=== PATIENT | female | born 1945 | race Caucasian/White ===

== ENCOUNTER 2016-11-09 16:49 | Inpatient (IN) | payer OTHER ==
[~2016-11-09] VITALS: Ht 154.9 cm; Wt 63.5 kg
[~2016-11-09 16:49] MED LIST: ADVAIR DISKUS 21 DSK INH; ALBUTEROL SULFAT3 M1 INH; B COMPLEX1 TA1 PO; B12-METHYL1000 MCG PO; CLARITIN10 MG PO; ENULOSE 2020 GM/30 M PO; FOLIC ACID0.8 MG PO; FUROSEMIDE20 MG PO; KLOR-CON 10MEQ10 MEQ PO; MASON NATURAL2000 IU PO; MIRTAZAPINE7.5 MG PO; MOXIFLOXACIN H400 M1 PO; OMEPRAZOLE40 MG PO; PREDNISONE10 MG PO; PROAIR HFA0.09 MG/Ac INH; SPIRIVA 18 MCG18 MCG PO; SYNTHROID0.025 MG PO; TRICOR 145 MG145 MG PO; VENTOLIN H0.09 MG/Ac INH; VITAMIN E400 IU PO; WELCHOL 625 MG625 MG PO
--- NOTE | 2016-11-09 16:52 | NUR ---
PT BIBA FROM HOME FOR INCREASED SOB OVER THE PAST FEW DAYS. PT ALSO STATES SHE HAD CHEST PAIN YESTERDAY THAT WENT ACROSS HER BACK. PT ARRIVES HAVING A DUO NEB SAT 98% WHILE ON NEB. PT IS ALERT AND ORIENTED, COUGHING AT TIMES WET COUGH THAT IS NORMAL FOR HER. PT DENIES CHEST PAIN TODAY.
--- NOTE | 2016-11-09 16:55 | ED DYSPNEA/ASTHMA COMPLAINT ---
History of Present Illness General Chief Complaint: Dyspnea (COPD, CHF, Other) Stated Complaint: BIBA SOB Source: patient, old records, EMS Exam Limitations: no limitations Allergies Coded Allergies: NO KNOWN ALLERGIES (06/08/12) Reconcile Medications Albuterol Sulfate 2.5 MG/3 ML (0.083 %) VIAL.NEB 1 Vial INH/ARIEL BID RESPIRATORY (Reported) Albuterol Sulfate (Proair Hfa) 90 MCG HFA.AER.AD 2 PUF INH PRN RESPIRATORY ( Reported) Cholecalciferol (Vitamin D3) (Vitamin D) 2,000 UNIT CAPSULE 1 CAP PO DAILY SUPPLEMENT (Reported) Cinacalcet HCl (Sensipar) 30 MG TABLET 1 TAB PO DAILY UNKNOWN (Reported) Cyanocobalamin (Vitamin B-12) 1,000 MCG TABLET 1 TAB PO DAILY SUPPLEMENT ( Reported) Fenofibrate 160 MG TABLET 1 TAB PO DAILY TRIGLYCERIDES/CHOLESTEROL (Reported) Fluticasone/Salmeterol (Advair 250-50 Diskus) 250 MCG-50 MCG/DOSE BLST.W.DEV 1 PUF INH BID RESPIRATORY (Reported) Levothyroxine Sodium 50 MCG TABLET 1 TAB PO AD THYROID (Reported) Levothyroxine Sodium (Levoxyl) 75 MCG TABLET 1 TAB PO AD THYROID (Reported) Loratadine (Claritin) (Unknown Strength) TABLET (Unknown Dose) PO DAILY ALLERGIES/RESPIRATORY (Reported) Mirtazapine (Remeron) 15 MG TAB.RAPDIS 0.5 TAB PO QHS UNKNOWN (Reported) Multivitamin,Ther and Minerals (Multivitamins With Minerals Hp) 1 EACH CAPSULE 1 CAP PO DAILY SUPPLEMENT (Reported) Omeprazole 40 MG CAPSULE.DR 1 CAP PO DAILY GI (Reported) Potassium Chloride 20 MEQ TAB.ER.PRT 1 TAB PO DAILY SUPPLEMENT (Reported) Tiotropium [place] (Spiriva) 18 MCG CAP.W.DEV 1 CAP INH DAILY RESPIRATORY ( Reported) Vitamin B Complex (B Complete) 1 EACH TABLET 1 TAB PO DAILY SUPPLEMENT ( Reported) Vitamin E Mixed (Vitamin E) 400 UNIT CAPSULE 1 CAP PO DAILY SUPPLEMENT ( Reported) Triage Note: PT BIBA FROM HOME FOR INCREASED SOB OVER THE PAST FEW DAYS. PT ALSO STATES SHE HAD CHEST PAIN YESTERDAY THAT WENT ACROSS HER BACK. PT ARRIVES HAVING A DUO NEB SAT 98% WHILE ON NEB. PT IS ALERT AND ORIENTED, COUGHING AT TIMES WET COUGH THAT IS NORMAL FOR HER. Triage Nurses Notes Reviewed? yes Onset: Gradual Duration: constant Timing: recent history Severity: severe Activities at Onset: none Prior Episodes/Possible Cause: frequent episodes, chronic episodes Modifying Factors: Improves With: rest. Worsens With: movement. 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 Patient does state that she had chest pain yesterday all day substernal in nature location nonradiating however today patient describes no chest pain. Complains of unresolved wheezing with multiple nebulizer treatments at home. EMS currently has dual nebulizer treatment administered ON arrival Denies any current fever or chills chest pain and arm pain jaw pain nausea vomiting hemoptysis leg swelling. (MICKEY COREY,STEPHY) Vital Signs & Intake/Output Vital Signs & Intake/Output Vital Signs Date Time Temp Pulse Resp B/P Pulse O2 O2 Flow FiO2 Ox Delivery Rate 11/09 1906 98.6 116 20 135/80 96 Nasal 3.0L Cannula 11/09 1715 96 11/09 1653 98.3 125 20 131/69 98 Aerosol Mask Past History Travel History Traveled to [place] past 21 day No Medical History Any Pertinent Medical History? see below for history Neurological: NONE (peripheral neuropathy from alc) EENT: NONE Cardiovascular: hypertension, hyperlipidemia (alcoholic cardiomyopathy), PERIPHERAL EDEMA Respiratory: asthma, COPD Gastrointestinal: alcoholic hepatitis, pancreatitis Hepatic: jaundice, fatty liver Renal: mild renal insufficiency Musculoskeletal: degen joint disease Psychiatric: substance abuse (ETOH) Endocrine: hypothyroidism Blood Disorders: coagulopathy Cancer(s): NONE PITCH GATHERER/Reproductive: NONE History of MRSA: No History of VRE: No History of CDIFF: No Pneumonia Vaccine: 06/24/14 Influenza Vaccine: 06/06/15 Surgical History Surgical History: hysterectomy, N Psychosocial History Who do you live with Patient/Self Services at Home Home Health Aide (3L n.c.), Oxygen What is your primary language Swazi Tobacco Use: Current Daily Use Daily Tobacco Use Amount/Type: =< 4 Cigarettes daily ETOH Use: denies use Illicit Drug Use: denies illicit drug use Family History Family History, If Any: FATHER FH ischemic heart disease MOTHER FH ischemic heart disease Hx Contributory? No (STEPHY LONG) Review of Systems Review of Systems Constitutional: Denies: chills, fever. EENTM: Reports: no symptoms. Respiratory: Reports: see HPI, short of breath. Cardiovascular: Reports: see HPI. Denies: peripheral edema. GI: Reports: no symptoms. Genitourinary: Reports: no symptoms. Musculoskeletal: Reports: no symptoms. Skin: Reports: no symptoms. Neurological/Psychological: Reports: no symptoms. Hematologic/Endocrine: Reports: no symptoms. Immunologic/Allergic: Reports: no symptoms. All Other Systems: Reviewed and Negative (STEPHY LONG) Physical Exam Physical Exam General Appearance: no apparent distress, alert Head: atraumatic Eyes: Bilateral: normal appearance. Ears, Nose, Throat: normal pharynx, normal ENT inspection Neck: normal inspection, supple Respiratory: wheezing, respiratory distress (MODERATE) Cardiovascular: tachycardia Gastrointestinal: normal bowel sounds, soft, non-tender, no organomegaly Extremities: normal inspection, normal capillary refill, normal range of motion, no edema Skin: intact, normal color, warm/dry Lymphatic: no anterior cervical venkat Core Measures ACS in differential dx? Yes Severe Sepsis Present: No Septic Shock Present: No (STEPHY LONG) Progress Differential Diagnosis: asthma, AMI, bronchitis, costochondritis, CHF, COPD, musculoskeletal pain, pericarditis, pulmonary embolism, pneumonia, pneumothorax, rib fracture, unstable angina Diagnostic Imaging: Viewed by Me: Radiology Read. Radiology Impression: no acute abnormality Initial ED EKG: SINUS TACHYCARDIA 127 BPM, BORDERLINE Q WAVE ABNORMALITIES Prior EKG: unchanged Comments: PATIENT: BELINDA CLEANING PRESENT AGE: 71 PATIENT ACCOUNT NO: [id number] : 47 LOCATION: [facility] ORDERING PHYSICIAN: STEPHY COREY SERVICE DATE: 11/09/16 EXAM TYPE: RAD - XRY-PORTABLE CHEST XRAY EXAMINATION: XR PORTABLE CHEST CLINICAL INFORMATION: Wheezing, shortness of breath COMPARISON: Chest x-ray 07/25/2016 TECHNIQUE: Portable AP portable 80 degree view of the chest was obtained. FINDINGS: Cardiac mediastinal contours appear stable. The lungs are clear without focal consolidation or effusion. Scattered subsegmental atelectasis left lung base is stable compared to prior study. Visualized osseous structures grossly unremarkable. IMPRESSION: No acute cardiopulmonary process DICTATED BY: MELIDA KEYES MD DATE/TIME DICTATED:11/09/161729 (MICKEY COREY,STEPHY) Plan of Care: Orders Procedure Date/time Status Nothing by Mouth 11/10 B Active Saline Lock 11/10 1911 Active Misc Message 11/10 1911 Active ED Holding Orders 11/10 1911 Active Vital Signs 11/10 1911 Active Code Status 11/10 1911 Active Admit to inpatient 11/09 1910 Active Patient Data 11/09 1899 Active Add-on Test (ER Only) 11/09 1738 Active MAGNESIUM 11/09 1700 Complete ETHANOL 11/09 1700 Complete RAPID VIRAL INFLUENZA A 11/09 1653 Complete BLOOD CULTURE 11/09 1653 Active TROPONIN LEVEL 11/09 1653 Complete COMPREHENSIVE METABOLIC PANEL 11/09 1653 Complete CBC WITHOUT DIFFERENTIAL 11/09 1653 Complete B-TYPE NATRIURETIC PEP (BNP) 11/09 1653 Complete EKG 11/09 1653 Active Laboratory Tests 11/09/16 170: Anion Gap 14, Estimated GFR > 60, BUN/Creatinine Ratio 21.1, Glucose 281 H, Calcium 11.0 H, Magnesium 0.9 *L, Total Bilirubin 1.5 H, AST 76 H, ALT 50, Alkaline Phosphatase 60, Troponin I 0.03, Cco-R-Vzaztgtnnnb Pept 2430 H, Total Protein 7.1, Albumin 4.4, Globulin 2.7, Albumin/Globulin Ratio 1.6, CBC w Diff MAN DIFF ORDERED, RBC 4.75, MCV 105.1 H, MCH 35.5 H, RDW 13.7, MPV 9.0, Gran % 91.9 H, Lymphocytes % 2.9 L, Monocytes % 4.9, Eosinophils % 0, Basophils % 0.3 , Absolute Granulocytes 18.3 H, Segmented Neutrophils 75, Band Neutrophils 15 H, Absolute Lymphocytes 0.6 L, Lymphocytes 6 L, Monocytes 4, Absolute Monocytes 1.0 H, Absolute Eosinophils 0, Absolute Basophils 0.1, Platelet Estimate ADEQUATE, Normal RBC Morphology N, PUBS MCHC 33.8, Serum Alcohol 11.0 Microbiology 11/09 1709 NASOPHARYN: Influenza Virus A & B Rapid Smear - COMP 11/09 1653 BLOOD: Blood Culture - ORD 11/09 1653 BLOOD: Blood Culture - ORD Patient currently with 3 L of oxygen nasal cannula supplementation her oxygen saturation is 95%. Patient is TACHYPNEIC has mild respiratory distress IN which chest x-ray was unremarkable however patient does have significant leukocytosis and bandemia. Urine BLOOD culture and sputum culture currently pending. Due to history of present illness patient's comorbidities of COPD and current smoker she will be treated for concerns of bacterial bronchitis with azithromycin and Rocephin. IV fluid was administered. Patient's tachycardia is most likely due to multiple DOSES OF BETA agonist administration today. My concern OF pulmonary embolism is very low. (STEPHY LONG) Departure Departure Disposition: STILL A PATIENT Condition: Guarded Clinical Impression Primary Impression: COPD (chronic obstructive pulmonary disease) Secondary Impressions: Bandemia, Bronchitis, Hypomagnesemia, Leukocytosis Referrals: EUNICE MARION MD (PCP/Family) Departure Forms: Customer Survey General Discharge Information Admission Note Spoke With: HEAVEN PAREDES MD Documentation of Exam: Documentation of any treatments & extenuating circumstances including Concerns Regarding Discharge (functional status, medication knowledge or non-compliance, living conditions, etc.) that warrant an admission rather than observation: [ Discussed patient with DR PAREDES who agrees with TELEmed admission for concerns of COPD,, tachycardia and hypo-magnesium IN WHICH patient requires IV steroids, IV antibiotics, IV fluid resuscitation, pulmonary consultation, repeat labs] Outpatient treatment at this time due to critical findings would BE medically harmful (STEPHY LONG) PA/CLINICAL DOCUMENTATION SPECIALIST Co-Sign Statement Statement: ED Attending supervision documentation- [x] I saw and evaluated the patient. I have also reviewed all the pertinent lab results and diagnostic results. I agree with the findings and the plan of care as documented in the PA's/CLINICAL DOCUMENTATION SPECIALIST's documentation. [] I have reviewed the ED Record and agree with the PA's/CLINICAL DOCUMENTATION SPECIALIST's documentation. [] Additions or exceptions (if any) to the PAs/CLINICAL DOCUMENTATION SPECIALIST's note and plan are summarized below: [] (CARYL HOFFMANN,TAYLA Pete) Critical Care Note Critical Care Note Critical Care Time: 30-74 min (STEPHY LONG)
[2016-11-09] MEDS ORDERED: LEVOXYL75 MCG PO (17:01)
[2016-11-09] MEDS ORDERED: LEVOTHYROXINE50 MCG PO (17:01)
[2016-11-09] MEDS ORDERED: POTASSIUM CHLO20 ME2 PO (17:02)
[2016-11-09] MEDS ORDERED: CLARITIN10 M1 PO (17:02)
[2016-11-09] MEDS ORDERED: VITAMIN D2000 UNIT PO (17:03)
[2016-11-09] MEDS ORDERED: VITAMIN E400 UNIT PO (17:03)
[2016-11-09] MEDS ORDERED: ADVAIR 250-501 EACH INH (17:04)
[2016-11-09] MEDS ORDERED: SPIRIVA18 MCG INH (17:04)
[2016-11-09] MEDS ORDERED: OMEPRAZOLE40 M1 PO (17:05)
[2016-11-09] MEDS ORDERED: ALBUTEROL2.5 MG/3 M INH/SOL (17:05)
[2016-11-09] MEDS ORDERED: SENSIPAR30 M1 PO (17:05)
[2016-11-09] MEDS ORDERED: B COMPLETE1 EACH PO (17:06)
[2016-11-09] MEDS ORDERED: MULTIVITAMINS1 EAC3 PO (17:06)
[2016-11-09] MEDS ORDERED: REMERON15 M3 PO (17:07)
[2016-11-09] MEDS ORDERED: VITAMIN B-121000 MC3 PO (17:07)
[2016-11-09 17:08] LABS: ABSOLUTE BASOPHIL COUNT 0.1 /CUMM (0.0-0.2); ABSOLUTE EOSINOPHIL COUNT 0 /CUMM (0.0-0.7); ABSOLUTE GRANULOCYTE CT 18.3 /CUMM (1.4-6.5); ABSOLUTE LYMPH COUNT 0.6 /CUMM (1.2-3.4); BASOPHIL % 0.3 % (0.0-2.0); EOSINOPHIL % 0 % (0-5); HEMATOCRIT 49.9 % (37-47); MEAN CORPUSCULAR HGB 35.5 PG (27.0-31.0); MEAN CORPUSCULAR HGB CONC 33.8 G/DL (33.0-37.0); MEAN CORPUSCULAR VOLUME 105.1 FL (81.0-99.0); PLATELET COUNT 171 /CUMM (130-400); RBC DISTRIBUTION WIDTH 13.7 % (11.5-14.5); RED BLOOD CELL CT 4.75 /CUMM (4.20-5.40); WHITE BLOOD CELL COUNT 19.9 /CUMM (4.8-10.8)
[2016-11-09] MEDS ORDERED: PROAIR HFA8.5 GM INH (17:08)
[2016-11-09] MEDS ORDERED: FENOFIBRATE160 M1 PO (17:08)
--- NOTE | 2016-11-09 17:34 | RADIOLOGY REPORT ---
EXAMINATION: XR PORTABLE CHEST CLINICAL INFORMATION: Wheezing, shortness of breath COMPARISON: Chest x-ray 07/25/2016 TECHNIQUE: Portable AP portable 80 degree view of the chest was obtained. FINDINGS: Cardiac mediastinal contours appear stable. The lungs are clear without focal consolidation or effusion. Scattered subsegmental atelectasis left lung base is stable compared to prior study. Visualized osseous structures grossly unremarkable. IMPRESSION: No acute cardiopulmonary process
[2016-11-09 17:35] LABS: GRANULOCYTE % 91.9 % (42.2-75.2)
--- NOTE | 2016-11-09 18:09 | NUR ---
PT RECEIVED SECOND NEB TREATMENT IF FLUIDS AND ABX INFUSING DIRECTED
--- NOTE | 2016-11-09 18:25 | NUR ---
CRITICAL TEST RESULTS [id number] BELINDA CLEANING 71 F TESTS AND RESULTS: MAGNESIUM 0.9 Results received and read back by: ANITRA RUFFIN Results received date and time: 11/09/161824 The following provider was notified of the results, and read the results back: MADHAV AREVALO Notified date and time: 11/09/16 at 1825
--- NOTE | 2016-11-09 19:03 | NUR ---
MAG INFUSING DIRECTED
--- NOTE | 2016-11-09 19:57 | NUR ---
CONT TO AWAIT BED. ZITHROMAX 500 MG IV CONT TO INFUSE HEIGHT ELEVATED. PT SOB AT REST REPORTS SEVERE DISCOMFORT ON STRETCHER, SKIN DRY AND FLAKY, AUDIBLES WHEEZES AND RHONCHI THROUGHOUT BUT DENEIS NEED FOR BREATHING TREATMENT REPORTS JUST WANTING TO BE MORE COMF IN BED. DAUGHTER AT BEDSIDE.
--- NOTE | 2016-11-09 20:01 | History & Physical ---
KRISTIAN GOINS MD 11/09/16 2001: General Information and HPI MD Statement: I have seen and personally examined BELINDA BARBOSA and documented this H&P. The patient is a 71 year old F who presented with a patient stated chief complaint of shortness of breath. Source of Information: patient, family, old records Exam Limitations: no limitations History of Present Illness: Ms. 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 Patient reports that for the past 1 month, her baseline shortness of breath has worsened and has required to increase her nebulizer usage. However, for the past few days her shortness of breath has progressed to require day-time usage of her oxygen and even more frequent nebulizer treatments. This shortness of breath is constant, worse with exertion and talking and has resulted in decreased exercise tolerance. Associated symptoms include wheezing, cough minimally productive of sputum, lethargy, anxiety, decreased mobility, and this substernal, 8/10 chest pressure that is intermittent and occasionally radiates to the back. This chest pain is not relieved with rest, slightly improved from an 8/10 to a 6/10 with tylenol, and always occurs when her shortness of breath is severe. Patient also endorses new onset nausea and abdominal pain which has caused her to limit her PO intake. Patient denies fever, chills, sore throat, recent illness/ear/throat infection, orthopnea, abdominal pain, vomiting. Social history is significant for tobacco abuse with use of 4-5 cigarettes per day; patient has been smoking for 55 years and is currently in the process of cutting back. She also drinks 2-3 vodka servings a day and has so for years. She denies illicit drug use. Patient lives at home with her dog and uses supplemental oxygen. She follows [facility] Dr. Sullivan as her cheese specialist and Dr. Sheppard as her order make up clerk. Allergies/Medications Allergies: Coded Allergies: NO KNOWN ALLERGIES (06/08/12) Home Med list Albuterol Sulfate 2.5 MG/3 ML (0.083 %) VIAL.NEB 1 Vial INH/ARIEL BID RESPIRATORY (Reported) Albuterol Sulfate (Proair Hfa) 90 MCG HFA.AER.AD 2 PUF INH PRN RESPIRATORY ( Reported) Cholecalciferol (Vitamin D3) (Vitamin D) 2,000 UNIT CAPSULE 1 CAP PO DAILY SUPPLEMENT (Reported) Cinacalcet HCl (Sensipar) 30 MG TABLET 1 TAB PO DAILY UNKNOWN (Reported) Cyanocobalamin (Vitamin B-12) 1,000 MCG TABLET 1 TAB PO DAILY SUPPLEMENT ( Reported) Fenofibrate 160 MG TABLET 1 TAB PO QPM TRIGLYCERIDES/CHOLESTEROL (Reported) Fluticasone/Salmeterol (Advair 250-50 Diskus) 250 MCG-50 MCG/DOSE BLST.W.DEV 1 PUF INH BID RESPIRATORY (Reported) Furosemide (Lasix) 20 MG TABLET 1 TAB PO DAILY Heart (Reported) Levothyroxine Sodium 50 MCG TABLET 1 TAB PO M,T,W,TH,FR THYROID (Reported) Levothyroxine Sodium (Levoxyl) 75 MCG TABLET 1 TAB PO SA,BAEZA THYROID (Reported ) Loratadine (Claritin) (Unknown Strength) TABLET (Unknown Dose) PO DAILY ALLERGIES/RESPIRATORY (Reported) Mirtazapine (Remeron) 15 MG TAB.RAPDIS 0.5 TAB PO QHS UNKNOWN (Reported) Multivitamin,Ther and Minerals (Multivitamins With Minerals Hp) 1 EACH CAPSULE 1 CAP PO DAILY SUPPLEMENT (Reported) Omeprazole 40 MG CAPSULE.DR 1 CAP PO DAILY GI (Reported) Potassium Chloride 20 MEQ TAB.ER.PRT 1 TAB PO DAILY SUPPLEMENT (Reported) Tiotropium Sherrill (Spiriva) 18 MCG CAP.W.DEV 1 CAP INH DAILY RESPIRATORY ( Reported) Vitamin B Complex (B Complete) 1 EACH TABLET 1 TAB PO DAILY SUPPLEMENT ( Reported) Vitamin E Mixed (Vitamin E) 400 UNIT CAPSULE 1 CAP PO DAILY SUPPLEMENT ( Reported) Compliance With Home Meds: GOOD Past History Travel History Traveled to [place] past 21 day No Medical History Neurological: NONE (peripheral neuropathy from alc) EENT: NONE Cardiovascular: hypertension, hyperlipidemia (alcoholic cardiomyopathy), PERIPHERAL EDEMA Respiratory: asthma, COPD Gastrointestinal: alcoholic hepatitis, pancreatitis Hepatic: jaundice, fatty liver Renal: mild renal insufficiency Musculoskeletal: degen joint disease Psychiatric: substance abuse (ETOH) Endocrine: hypothyroidism Blood Disorders: coagulopathy Cancer(s): NONE MUSIC AGENT/Reproductive: NONE History of MRSA: No History of VRE: No History of CDIFF: No Pneumonia Vaccine: 06/24/14 Influenza Vaccine: 06/06/15 Surgical History Surgical History: hysterectomy, N Past Family/Social History Family History Relations & Conditions if any FATHER FH ischemic heart disease MOTHER FH ischemic heart disease Psychosocial History Where do you live? Home Who Do You Live With? alone Services at Home: Home Health Aide (3L n.c.), Oxygen Primary Language: Armenian Smoking Status: Current Everyday Smoker ETOH Use: heavy use Illicit Drug Use: denies illicit drug use Living Will? unknown Power of Dry Kiln Burner/HCP? unknown Functional Ability ADLs Independent: dressing, eating, toileting, bathing. Ambulation: independent IADLs Independent: shopping, housework, finances, food prep, telephone, transportation , medication admin. Review of Systems Review of Systems Constitutional: Reports: diaphoresis, malaise. Denies: chills, fever, unexplained weight loss. EENTM: Denies: visual changes, nasal congestion, throat pain. Cardiovascular: Reports: chest pain. Denies: orthopena, palpitations, peripheral edema. Respiratory: Reports: cough, short of breath, wheezing. Denies: orthopnea, sputum production , stridor. GI: Reports: see HPI, nausea. Denies: abdominal pain, vomiting. Genitourinary: Denies: dysuria, hematuria. Musculoskeletal: Denies: back pain. Skin: Denies: rash. Neurological/Psychological: Reports: anxiety. Denies: confusion, headache. Hematologic/Endocrine: Denies: bruising, bleeding. Immunologic/Allergic: Denies: splenectomy. All Other Systems: Reviewed and Negative Exam & Diagnostic Data Last 24 Hrs of Vital Signs/I&O Vital Signs Date Time Temp Pulse Resp B/P Pulse O2 O2 Flow FiO2 Ox Delivery Rate 11/10 2055 99.2 115 20 146/88 97 Nasal 3.0L Cannula 11/09 1905 98.6 116 20 135/80 96 Nasal 3.0L Cannula 11/09 1715 96 11/09 1653 98.3 125 20 131/69 98 Aerosol Mask Physical Exam General Appearance Alert, Oriented X3, Cooperative, Moderate Distress Skin No Rashes, No Significant Lesion HEENT Atraumatic, PERRLA, EOMI, Mucous Membr. moist/pink Neck Supple, +2 Carotid Pulse wo Bruit Lymphatic Cervical nl Cardiovascular Tachycarid with normal S1/S2 Lungs Diffuse wheezing in all lung bridges with decreased air entry bilaterally. Decreased basal breath sounds. Abdomen Normal Bowel Sounds, Soft, Petechia noted on abdomen., tenderness to palpation of epigastric region Neurological Normal Speech, Normal Tone Extremities No Clubbing, No Cyanosis, No Edema, Normal Pulses, No Tenderness/ Swelling Vascular Pulses Symmetrical Last 24 Hrs of Labs/Pablo: Laboratory Tests 11/09/162054: pH 7.46 H, pCO2 33 L, pO2 85, HCO3 23, ABG O2 Sat (Measured) 94.0 L, P-50 ( Temp Corrected) Y, Carboxyhemoglobin 1.9, O2 Concentration % 3L, Temperature 98.9, O2 Delivery Method N/C, Phlebotomy Draw Site RIGHT RADIAL 11/09/16 170: Anion Gap 14, Estimated GFR > 60, BUN/Creatinine Ratio 21.1, Glucose 281 H, Calcium 11.0 H, Magnesium 0.9 *L, Total Bilirubin 1.5 H, AST 76 H, ALT 50, Alkaline Phosphatase 60, Troponin I 0.03, Nnd-K-Rlhakauvlvt Pept 2430 H, Total Protein 7.1, Albumin 4.4, Globulin 2.7, Albumin/Globulin Ratio 1.6, CBC w Diff MAN DIFF ORDERED, RBC 4.75, MCV 105.1 H, MCH 35.5 H, RDW 13.7, MPV 9.0, Gran % 91.9 H, Lymphocytes % 2.9 L, Monocytes % 4.9, Eosinophils % 0, Basophils % 0.3 , Absolute Granulocytes 18.3 H, Segmented Neutrophils 75, Band Neutrophils 15 H, Absolute Lymphocytes 0.6 L, Lymphocytes 6 L, Monocytes 4, Absolute Monocytes 1.0 H, Absolute Eosinophils 0, Absolute Basophils 0.1, Platelet Estimate ADEQUATE, Normal RBC Morphology N, PUBS MCHC 33.8, Serum Alcohol 11.0 Microbiology 11/09 2099 URINE ROUT: Urine Culture - ORD 11/09 1936 BLOOD: Blood Culture - RECD 11/09 1929 BLOOD: Blood Culture - RECD 11/09 1709 NASOPHARYN: Influenza Virus A & B Rapid Smear - COMP Diagnostic Data EKG Results Sinus tacyhcardia, HR 127, QTC 431, WA 120 CXR Results IMPRESSION: No acute cardiopulmonary process Assessment/Plan Assessment: Ms. 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 She has no recent travel, no recent illness, no change in medicaitons and no sick contacts. Associated symptoms include wheezing, cough minimally productive of sputum, malaise, decreased oral intake, nausea without vomiting, decreased exercise tolerance, substernal chest pain that radiates to the back, increased usage of her home oxygen and home nebulizers. In the ED: Vital signs showed T 98.3, HR 125, RR 20, BP 131/69 and O2 saturation of 98% on aerosol mask. Labs were significant for leukocytosis to 19.9 with 15 bands and 92% granulocytes, H&H 16.9/49.9, Na 135, Cl 97, BUN 19, Glu 281, Calcium 11, Mag 0.9, TBili 1.5, AST 76, ALT 50, trop 0.03, proBNP 2430 and serum alcohol 11. ABG showed pH 7.46, pCO2 33, pO2 85, HCO3 23 and O2 sat 94% on 3L NC. CXR showed no acute cardiopulmonary process. EKG showed sinus tachycardia at HR 127, QTC 431 and WA 120. Chest CTA showed no acute PE, right middle lobe opacities, stable emphysematous changes, unchanged left adrenal adenoma, and acute pancreatitis. Patient is admitted to the telemetry floor and the following is the management: 1. Acute on chronic respiratory failure with sepsis in the setting of severe emphysema and COPD * Diffuse wheezing appreciated on lung examination with tachypnea and difficulty speaking more than 2 words at a time * Likely COPD exacerbation with diffuse wheezing on examination as well as pneumonia seen on CTA * Patient given 125 IV solumedrol, proven, azithromycin, and ceftriaxone while in the ED * ABG shows no retention and patient currently does not require intubation, however she agrees to intubation if need arises; monitor respiratory status and consider BiPAP if she becomes fatigued * Continue supplemental O2 as needed to maintain appropriate O2 saturation * Continue steroids with 60 mg IV solumdrol Q8 * Pulmonology consult with Dr. Laurie to be placed in the AM * Leukocytosis with bandemia is present and CTA shows right middle lobe opacity, will treat with IV ceftriaxone and azithromycin * Follow up blood cultures, LRC 2. Tachycardia * Possibly secondary to frequent nebulizers she has had today along with current anxiety (patient has had a total of 4 neb treatments today) * In the setting of hypoxia, tachycardia and a moderate Wells score, CTA was ordered and ruled out PE * Trend troponins/EKG to rule out ACS, first trop/EKG shows no elevation/no ST changes * Continuous telemetry monitoring, no need for cardio consult at this time 3. Acute pancreatitis * CTA suggestive of acute pancreatitis, along with nausea, decreased oral intake , and tenderness to palpation of epigastric area * NPO for now * IV LR at 150 cc/h and banana bag at 125 cc/h * Morphine for severe pain * No GI consult needed at this time * Hold lasix due to hemoconcentration 4. Hypomagnesemia * Possibly secondary to chronic alcohol use vs hypercalcemia * Patient given 2 bags magnesium sulfate in the emergency room * Will recheck Mag level in AM and replete as necessary 5. Hypercalcemia * Patient reports persistent hypercalcemia at least for the last 2 months which she was recently started on Cinacalcet for * Continue cinacalcet 30 mg PO daily * Monitor Ca level during hospitalization 6. Alcohol abuse * Patient counseled on alcohol cessation * Initiate CIWA * IV lorazepam Q1P per CIWA scale * F/U B12, folate 7. Tobacco abuse * Patient counseled on tobacco cessation, currently attempting to decrease use * Patient does not want a nicotine patch at this time 8. Hypothyroidism * Continue synthroid 9. HLD * Continue fenofibrate 145 mg PO daily FULL CODE DVTP: SC Lovenox Heart healthy diet Mild pain pathway As Ranked By This Provider Problem List: 1. Hypomagnesemia 2. Bandemia 3. Leukocytosis Core Measures/Miscellaneous Acute Coronary Syndrome ACS Diagnosis: No Cerebrovascular Accident CVA/TIA Diagnosis: No Congestive Heart Failure CHF Diagnosis: No Venous Thromboembolism VTE Risk Factors: Acute medical illness, Age > 40, Smoking [facility] prophylaxis d/t: No contraindications No VTE Pharm Prophylaxis d/t: No contraindications VTE Diagnosis: No VTE Type: NONE VTE Confirmed by (Test): NONE Severe Sepsis Severe Sepsis Present: No Septic Shock Septic Shock Present: No Miscellaneous Documentation Attending Case Discussed With: EARNESTINE PAREDES MDKwesi Primary Care Physician: SANAM HOFFMANN,[facility] Patient sees these Specialists Dr. Sullivan, Pulmonology Dr. Sheppard, Endocrinology Level of Patient Care: Telemetry EARNESTINE PAREDES MD 11/09/162125: Attending MD Review Statement Attending Statement Attending MD Statement: examined this patient, discuss w/resident/PA/STRETCH MACHINE OPERATOR, agreed w/resident/PA/STRETCH MACHINE OPERATOR, discussed with family Attending Assessment/Plan: 71 yo F smoker, with h/o COPD on 2.5 L nocturnal O2, alcohol dependence with h/o DT's, alcoholic cardiomyopathy and pancreatitis, HTN, hypercalcemia on cinacalcet, hypothyroidism, B12 deficiency with peripheral neuropathy, is here with gradual worsening of dyspnea on exertion with increasing use of inhalers and daytime use of oxygen. Associated with cough, wheezing, chest tightness and anxiety. C/o nausea and epigastric abdominal pain. No sick contacts, recent travel. Last COPDE was Sep 2015, intubated in 2012 for COPDE. She continues to drink alcohol daily. Vitals: afebrile, tachycardic to 110-120's, tachypneic, BP 146/88, sats 97% on 3L. On our evaluation, patient was in moderate respiratory distress, unable to complete full sentences, anxious with pursed lip breathing. Chest: b/l expiratory wheezes with diffuse rhonchi. Labs: WBC 19.9, H/H 16.9/49.9, macrocytosis, Plt 171, bandemia 15, BUN 19, glucose 281, Ca 11, Mag 0.9, T. Bili 1.5, AST 76, ALT 50, trop neg. S. Alcohol 11. AB.46/33/85/23 on 3L ( respiratory alkalosis). CXR: no acute process. CTA: no PE, RML pneumonia, emphysema, imaging suggestive of acute pancreatitis. EKG: Sinus tachycardia. Echo (2015): EF > 55%. Tele admit for 24 hours (given hypomagnesemia and tachycardia) can then downgrade to GM if no overnight events. 1. Acute on chronic hypoxic respiratory failure with sepsis 2/2 right middle lobe pneumonia and COPDE. No PE or CHF. TRC nebs, sputum cultures, urine legionella and strep Ag, NPO, low threshold for ICU transfer in case respiratory status worsens, IV ceftriaxone and azithro, IV steroids. Smoking cessation counseling, patient refuses nicotine patch. Pulm consult Dr. Sullivan. Continue advair, hold spiriva. 2. Chest tightness, radiating to the back 2/2 pneumonia and COPD. Serial EKG and troponin, holding off on Echo. 3. Epigastric pain, nausea, CT e/o acute pancreatitis in the setting of alcohol use, checking lipase and amylase. Keep NPO, IV fluids, pain management. Hold lasix. 4. Severe hypomagnesemia 2/2 alcohol use, alcohol dependence. Replete magnesium, monitor K and phos levels. NPO, aspiration precautions, CIWA protocol, IV ativan per CIWA, banana bag daily. Check B12, folic acid. 5. Hypercalcemia. Ct. Cinacalcet. 6. Hyperglycemia. Monitor accucheks, last A1c 6.0 (Sep 2015), please recheck HbA1c. If persistently elevated sugars while on steroids, may need insulin coverage. 7. Transaminitis alcohol induced. DVT ppx Lovenox. Full code. KULDIP HOFFMANN,[facility] 11/09/16 2224: Resident Review Statement Resident Statement: examined this patient, discussed with internet ecommerce specialist, agreed with internet ecommerce specialist Other Findings: 71 y/o F with a PMH of COPD on 2.0 L at night (severe emphysema with an asthma component), ETOH with alcoholic cardiomyopathy, ETOH induced pancreatitis, HTN, HLD, Hypothyroidism who presents to the ED with complaints of increased shortness of breath over the last 24 hours. She reports that she started to have chest pain yesterday, that went across her back. This was associated with some shortness of breath. She is unable to characterize her pain. She used her nebulizers twice this morning, she also received a treatment on her way here and received one more treatment in the ED. No recent URI or other infections. She does have a history of severe COPD and was intubated in 2014. Vitals: Showed increased RR, Tachycardia, afebrile Labs: Elevated WBC with bandemia, Hypomagnesemia to 0.9, ProBNP 2430 Imaging: CXR WNL ABG shows respiratory alkalosis with no retention of CO2 Physical Exam: In visible respiratory distress and is not able to complete full sentences. Appears to be anxious. Wheezing on exam, bilateral rhonchi. No pedal edema. Abdomen benign. Problem List: Shortness of breath 2/2 COPD exacerbation vs PNA vs PE Severe Hypomagnesemia 2/2 ETOH usage vs Hypercalcemia Leukocytosis with bandemia possibly 2/2 ETOH usage Tachycardia from usage of Albuterol vs work of breathing Acute Pancreatitis as evidenced from CTA and physical exam HTN Hypothyroidism Hyperlipidemia ETOH usage Current smoker Plan: * Admit to Telemetry * CTA to r/o PE * If the patient continues to have respiratory distress or increased work of breathing or seems to be getting tired, will switch to BiPAP initially and then can be intubated as needed. Both patient and her niece (POA) are aware of this possibility. * Banana bag, LR at 150 ml/hr. NPO for now. * IV Solumedrol 60 Q8 for now and taper as needed. * Check Mag in AM. * Repeat Trops and EKG * CIWA protocol and Ativan PRN * Patient is refusing a nicotine patch * Gentle hydration * DVT PPX: Lovenox SubQ * Pain Pathway: Tylenol PRN * Code Status: Full code
--- NOTE | 2016-11-09 20:56 | NUR ---
HOUSESTAFF FINISHED EVAL, ABGS DONE.
--- NOTE | 2016-11-09 21:00 | NUR ---
PER HOUSESTAFF PT MAY NEED TO GO TO ICU DEPENDENT ON ABGS.
--- NOTE | 2016-11-09 21:10 | NUR ---
REPORT GIVEN TO CLAUDIA IN TELE PT TO HAVE CTA 1ST.
--- NOTE | 2016-11-09 21:28 | Admission Certification ---
Admission Certification Certification Statement - As attending physician, I certify that at the time of - admission, based on clinical presentation, severity of - symptoms, need for further diagnostic testing and - therapeutic interventions, and risk of adverse outcomes - without in-hospital treatment, in my clinical assessment, - this patient requires an acute hospital stay for a minimum - of two nights or longer. I have also considered psychsocial - factors such as support system, advanced age, financial - issues, cognitive issues, and failed out-patient treatments, - past re-admission history, safety of patient, and lack of - compliance as applicable. Specific rationale supporting this admission is: Acute on chronic hypoxic respiratory failure and sepsis 2/2 RML pneumonia and COPD exacerbation. Needs Telemetry monitoring given hypomagnesemia likely alcohol induced, and persistent tachycardia.
--- NOTE | 2016-11-09 21:44 | NUR ---
CONT TO AWAIT CTA. CHIEF ADMINISTRATIVE OFFICER TO CALL WHEN READY/
[2016-11-09] MEDS ORDERED: LASIX20 M1 PO (21:47)
--- NOTE | 2016-11-09 22:02 | NUR ---
DISTRIBUTION BOOKED TO CT THEN TELE.
[2016-11-09 22:29] VITALS: BP 142/78
--- NOTE | 2016-11-09 22:40 | CT SCAN REPORT ---
EXAMINATION: CT ANGIOGRAM OF THE CHEST WITH AND WITHOUT CONTRAST (CT PULMONARY ANGIOGRAM FOR PE) CLINICAL INFORMATION: Reason for Study:
Presumptive Dx: PE
Signs Symptoms: SHORTNESS OF BREATH, TACHYCARDIA WITHOUT INFILTRATE ON
COMPARISON: Same day chest x-ray. CT chest 09/14/2016 TECHNIQUE: Prior to contrast administration, noncontrast localization images were obtained. Subsequently, multidetector volumetric imaging was performed from the thoracic inlet to below the diaphragms following the administration of 120 mL Omnipaque 350 intravenous contrast. No contrast reaction reported Sagittal, coronal, and MIP oblique sagittal reformatted images were obtained on the CT workstation, uploaded to PACS, and reviewed. Total exam dose-length product 463.9 mGy-cm FINDINGS: QUALITY OF STUDY/CONTRAST BOLUS: Satisfactory. PULMONARY ARTERIES: No central or segmental pulmonary emboli. THORACIC AORTA: No aneurysm or dissection. LUNG: There are mild upper lobe predominant centrilobular emphysematous changes. Linear opacities are present with in the right middle lobe. Otherwise, there is no consolidation. No effusion. At the visualized airways appear patent to the subsegmental level. PLEURA: No pleural effusion or pneumothorax. MEDIASTINUM: Normal heart size. No pericardial effusion. No hilar or mediastinal lymphadenopathy. No evidence of septal bowing or right heart strain. There are calcifications involving the left anterior and left circumflex coronary arteries. CHEST WALL/AXILLA: No axillary or internal mammary lymphadenopathy. OSSEOUS STRUCTURES: No acute or suspicious osseous abnormality. UPPER ABDOMEN: The liver appears diffusely low in attenuation suggesting fatty infiltration. On these limited views of the upper abdomen the pancreas appears swollen and there is diffuse inflammatory changes surrounding the visualized portions of the body and head of the pancreas. Small left adrenal adenoma measuring 1.4 cm is demonstrated. This is stable compared to prior study. No reflux of contrast into the hepatic veins to suggest elevated right heart pressures. IMPRESSION: 1. No CT evidence for acute pulmonary embolism. 2. Right middle lobe opacities are increased compared to the CT from 01/11/2016. Findings may correspond to underlying pneumonia. Given the location, atypical organisms can be considered. 3. Stable mild centrilobular emphysematous changes. 4. Unchanged appearance of left adrenal adenoma. 5. Imaging findings suggestive of acute pancreatitis. Recommend correlation with laboratory tests. VTE: negative
[2016-11-10] VITALS (10 sets, daily range): BP systolic 13–150; BP diastolic 60–80
--- NOTE | 2016-11-10 04:29 | NUR ---
LATE ADMISSION ENTRY: PT ARRIVED TO THE FLOOR VIA STRETCHER AT APPROX 2220 ON 11/09. ASSISTED ONTO HOSPITAL BED X4 PEOPLE. ON ARRIVAL, PT ALERT, ANXIOUS, AND EXPERIENCING VERY LABORED BREATHING. VSS. 142/78. HR 112 SINUS TACH, 97.8 ORAL TEMP, 28 RR, 97% ON 3LNC. LUNG SOUNDS RHONCHEROUS AND WHEEZING, INCREASING WITH EXERTION. TACHYPNEIC. BASELINE 2LNC AT HOME AT BEDTIME BUT ON 3LNC AT THIS TIME. ABD FIRM AND DISTENDED. STATES INCREASING NAUSEA AT HOME, UNABLE TO FINISH MEALS FOR ABOUT TWO WEEKS NOW DUE TO NAUSEA. C/O ABD TENDERNESS TO LOWER QUADRANTS, INCREASED WITH PALPATION. +BS. +FLATUS. SKIN INTACT. NO EDEMA. 2ND MAGNESIUM BOLUS RUNNING. PT ASSESSED FOR CIWA AND NOTED TO BE TREMULOUS, EVEN WITHOUT EXTENDING HANDS FORWARD. VERY ANXIOUS. AND C/O HEADACHE. 0.25MG IV ATIVAN GIVEN ONE TIME ORDER. CONTINUING TO MONITOR PATIENT DUE TO HX OF DETOXING FROM ETOH AND DRINKING 2-3 SERVINGS OF VODKA DAILY, LAST CONSUMING ON 11/09 BEFORE LUNCH PER PT. PT DROWSY BUT AROUSABLE AFTER ATIVAN. MD GOINS ASSESSED PT AND STATED TO MAKE HER NPO DUE TO PANCREATITIS. LR @ 150ML/HR HUNG. NPO. FALL RISK. BED LOW AND LOCKED. BED ALARM. ORIENTED TO CALL [facility] AND ROOM. WILL CTM.
--- NOTE | 2016-11-10 07:31 | PN- Housestaff ---
PERICO STACK 11/10/16 0730: Subjective Follow-up For: Acute pancreatitis Right middle lobe pneumonia Hypomagnesemia Prediabetic Subjective: Patient seen and examined this morning. She appeared winded and in mild distress. She continues to have low-grade temp of 99.2. Her leukocytosis is however improving 19.9-17. Her magnesium level has improved to 2.5 this morning. Patient denies any chest pain/abdominal pain/headache/dizziness. Review of Systems Constitutional: Reports: see HPI. Objective Last 24 Hrs of Vital Signs/I&O Vital Signs Date Time Temp Pulse Resp B/P Pulse O2 O2 Flow FiO2 Ox Delivery Rate 11/10 0800 Nasal 3.0L Cannula 11/10 0800 99.2 106 20 150/70 11/10 0700 99.2 106 20 150/70 97 Nasal 3.0L Cannula 11/10 0600 110 11/10 0400 98.9 108 20 132/80 11/10 0200 108 11/10 0000 107 11/09 2234 97 Nasal 3.0L Cannula 11/09 2229 97.8 112 28 142/78 97 Nasal 3.0L Cannula 11/09 2056 99.2 115 20 146/88 97 Nasal 3.0L Cannula 11/09 1906 98.6 116 20 135/80 96 Nasal 3.0L Cannula 11/09 1715 96 11/09 1653 98.3 125 20 131/69 98 Aerosol Mask Intake & Output 11/10 1600 11/10 0800 11/10 0000 Intake Total 1100 0 Output Total 350 Balance 750 0 Intake, IV 1050 Intake, Oral 50 0 Number 0 Bowel Movements Output, Urine 350 Patient 63.503 kg 63.503 kg Weight Physical Exam General Appearance: Alert, Oriented X3, Mild Distress Skin: No Rashes HEENT: Atraumatic Neck: Supple Cardiovascular: Normal S1, Normal S2 Lungs: bilateral expiratory wheezes present in lung bridges Abdomen: Soft, No Tenderness, No Hepatospenomegaly Extremities: No Edema Current Medications: Current Medications Sig/Liz Start time Last Medication Dose Route Stop Time Status Admin Acetaminophen 650 MG Q6P PRN 11/09 2215 AC PO Albuterol Sulfate 3 ML ONCE ONE 11/09 1745 DC 11/09 INH 11/09 1746 1751 Azithromycin 500 MG DAILY 11/10 1000 AC 11/10 Sodium Chloride 250 ML IV 0926 Azithromycin 500 MG ONCE ONE 11/09 1745 DC 11/09 Sodium Chloride 250 ML IV 11/09 1844 1808 Ceftriaxone Sodium 1,000 MG DAILY 11/10 1000 AC 11/10 IV 0925 Ceftriaxone Sodium 1,000 MG ONCE ONE 11/09 1745 DC 11/09 IV 11/09 1746 1803 Ceftriaxone Sodium 0 .STK-MED ONE 11/09 1745 DC .ROUTE Cinacalcet 30 MG DAILY 11/10 1000 AC 11/10 PO 0934 Cyanocobalamin/ 1 BAG DAILY 11/10 1000 AC Thiamine/Pyridoxine IV Sodium Chloride 1,000 ML Enoxaparin Sodium 40 MG DAILY 11/10 1000 AC 11/10 SC 0934 Fenofibrate 145 MG DAILY 11/10 1000 AC 11/10 PO 0934 Lactated Ringer's 1,000 ML Q6H 11/10 0030 AC 11/10 IV 0818 Levothyroxine Sodium 0.05 MG MoTuWeThFr@0700 11/10 0700 AC 11/10 PO 0611 Levothyroxine Sodium 0.075 MG SuSa@0700 11/09 2145 AC PO Lorazepam 0.25 MG ONCE ONE 11/09 2115 DC 11/09 IV 11/09 2116 2253 Lorazepam 0 Q1P PRN 11/09 2115 AC IV Magnesium Sulfate 1 GM Q2H 11/10 0015 DC 11/10 Dextrose/Water 100 ML IV 11/10 0414 0330 Magnesium Sulfate 1 GM Q2H 11/09 1830 DC 11/09 Dextrose/Water 100 ML IV 11/09 2229 2135 Methylprednisolone 60 MG Q8 11/09 2200 AC 11/10 IV 0611 Methylprednisolone 0 .STK-MED ONE 11/09 1714 DC .ROUTE Methylprednisolone 125 MG ONCE ONE 11/09 1700 DC 11/09 IV 11/09 1701 1714 Mirtazapine 7.5 MG AT BEDTIME 11/09 2200 AC 11/09 PO 2304 Morphine Sulfate 2 MG Q6P PRN 11/10 0030 AC IV Omeprazole 40 MG DAILY AC 11/10 0700 AC 11/10 PO 0611 Patient Medication 1 UNIT ONE NR 11/09 2200 DC Teaching ED 11/09 2230 Patient Medication 1 UNIT ONE NR 11/09 2200 DC Teaching ED 11/09 2300 Sodium Chloride 1,000 ML Q13H 11/09 2145 DC 11/10 IV 11/10 2344 0006 Sodium Chloride 1,000 ML BOLUS ONE 11/09 1745 DC 11/09 IV 11/09 1844 1808 Tiotrop[address] [facility] 1 PUF DAILY 11/10 1000 CAN INH Last 24 Hrs of Lab/Pablo Results Last 24 Hrs of Labs/Mics: Laboratory Tests 11/10/16 0730: Anion Gap 7, Estimated GFR > 60, BUN/Creatinine Ratio 22.5, Magnesium 2.5 H, Troponin I 0.02, Vitamin B12 > 1000 H, Folate > 20.0 H, CBC w Diff MAN DIFF ORDERED, RBC 3.88 L, MCV 106.1 H, MCH 35.2 H, RDW 14.1, MPV 9.6, Gran % 88.9 H, Lymphocytes % 5.3 L, Monocytes % 5.8, Eosinophils % 0, Basophils % 0 L, Absolute Granulocytes 15.1 H, Segmented Neutrophils 84 H, Band Neutrophils 7 H, Absolute Lymphocytes 0.9 L, Lymphocytes 6 L, Monocytes 3, Absolute Monocytes 1.0 H, Absolute Eosinophils 0, Absolute Basophils 0, Platelet Estimate ADEQUATE, Normocytic RBCs VERIFIED, Normochromic RBCs VERIFIED, PUBS MCHC 33.2 11/10/16 0137: Urinalysis LIGHT H, Urine Color YEL, Urine Clarity CLDY H, Urine pH 6.5, Ur Specific [place] <= 1.005, Urine Protein TRACE H, Urine Ketones 15 H, Urine Nitrite NEG, Urine Bilirubin NEG, Urine Urobilinogen 0.2, Ur Leukocyte Esterase NEG, Ur Microscopic SEDIMENT EXAMINED, Urine RBC 3-5, Urine WBC 1-3 H, Ur Epithelial Cells MANY H, Urine Bacteria FEW H, Urine Mucus FEW, Urine Hemoglobin SMALL H, Urine Glucose 500 H 11/09/16 2226: Troponin I 0.04, Amylase 744 H, Lipase 4525 H 11/09/165: pH 7.46 H, pCO2 33 L, pO2 85, HCO3 23, ABG O2 Sat (Measured) 94.0 L, P-50 ( Temp Corrected) Y, Carboxyhemoglobin 1.9, O2 Concentration % 3L, Temperature 98.9, O2 Delivery Method N/C, Phlebotomy Draw Site RIGHT RADIAL 11/09/16 1701: Anion Gap 14, Estimated GFR > 60, BUN/Creatinine Ratio 21.1, Glucose 281 H, Calcium 11.0 H, Magnesium 0.9 *L, Total Bilirubin 1.5 H, AST 76 H, ALT 50, Alkaline Phosphatase 60, Troponin I 0.03, Nbi-M-Pfaytoverim Pept 2430 H, Total Protein 7.1, Albumin 4.4, Globulin 2.7, Albumin/Globulin Ratio 1.6, CBC w Diff MAN DIFF ORDERED, RBC 4.75, MCV 105.1 H, MCH 35.5 H, RDW 13.7, MPV 9.0, Gran % 91.9 H, Lymphocytes % 2.9 L, Monocytes % 4.9, Eosinophils % 0, Basophils % 0.3 , Absolute Granulocytes 18.3 H, Segmented Neutrophils 75, Band Neutrophils 15 H, Absolute Lymphocytes 0.6 L, Lymphocytes 6 L, Monocytes 4, Absolute Monocytes 1.0 H, Absolute Eosinophils 0, Absolute Basophils 0.1, Platelet Estimate ADEQUATE, Normal RBC Morphology N, PUBS MCHC 33.8, Serum Alcohol 11.0 Microbiology 11/10 136 URINE ROUT: Legionella Antigen - COMP 11/10 136 URINE ROUT: Streptococcus pneumoniae Antigen (M - COMP 11/10 136 URINE ROUT: Urine Culture - RECD 11/10 34 LOWER RESP: Respiratory Culture - COLB 11/10 34 LOWER RESP: Gram Stain - COLB 11/09 1936 BLOOD: Blood Culture - RECD 11/09 1929 BLOOD: Blood Culture - RECD 11/09 1709 NASOPHARYN: Influenza Virus A & B Rapid Smear - COMP Assessment/Plan Assessment: Patient is 71-year-old female, active smoker with past medical history of COPD on 2.5 L nocturnal O2, alcohol dependence with h/o DT's, alcoholic cardiomyopathy and pancreatitis, HTN, hypercalcemia on cinacalcet, hypothyroidism, B12 deficiency with peripheral neuropathy, presented with chief complaint of gradual worsening of dyspnea on exertion with increasing use of inhalers and daytime use of oxygen. Patient also reported cough associated with chest tightness and wheezing. Patient did not report of any sick contacts at home. She was last admitted to [facility] for COPD exacerbation in September 2015. Patient drinks alcohol every day 2-3 glass, her last drink was yesterday 1 PM. Labs and vitals as above Acute on chronic hypoxic respiratory failure Acute hypoxic respiratory failure could be secondary to her underlying pneumonia in right middle lobe and COPD exacerbation. Pulmonary embolism was ruled out by CTA. Blood cultures into 2 and sputum culture were sent with follow-up Will follow-up urine Legionella and strep antigen Patient is empirically started on IV ceftriaxone and azithro for community- acquired pneumonia Will continue IV steroids 60 mg every 6 Patient is counseled over smoking cessation Pulmonary consult placed with Dr. Sullivan [facility] nebs as needed Evaluate for ACS Patient reported of chest tightness on admission, her troponins have been negative Patient remains tachycardic We'll continue to monitor Pancreatitis Patient reports ofepigastric pain, nausea, CT scan done on 11/09/16 suggestive of acute pancreatitis in the setting of alcohol use Lipase and amylase elevated to 4525 and 744 respectively Patient was kept nothing by mouth and started on Ringer's lactate We'll continue to monitor Hypomagnesemia Probably second to alcohol use, Magnesium was repleted aggressively, this morning when patient is a 2.5 we'll continue to monitor Alcohol detox Patient has been drinking 2-3 glasses of alcohol every day, her CIWA scores have been 6-7. She will be continued on when necessary Ativan and banana bag Folic acid, thiamine, and multivitamin switched to by mouth once patient starts eating Patient's vitamin B12 and folate elevated to greater than thousand and greater than 20 respectively Hypercalcemia Will continue her Cinacalcet. Hyperglycemia. Patient is kept on fingersticks, this morning her blood sugar was 288 Her HbA1c was 6 on 10/02/15 Will follow the repeat values Will start patient on a low-dose NovoLog sliding scale as patient is on steroids and needs coverage. Elevated total bilirubin and AST will continue to monitor DVT ppx Lovenox Full code. Problem List: 1. Alcohol dependence 2. COPD 3. Transaminitis 4. Elevated bilirubin 5. Acute pancreatitis Pain Ratin Pain Location: Abdomen Pain Goal: Pain 4 or less Pain Plan: Morphine when necessary for abdominal pain every 6 Tomorrow's Labs & Rationales: cbc bep DIANNA SANDERSON MD 11/10/16 1340: Attending MD Review Statement Attending Statement Attending MD Statement: examined this patient, discuss w/resident/PA/PRICE CLERK, agreed w/resident/PA/PRICE CLERK, reviewed EMR data (avail) Attending Assessment/Plan: 71F PMH COPD on 2.5 L nocturnal O2, alcohol dependence with h/o DT's, alcoholic cardiomyopathy and pancreatitis, HTN, hypercalcemia on cinacalcet, hypothyroidism, B12 deficiency with peripheral neuropathy admitted with dyspnea, epigastric pain, hypoxia, wheezing in the setting of RML pneumonia and acute pancreatitis. Found to be severely hypomagnesemic on admission, now normal following repletion. No complaints today. Vitals stable. WBC improving. No evidence of alcohol withdrawal at this time. 1. RML pneumonia 2. Acute exacerbation of COPD 3. Acute on chronic hypoxemic respiratory failure 4. Acute pancreatitis 5. Alcohol abuse 6. Hypomagnesemia 7. Hypercalcemia Plan - Continue on telemetry - Continue Solumedrol, will taper tomorrow to 40mg q6h - TRC/nebulizer treatments - NPO - IV hydration - Morphine for pain control - Continue Ceftriaxone and Azithromycin - Follow cultures - Ativan PRN per CIWA, monitor for signs of withdrawal - Recheck Mg, BEP tomorrow - Obtain records for etiology of hypercalcemia - Continue home medications - DVT PPx
[2016-11-10 08:17] LABS: ABSOLUTE BASOPHIL COUNT 0 /CUMM (0.0-0.2); ABSOLUTE EOSINOPHIL COUNT 0 /CUMM (0.0-0.7); ABSOLUTE LYMPH COUNT 0.9 /CUMM (1.2-3.4); BASOPHIL % 0 % (0.0-2.0); MEAN CORPUSCULAR VOLUME 106.1 FL (81.0-99.0); RBC DISTRIBUTION WIDTH 14.1 % (11.5-14.5)
[2016-11-10 09:30] LABS: ABSOLUTE GRANULOCYTE CT 15.1 /CUMM (1.4-6.5); EOSINOPHIL % 0 % (0-5); GRANULOCYTE % 88.9 % (42.2-75.2); MEAN CORPUSCULAR HGB 35.2 PG (27.0-31.0); MEAN CORPUSCULAR HGB CONC 33.2 G/DL (33.0-37.0); MEAN PLATELET VOLUME 9.6 FL (7.4-10.4); PLATELET COUNT 135 /CUMM (130-400); RED BLOOD CELL CT 3.88 /CUMM (4.20-5.40)
[2016-11-10 09:52] LABS: HEMATOCRIT 41.2 % (37-47)
--- NOTE | 2016-11-10 11:35 | NUR ---
LATE ENTRY 0736 PT BLOOD SUGAR WAS 288 AND NO SLIDING SCALE ORDERED. 0800 PERICO AWARE AND WILL LOOK INTO IT. WILL CONTINUE TO MONITOR PT.
--- NOTE | 2016-11-10 13:47 | Cons- Pulmonary ---
General Information and HPI Consulting Request Date of Consult: 11/10/16 Requested By: med team History of Present Illness: Ms. 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 Patient reports that for the past 1 month, her baseline shortness of breath has worsened and has required to increase her nebulizer usage. However, for the past few days her shortness of breath has progressed to require day-time usage of her oxygen and even more frequent nebulizer treatments. This shortness of breath is constant, worse with exertion and talking and has resulted in decreased exercise tolerance. Associated symptoms include wheezing, cough minimally productive of sputum, lethargy, anxiety, decreased mobility, and this substernal, 8/10 chest pressure that is intermittent and occasionally radiates to the back. This chest pain is not relieved with rest, slightly improved from an 8/10 to a 6/10 with tylenol, and always occurs when her shortness of breath is severe. Patient also endorses new onset nausea and abdominal pain which has caused her to limit her PO intake. Patient denies fever , chills, sore throat, recent illness/ear/throat infection, orthopnea, abdominal pain, vomiting. Social history is significant for tobacco abuse with use of 4-5 cigarettes per day; patient has been smoking for 55 years and is currently in the process of cutting back. She also drinks 2-3 vodka servings a day and has so for years. She denies illicit drug use. Patient lives at home with her dog and uses supplemental oxygen. Review of Systems Constitutional: Reports: diaphoresis, malaise. Denies: chills, fever, unexplained weight loss. EENTM: Denies: visual changes, nasal congestion, throat pain. Cardiovascular: Reports: chest pain. Denies: orthopena, palpitations, peripheral edema. Respiratory: Reports: cough, short of breath, wheezing. Denies: orthopnea, sputum production , stridor. GI: Reports: see HPI, nausea. Denies: abdominal pain, vomiting. Genitourinary: Denies: dysuria, hematuria. Musculoskeletal: Denies: back pain. Skin: Denies: rash. Neurological/Psychological: Reports: anxiety. Denies: confusion, headache. Hematologic/Endocrine: Denies: bruising, bleeding. Immunologic/Allergic: Denies: splenectomy. All Other Systems: Reviewed and Negative Allergies/Medications Allergies: Coded Allergies: NO KNOWN ALLERGIES (06/08/12) Home Med List: Albuterol Sulfate 2.5 MG/3 ML (0.083 %) VIAL.NEB 1 Vial INH/ARIEL BID RESPIRATORY (Reported) Albuterol Sulfate (Proair Hfa) 90 MCG HFA.AER.AD 2 PUF INH PRN RESPIRATORY ( Reported) Cholecalciferol (Vitamin D3) (Vitamin D) 2,000 UNIT CAPSULE 1 CAP PO DAILY SUPPLEMENT (Reported) Cinacalcet HCl (Sensipar) 30 MG TABLET 1 TAB PO DAILY UNKNOWN (Reported) Cyanocobalamin (Vitamin B-12) 1,000 MCG TABLET 1 TAB PO DAILY SUPPLEMENT ( Reported) Fenofibrate 160 MG TABLET 1 TAB PO QPM TRIGLYCERIDES/CHOLESTEROL (Reported) Fluticasone/Salmeterol (Advair 250-50 Diskus) 250 MCG-50 MCG/DOSE BLST.W.DEV 1 PUF INH BID RESPIRATORY (Reported) Furosemide (Lasix) 20 MG TABLET 1 TAB PO DAILY Heart (Reported) Levothyroxine Sodium 50 MCG TABLET 1 TAB PO M,T,W,TH,FR THYROID (Reported) Levothyroxine Sodium (Levoxyl) 75 MCG TABLET 1 TAB PO SA,BAEZA THYROID (Reported ) Loratadine (Claritin) (Unknown Strength) TABLET (Unknown Dose) PO DAILY ALLERGIES/RESPIRATORY (Reported) Mirtazapine (Remeron) 15 MG TAB.RAPDIS 0.5 TAB PO QHS UNKNOWN (Reported) Multivitamin,Ther and Minerals (Multivitamins With Minerals Hp) 1 EACH CAPSULE 1 CAP PO DAILY SUPPLEMENT (Reported) Omeprazole 40 MG CAPSULE.DR 1 CAP PO DAILY GI (Reported) Potassium Chloride 20 MEQ TAB.ER.PRT 1 TAB PO DAILY SUPPLEMENT (Reported) Tiotropium [place] (Spiriva) 18 MCG CAP.W.DEV 1 CAP INH DAILY RESPIRATORY ( Reported) Vitamin B Complex (B Complete) 1 EACH TABLET 1 TAB PO DAILY SUPPLEMENT ( Reported) Vitamin E Mixed (Vitamin E) 400 UNIT CAPSULE 1 CAP PO DAILY SUPPLEMENT ( Reported) Review of Systems Review of Systems Constitutional: Reports: see HPI. Past History Travel History Traveled to [place] past 21 day No Medical History Blood Transfusion Hx: No Neurological: NONE (peripheral neuropathy from alc) EENT: NONE Cardiovascular: hypertension, hyperlipidemia (alcoholic cardiomyopathy), PERIPHERAL EDEMA Respiratory: asthma, COPD Gastrointestinal: alcoholic hepatitis, pancreatitis Hepatic: jaundice, fatty liver Renal: mild renal insufficiency Musculoskeletal: degen joint disease Psychiatric: substance abuse (ETOH) Endocrine: hypothyroidism Blood Disorders: coagulopathy Cancer(s): NONE DIE CASTER/Reproductive: NONE Surgical History Surgical History: hysterectomy, APPENDECTOMY Family History Relations & Conditions If Any: FATHER FH ischemic heart disease MOTHER FH ischemic heart disease Psychosocial History Where Do You Live? Home Who Do You Live With? alone Services at Home: Home Health Aide (3L n.c.), Oxygen Primary Language: Bulgarian Smoking Status: Current Everyday Smoker ETOH Use: heavy use Illicit Drug Use: denies illicit drug use Living Will? unknown Power of Dot [employer] Architect/HCP? unknown Functional Ability ADLs Independent: dressing, eating, toileting, bathing. Ambulation: independent IADLs Independent: shopping, housework, finances, food prep, telephone, transportation , medication admin. Exam & Diagnostic Data Last 24 Hrs of Vital Signs/I&O Vital Signs Date Time Temp Pulse Resp B/P Pulse O2 O2 Flow FiO2 Ox Delivery Rate 11/10 1301 98.3 105 20 130/60 94 Nasal 3.0L Cannula 11/10 1200 98.3 105 20 13/60 11/10 1000 99.2 106 20 150/70 11/10 0800 Nasal 3.0L Cannula 11/10 0800 99.2 106 20 150/70 11/10 0700 99.2 106 20 150/70 97 Nasal 3.0L Cannula 11/10 0600 110 11/10 0400 98.9 108 20 132/80 11/10 0200 108 11/10 0000 107 11/09 2234 97 Nasal 3.0L Cannula 11/09 2228 97.8 112 28 142/78 97 Nasal 3.0L Cannula 11/10 2055 99.2 115 20 146/88 97 Nasal 3.0L Cannula 11/09 1906 98.6 116 20 135/80 96 Nasal 3.0L Cannula 11/09 1715 96 11/09 1653 98.3 125 20 131/69 98 Aerosol Mask Intake & Output 11/10 1600 11/10 0800 11/10 0000 Intake Total 1100 0 Output Total 350 Balance 750 0 Intake, IV 1050 Intake, Oral 50 0 Number 0 Bowel Movements Output, Urine 350 Patient 140 lb 140 lb Weight SIGNIFICANT DATA CT of the chest reviewed no pulmonary embolism severe emphysema atelectasis no pneumonia fatty liver evidence suggestive of pancreatitis adrenal adenoma Right middle lobe mild infiltrate BUN/creatinine reviewed Baseline bicarbonate is 38 amylase lipase were elevated patient has had persistent hyper calcemic area followed by endocrine last PTH was 32 white count elevated high MCV. ABG did not reveal hypercarbia Last 48 Hrs of Labs/Pablo: Laboratory Tests 11/10/16 0730: Anion Gap 7, Estimated GFR > 60, BUN/Creatinine Ratio 22.5, Hemoglobin A1c 5.6, Magnesium 2.5 H, Troponin I 0.02, Vitamin B12 > 1000 H, Folate > 20.0 H, CBC w Diff MAN DIFF ORDERED, RBC 3.88 L, MCV 106.1 H, MCH 35.2 H, RDW 14.1, MPV 9.6, Gran % 88.9 H, Lymphocytes % 5.3 L, Monocytes % 5.8, Eosinophils % 0, Basophils % 0 L, Absolute Granulocytes 15.1 H, Segmented Neutrophils 84 H, Band Neutrophils 7 H, Absolute Lymphocytes 0.9 L, Lymphocytes 6 L, Monocytes 3, Absolute Monocytes 1.0 H, Absolute Eosinophils 0, Absolute Basophils 0, Platelet Estimate ADEQUATE, Normocytic RBCs VERIFIED, Normochromic RBCs VERIFIED , PUBS MCHC 33.2 11/10/16 0137: Urinalysis LIGHT H, Urine Color YEL, Urine Clarity CLDY H, Urine pH 6.5, Ur Specific [place] <= 1.005, Urine Protein TRACE H, Urine Ketones 15 H, Urine Nitrite NEG, Urine Bilirubin NEG, Urine Urobilinogen 0.2, Ur Leukocyte Esterase NEG, Ur Microscopic SEDIMENT EXAMINED, Urine RBC 3-5, Urine WBC 1-3 H, Ur Epithelial Cells MANY H, Urine Bacteria FEW H, Urine Mucus FEW, Urine Hemoglobin SMALL H, Urine Glucose 500 H 11/09/166: Troponin I 0.04, Amylase 744 H, Lipase 4525 H 11/09/162054: pH 7.46 H, pCO2 33 L, pO2 85, HCO3 23, ABG O2 Sat (Measured) 94.0 L, P-50 ( Temp Corrected) Y, Carboxyhemoglobin 1.9, O2 Concentration % 3L, Temperature 98.9, O2 Delivery Method N/C, Phlebotomy Draw Site RIGHT RADIAL 11/09/16 1701: Anion Gap 14, Estimated GFR > 60, BUN/Creatinine Ratio 21.1, Glucose 281 H, Calcium 11.0 H, Magnesium 0.9 *L, Total Bilirubin 1.5 H, AST 76 H, ALT 50, Alkaline Phosphatase 60, Troponin I 0.03, Oev-L-Fcdmrptidvn Pept 2430 H, Total Protein 7.1, Albumin 4.4, Globulin 2.7, Albumin/Globulin Ratio 1.6, CBC w Diff MAN DIFF ORDERED, RBC 4.75, MCV 105.1 H, MCH 35.5 H, RDW 13.7, MPV 9.0, Gran % 91.9 H, Lymphocytes % 2.9 L, Monocytes % 4.9, Eosinophils % 0, Basophils % 0.3 , Absolute Granulocytes 18.3 H, Segmented Neutrophils 75, Band Neutrophils 15 H, Absolute Lymphocytes 0.6 L, Lymphocytes 6 L, Monocytes 4, Absolute Monocytes 1.0 H, Absolute Eosinophils 0, Absolute Basophils 0.1, Platelet Estimate ADEQUATE, Normal RBC Morphology N, PUBS MCHC 33.8, Serum Alcohol 11.0 Microbiology 11/10 136 URINE ROUT: Legionella Antigen - COMP 11/10 136 URINE ROUT: Streptococcus pneumoniae Antigen (M - COMP 11/09 171 NASOPHARYN: Influenza Virus A & B Rapid Smear - COMP Assessment/Plan Impression/Plan: Physical Exam General Appearance Alert, Oriented X3, Cooperative, Moderate Distress Skin No Rashes, No Significant Lesion HEENT Atraumatic, PERRLA, EOMI, Mucous Membr. moist/pink Neck Supple, +2 Carotid Pulse wo Bruit Lymphatic Cervical nl Cardiovascular Tachycarid with normal S1/S2 Lungs Diffuse wheezing in all lung bridges with decreased air entry bilaterally. Decreased basal breath sounds. Abdomen Normal Bowel Sounds, Soft, Petechia noted on abdomen., tenderness to palpation of epigastric region Neurological Normal Speech, Normal Tone Extremities No Clubbing, No Cyanosis, No Edema, Normal Pulses, No Tenderness/ Swelling Vascular Pulses Symmetrical This is a 71-year-old lady with history of significant smoking, severe COPD with asthmatic component, recurrent respiratory failure with COPD exacerbation, more than [id number] smoking history, FEV1 of 0.8 L on 2-3 L nasal cannula at home usually, still ongoing smoking, previous history of significant alcoholism now has been drinking, depression, hypothyroidism on adequate supplementation, hypertension, previous liver failure with alcoholic hepatitis which seems to have resolved, Now with abd pain and wheezing * Significant acute pancreatitis with ongoing drinking * Severe COPD with acute exacerbation of COPD * Right middle lobe infiltrate unlikely to be pneumonia but cannot rule out * Significant alcoholism high risk for withdrawal * Sinus tachycardia * Sig hypercalcemia most likely related to multiple issues patient has been on cinacalcet * Ongoing nicotine use * Hypothyroidism on appropriate supplementation * Hyperlipidemia * Previous history of liver failure * Immunosuppressed state due to alcoholism * Significant fatty liver * Glucose intolerance and B12 deficiency * Peripheral neuropathy. * Previous nonischemic heart disease with previous coronary angiogram which was unremarkable but patient does have cardiomyopathy probably related to previous alcoholism which is mild, watch for chf RECOMMENDATION * Continue nebulizer therapy with ipratropium and albuterol every 6 hours * Sugar control * Can discontinue azithromycin and continue ceftriaxone for now, Change to po prednisone 50 mg from am * Intravenous fluids and watch her calcium, and watch for pulm edema * Check vitamin D * Continue Lovenox * Continue her Levoxyl * Keep the head of bed elevated * Sputum culture if any * Watch for withdrawal patient is high risk for alcohol withdrawal transferred to the intensive care units if she gets worse * If she becomes. Hypersomnic due to Ativan patient might require noninvasive ventilation * Aggressive fluid resuscitation to continue for 24 hours pancreatitis * We will follow Consult Acknowledgment - Thank you for your consult request.
[2016-11-11 00:13] VITALS: BP 134/70
--- NOTE | 2016-11-11 07:51 | PN- Housestaff ---
PERICO STACK 11/11/16 0751: Subjective Follow-up For: Acute pancreatitis Right middle lobe pneumonia Hypomagnesemia Prediabetic Subjective: Patient looks winded again this morning. She does not like bedpain and wants to use commode instead. Blood sugars continue to be elevated this morning it is 247 however she continues to be nothing by mouth Novolin sliding scale. Patient is saturating 99% on 3 L nasal cannula will try to taper as tolerated. She remains afebrile and vitals are stable. Review of Systems Constitutional: Reports: see HPI. Objective Last 24 Hrs of Vital Signs/I&O Vital Signs Date Time Temp Pulse Resp B/P Pulse O2 O2 Flow FiO2 Ox Delivery Rate 11/11 0013 98.7 95 20 134/70 99 Nasal 3.0L Cannula 11/11 0000 96 11/10 1800 97.6 97 22 124/62 11/10 1630 95 Nasal 3.0L Cannula 11/10 1607 97.6 96 20 124/62 96 Nasal 3.0L Cannula 11/10 1600 97.6 96 20 124/62 11/10 1452 Nasal 3.0L Cannula 11/10 1400 98.3 105 20 120/60 11/10 1301 98.3 105 20 130/60 94 Nasal 3.0L Cannula 11/10 1200 98.3 105 20 13/60 11/10 1000 99.2 106 20 150/70 11/10 0800 Nasal 3.0L Cannula 11/10 0800 99.2 106 20 150/70 Intake & Output 11/11 0800 11/11 0000 11/10 1600 Intake Total 174 765 2430 Output Total 100 175 Balance 888 068 7282 Intake, IV 750 1245 Intake, Oral 100 40 120 Output, Urine 100 175 Patient 63.503 kg Weight Physical Exam General Appearance: Alert, Oriented X3, Cooperative, Mild Distress Skin: No Rashes HEENT: Atraumatic Neck: Supple Cardiovascular: Regular Rate, Normal S1, Normal S2 Lungs: b/l expiratory wheezes Abdomen: Normal Bowel Sounds, Soft, No Tenderness Current Medications: Current Medications Sig/Liz Start time Last Medication Dose Route Stop Time Status Admin Acetaminophen 650 MG Q6P PRN 11/09 2215 AC 11/11 PO 0618 Albuterol Sulfate 3 ML EVERY 4 HRS/AWAKE 11/10 1200 AC 11/11 INH 0811 Azithromycin 500 MG DAILY 11/10 1000 DC 11/10 Sodium Chloride 250 ML IV 0926 Ceftriaxone Sodium 1,000 MG DAILY 11/10 1000 AC 11/10 IV 0925 Cinacalcet 30 MG DAILY 11/10 1000 AC 11/10 PO 0934 Cyanocobalamin/ 1 BAG DAILY 11/10 1000 AC 11/10 Thiamine/Pyridoxine IV 1141 Sodium Chloride 1,000 ML Enoxaparin Sodium 40 MG DAILY 11/10 1000 AC 11/10 SC 0934 Fenofibrate 145 MG DAILY 11/10 1000 AC 11/10 PO 0934 Insulin Aspart 0 TIDAC 11/10 1200 DC SC Insulin Human Regular 1,000 UNITS .STK-MED ONE 11/11 0025 DC IV 11/11 0026 Insulin Human Regular 0 Q6 11/10 1306 AC 11/11 SC 0619 Ipratropium [place] 2.5 ML EVERY 4 HRS/AWAKE 11/10 2000 AC 11/11 INH 0811 Lactated Ringer's 1,000 ML Q6H 11/10 0030 AC 11/11 IV 0739 Levothyroxine Sodium 0.05 MG MoTuWeThFr@0700 11/10 0700 AC 11/11 PO 0618 Levothyroxine Sodium 0.075 MG SuSa@0700 11/09 2145 AC PO Lorazepam 0 Q1P PRN 11/09 2115 AC 11/10 IV 2133 Methylprednisolone 60 MG Q8 11/09 2200 DC 11/10 IV 11/11 0400 2120 Mirtazapine 7.5 MG AT BEDTIME 11/09 2200 AC 11/10 PO 2121 Morphine Sulfate 2 MG Q6P PRN 11/10 0030 AC IV Omeprazole 40 MG DAILY AC 11/10 0700 AC 11/11 PO 0618 Prednisone 50 MG DAILY 11/11 1000 AC PO Last 24 Hrs of Lab/Pablo Results Last 24 Hrs of Labs/Mics: Laboratory Tests 11/11/16 0605: Anion Gap 9, Estimated GFR > 60, BUN/Creatinine Ratio 25.7 H, Magnesium 1.8, CBC w Diff NO MAN DIFF REQ, RBC 3.56 L, MCV 106.2 H, MCH 35.5 H, RDW 13.6, MPV 9.5, Gran % 89.9 H, Lymphocytes % 4.2 L, Monocytes % 5.9, Eosinophils % 0, Basophils % 0 L, Absolute Granulocytes 11.6 H, Absolute Lymphocytes 0.5 L, Absolute Monocytes 0.8 H, Absolute Eosinophils 0, Absolute Basophils 0, PUBS MCHC 33.4 Assessment/Plan Assessment: Patient is 71-year-old female, active smoker with past medical history of COPD on 2.5 L nocturnal O2, alcohol dependence with h/o DT's, alcoholic cardiomyopathy and pancreatitis, HTN, hypercalcemia on cinacalcet, hypothyroidism, B12 deficiency with peripheral neuropathy, presented with chief complaint of gradual worsening of dyspnea on exertion with increasing use of inhalers and daytime use of oxygen. Patient also reported cough associated with chest tightness and wheezing. Patient did not report of any sick contacts at home. She was last admitted to [facility] for COPD exacerbation in September 2015. Patient drinks alcohol every day 2-3 glass, her last drink was yesterday 1 PM. Labs and vitals as above Acute on chronic hypoxic respiratory failure Acute hypoxic respiratory failure could be secondary to her underlying pneumonia in right middle lobe and COPD exacerbation. Pulmonary embolism was ruled out by CTA. Blood cultures remain negative Will resend a sputum culture Urine Legionella and strep antigen negative per pulmonary consult service recommendations, azithromycin was DC'd and patient is continued on ceftriaxone IV steroids are switched to by mouth prednisone on 11/11/16-50 mg prednisone daily Patient is counseled over smoking cessation Pulmonary consult service on board [facility] as needed Evaluate for ACS Patient reported of chest tightness on admission, her troponins have been negative Patient remains tachycardic We'll continue to monitor Pancreatitis CT scan done on 11/09/16 suggestive of acute pancreatitis in the setting of alcohol use Lipase and amylase elevated to 4525 and 744 respectively Patient was kept nothing by mouth and started on Ringer's lactate. Will try to start clear liquid diet today if she tolerates will advance We'll continue to monitor Hypomagnesemia Probably second to alcohol use, Magnesium was repleted aggressively, we'll continue to monitor Alcohol detox Patient has been drinking 2-3 glasses of alcohol every day, her CIWA scores have been 6-7. She will be continued on when necessary Ativan and she got 1 banana bag Folic acid, thiamine, and multivitamin switched to by mouth once patient starts eating Patient's vitamin B12 and folate elevated to greater than thousand and greater than 20 respectively Hypercalcemia Will continue her Cinacalcet. And get old records for her cause of hypercalcemia Hyperglycemia. Patient is kept on fingersticks, this morning her blood sugar was 288 Her HbA1c was 6 on 10/02/15 Will follow the repeat values She continues on nothing by mouth Novolin sliding scale we will switch to NovoLog once she starts eating Hyperglycemia could be secondary to the steroids will continue to monitor Elevated total bilirubin and AST will continue to monitor DVT ppx Lovenox Full code. Problem List: 1. COPD 2. Alcohol dependence Pain Ratin Pain Location: Abdomen Pain Goal: Pain 4 or less Pain Plan: tylenol prn for pain Tomorrow's Labs & Rationales: cbc bep DIANNA SANDERSON MD 11/11/16 1112: Attending MD Review Statement Attending Statement Attending MD Statement: examined this patient, discuss w/resident/PA/MEDICAL RECORD SPECIALIST, agreed w/resident/PA/MEDICAL RECORD SPECIALIST, reviewed EMR data (avail) Attending Assessment/Plan: 71F PMH COPD on 2.5 L nocturnal O2, alcohol dependence with h/o DT's, alcoholic cardiomyopathy and pancreatitis, HTN, hypercalcemia on cinacalcet, hypothyroidism, B12 deficiency with peripheral neuropathy admitted with dyspnea, epigastric pain, hypoxia, wheezing in the setting of RML pneumonia and acute pancreatitis. Found to be severely hypomagnesemic on admission, now normal following repletion. Patient appears drowsy today. Still wheezing R>L, but reports breathing is significantly improved. Reports band-like epigastric pain radiating to the back , tender on palpations. Mild tremor in both hands, no tongue fasciculations. Vitals stable, labs reviewed. 1. RML pneumonia 2. Acute exacerbation of COPD 3. Acute on chronic hypoxemic respiratory failure 4. Acute pancreatitis 5. Alcohol abuse 6. Hypomagnesemia 7. Hypercalcemia Plan - Continue on telemetry - Continue Prednisone - TRC/nebulizer treatments - Advance diet as tolerated - IV hydration - Morphine for pain control - Continue Ceftriaxone - Follow cultures - Ativan PRN per CIWA, monitor for signs of withdrawal - Recheck Mg, BEP tomorrow - Continue home medications - DVT PPx
[2016-11-11 07:52] LABS: ABSOLUTE BASOPHIL COUNT 0 /CUMM (0.0-0.2); ABSOLUTE EOSINOPHIL COUNT 0 /CUMM (0.0-0.7); ABSOLUTE GRANULOCYTE CT 11.6 /CUMM (1.4-6.5); ABSOLUTE LYMPH COUNT 0.5 /CUMM (1.2-3.4); ABSOLUTE MONOCYTE COUNT 0.8 /CUMM (0.10-0.60); BASOPHIL % 0 % (0.0-2.0); EOSINOPHIL % 0 % (0-5); GRANULOCYTE % 89.9 % (42.2-75.2); HEMATOCRIT 37.8 % (37-47); MEAN CORPUSCULAR HGB 35.5 PG (27.0-31.0); MEAN CORPUSCULAR HGB CONC 33.4 G/DL (33.0-37.0); MEAN CORPUSCULAR VOLUME 106.2 FL (81.0-99.0); MEAN PLATELET VOLUME 9.5 FL (7.4-10.4); PLATELET COUNT 138 /CUMM (130-400); RBC DISTRIBUTION WIDTH 13.6 % (11.5-14.5); RED BLOOD CELL CT 3.56 /CUMM (4.20-5.40)
[2016-11-11 08:26] VITALS: BP 138/64
[2016-11-11 08:47] LABS: WHITE BLOOD CELL COUNT 12.9 /CUMM (4.8-10.8)
--- NOTE | 2016-11-11 10:37 | PN- Pulmonary ---
Subjective HPI/Critical Care Issues: Doing much better Says abdominal pain is improved Breathing seems to be improving as well Still tachypneic Wheezing persists 99% on 3 L SIGNIFICANT DATA CTA reviewed Blood work BUN/creatinine stable total bilirubin 1.5 white count 12.9 calcium was high yesterday. Cultures unremarkable Objective Current Medications: Current Medications Sig/Liz Start time Last Medication Dose Route Stop Time Status Admin Acetaminophen 650 MG Q6P PRN 11/09 2215 AC 11/11 PO 0618 Albuterol Sulfate 3 ML EVERY 4 HRS/AWAKE 11/10 1200 AC 11/11 INH 0811 Azithromycin 500 MG DAILY 11/10 1000 DC 11/10 Sodium Chloride 250 ML IV 0926 Ceftriaxone Sodium 1,000 MG DAILY 11/10 1000 AC 11/10 IV 0925 Cinacalcet 30 MG DAILY 11/10 1000 AC 11/10 PO 0934 Cyanocobalamin/ 1 BAG DAILY 11/10 1000 AC 11/10 Thiamine/Pyridoxine IV 1141 Sodium Chloride 1,000 ML Enoxaparin Sodium 40 MG DAILY 11/10 1000 AC 11/10 SC 0934 Fenofibrate 145 MG DAILY 11/10 1000 AC 11/10 PO 0934 Insulin Aspart 0 TIDAC 11/10 1200 DC SC Insulin Human Regular 1,000 UNITS .STK-MED ONE 11/11 0025 DC IV 11/11 0026 Insulin Human Regular 0 Q6 11/10 1306 AC 11/11 SC 0619 Ipratropium [place] 2.5 ML EVERY 4 HRS/AWAKE 11/10 2000 AC 11/11 INH 0811 Lactated Ringer's 1,000 ML Q6H 11/10 0030 AC 11/11 IV 0739 Levothyroxine Sodium 0.05 MG MoTuWeThFr@0700 11/10 0700 AC 11/11 PO 0618 Levothyroxine Sodium 0.075 MG SuSa@0700 11/09 2145 AC PO Lorazepam 0 Q1P PRN 11/09 2115 AC 11/10 IV 2133 Methylprednisolone 60 MG Q8 11/09 2200 DC 11/10 IV 11/11 0400 2120 Mirtazapine 7.5 MG AT BEDTIME 11/09 2200 AC 11/10 PO 2121 Morphine Sulfate 2 MG Q6P PRN 11/10 0030 AC IV Omeprazole 40 MG DAILY AC 11/10 0700 AC 11/11 PO 0618 Prednisone 50 MG DAILY 11/11 1000 AC PO Vital Signs & I&O Last 24 Hrs of Vitals and I&O: Laboratory Tests 11/11 11/10 0605 0730 Chemistry Sodium (137 - 145 mmol/L) 137 132 L Potassium (3.5 - 5.1 mmol/L) 3.6 3.6 Chloride (98 - 107 mmol/L) 105 97 L Carbon Dioxide (22 - 30 mmol/L) 24 28 Anion Gap (5 - 16) 9 7 BUN (7 - 17 mg/dL) 18 H 18 H Creatinine (0.5 - 1.0 mg/dL) 0.7 0.8 Estimated GFR (>60 ml/min) > 60 > 60 BUN/Creatinine Ratio (7 - 25 %) 25.7 H 22.5 Hemoglobin A1c (4.2 - 5.8 %) 5.6 Magnesium (1.6 - 2.3 mg/dL) 1.8 2.5 H Troponin I (< 0.11 ng/ml) 0.02 Vitamin B12 (239 - 931 pg/mL) > 1000 H Folate (2.76 - 20.0 ng/mL) > 20.0 H Hematology CBC w Diff NO MAN DIFF REQ MAN DIFF ORDERED WBC (4.8 - 10.8 /CUMM) 12.9 H 17.0 H RBC (4.20 - 5.40 /CUMM) 3.56 L 3.88 L Hgb (12.0 - 16.0 G/DL) 12.6 13.7 Hct (37 - 47 %) 37.8 41.2 MCV (81.0 - 99.0 FL) 106.2 H 106.1 H MCH (27.0 - 31.0 PG) 35.5 H 35.2 H RDW (11.5 - 14.5 %) 13.6 14.1 Plt Count (130 - 400 /CUMM) 138 135 MPV (7.4 - 10.4 FL) 9.5 9.6 Gran % (42.2 - 75.2 %) 89.9 H 88.9 H Lymphocytes % (20.5 - 51.1 %) 4.2 L 5.3 L Monocytes % (1.7 - 9.3 %) 5.9 5.8 Eosinophils % (0 - 5 %) 0 0 Basophils % (0.0 - 2.0 %) 0 L 0 L Absolute Granulocytes (1.4 - 6.5 /CUMM) 11.6 H 15.1 H Segmented Neutrophils (42.2 - 75.2 %) 84 H Band Neutrophils (0.0 - 5.0 %) 7 H Absolute Lymphocytes (1.2 - 3.4 /CUMM) 0.5 L 0.9 L Lymphocytes (20.5 - 51.1 %) 6 L Monocytes (1.7 - 9.3 %) 3 Absolute Monocytes (0.10 - 0.60 /CUMM) 0.8 H 1.0 H Absolute Eosinophils (0.0 - 0.7 /CUMM) 0 0 Absolute Basophils (0.0 - 0.2 /CUMM) 0 0 Platelet Estimate (ADEQUATE) ADEQUATE Normocytic RBCs VERIFIED Normochromic RBCs VERIFIED PUBS MCHC (33.0 - 37.0 G/DL) 33.4 33.2 11/10 11/09 0137 2226 Chemistry Troponin I (< 0.11 ng/ml) 0.04 Amylase (30 - 110 U/L) 744 H Lipase (23 - 300 U/L) 4525 H Urines Urinalysis LIGHT H Urine Color (YEL,AMB,STR) YEL Urine Clarity (CLEAR) CLDY H Urine pH (5.0 - 8.0) 6.5 Ur Specific [place] (1.001 - 1.035) <= 1.005 Urine Protein (NEG,<30 MG/DL) TRACE H Urine Ketones (NEG) 15 H Urine Nitrite (NEG) NEG Urine Bilirubin (NEG) NEG Urine Urobilinogen (0.1 - 1.0 EU/dl) 0.2 Ur Leukocyte Esterase (NEG) NEG Ur Microscopic SEDIMENT EXAMINED Urine RBC (0 - 5 /HPF) 3-5 Urine WBC (0 - 2 /HPF) 1-3 H Ur Epithelial Cells (NONE,FEW) MANY H Urine Bacteria (NEG/NONE) FEW H Urine Mucus (FEW,NONE) FEW Urine Hemoglobin (NEG) SMALL H Urine Glucose (N MG/DL) 500 H 11/09 1701 Blood Gas pH (7.35 - 7.45 PH) 7.46 H pCO2 (35 - 45 TORR) 33 L pO2 (80 - 100 TORR) 85 HCO3 (21 - 28 MEQ/L) 23 ABG O2 Sat (Measured) (>96.0 %) 94.0 L P-50 (Temp Corrected) Y Carboxyhemoglobin (1.5 - 5.0 %) 1.9 O2 Concentration % 3L Temperature (97.0 - 100.0 FARH) 98.9 O2 Delivery Method N/C Chemistry Sodium (137 - 145 mmol/L) 135 L Potassium (3.5 - 5.1 mmol/L) 4.1 Chloride (98 - 107 mmol/L) 97 L Carbon Dioxide (22 - 30 mmol/L) 23 Anion Gap (5 - 16) 14 BUN (7 - 17 mg/dL) 19 H Creatinine (0.5 - 1.0 mg/dL) 0.9 Estimated GFR (>60 ml/min) > 60 BUN/Creatinine Ratio (7 - 25 %) 21.1 Glucose (65 - 99 mg/dL) 281 H Calcium (8.4 - 10.2 mg/dL) 11.0 H Magnesium (1.6 - 2.3 mg/dL) 0.9 *L Total Bilirubin (0.2 - 1.3 mg/dL) 1.5 H AST (14 - 36 U/L) 76 H ALT (9 - 52 U/L) 50 Alkaline Phosphatase (<127 U/L) 60 Troponin I (< 0.11 ng/ml) 0.03 [id number] Pept (<125 pg/mL) 2430 H Total Protein (6.3 - 8.2 g/dL) 7.1 Albumin (3.5 - 5.0 g/dL) 4.4 Globulin (1.9 - 4.2 gm/dL) 2.7 Albumin/Globulin Ratio (1.1 - 2.2 %) 1.6 Hematology CBC w Diff MAN DIFF ORDERED WBC (4.8 - 10.8 /CUMM) 19.9 H RBC (4.20 - 5.40 /CUMM) 4.75 Hgb (12.0 - 16.0 G/DL) 16.9 H Hct (37 - 47 %) 49.9 H MCV (81.0 - 99.0 FL) 105.1 H MCH (27.0 - 31.0 PG) 35.5 H RDW (11.5 - 14.5 %) 13.7 Plt Count (130 - 400 /CUMM) 171 MPV (7.4 - 10.4 FL) 9.0 Gran % (42.2 - 75.2 %) 91.9 H Lymphocytes % (20.5 - 51.1 %) 2.9 L Monocytes % (1.7 - 9.3 %) 4.9 Eosinophils % (0 - 5 %) 0 Basophils % (0.0 - 2.0 %) 0.3 Absolute Granulocytes (1.4 - 6.5 /CUMM) 18.3 H Segmented Neutrophils (42.2 - 75.2 %) 75 Band Neutrophils (0.0 - 5.0 %) 15 H Absolute Lymphocytes (1.2 - 3.4 /CUMM) 0.6 L Lymphocytes (20.5 - 51.1 %) 6 L Monocytes (1.7 - 9.3 %) 4 Absolute Monocytes (0.10 - 0.60 /CUMM) 1.0 H Absolute Eosinophils (0.0 - 0.7 /CUMM) 0 Absolute Basophils (0.0 - 0.2 /CUMM) 0.1 Platelet Estimate (ADEQUATE) ADEQUATE Normal RBC Morphology N PUBS MCHC (33.0 - 37.0 G/DL) 33.8 Miscellaneous Phlebotomy Draw Site RIGHT RADIAL Toxicology Serum Alcohol (<10 MG/DL) 11.0 Microbiology Date/Time Procedure - Status Source Growth 11/10 013 Legionella Antigen - COMP URINE ROUT 11/10 013 Streptococcus pneumoniae Antigen (M - COMP URINE ROUT 11/10 013 Urine Culture - RECD URINE ROUT 11/10 0035 Respiratory Culture - COLB LOWER RESP 11/10 0035 Gram Stain - COLB LOWER RESP 11/09 193 Blood Culture - RES BLOOD 11/09 193 Blood Culture - RES BLOOD 11/09 1710 Influenza Virus A & B Rapid Smear - COMP NASOPHARYN Vital Signs Date Time Temp Pulse Resp B/P Pulse O2 O2 Flow FiO2 Ox Delivery Rate 11/11 0826 98.1 83 17 138/64 97 Nasal 3.0L Cannula 11/11 0814 96 Nasal 3.0L Cannula 11/11 0013 98.7 95 20 134/70 99 Nasal 3.0L Cannula 11/11 0000 96 11/10 1800 97.6 97 22 124/62 11/10 1630 95 Nasal 3.0L Cannula 11/10 1607 97.6 96 20 124/62 96 Nasal 3.0L Cannula 11/10 1600 97.6 96 20 124/62 11/10 1452 Nasal 3.0L Cannula 11/10 1400 98.3 105 20 120/60 11/10 1301 98.3 105 20 130/60 94 Nasal 3.0L Cannula 11/10 1200 98.3 105 20 1360 Intake & Output 11/11 1600 11/11 0800 11/11 0000 Intake Total 100 790 Output Total 100 Balance 100 690 Intake, IV 750 Intake, Oral 100 40 Output, Urine 100 Impression/Plan Impression/Plan Impression/Plan: Physical Exam General Appearance Alert, Oriented X3, Cooperative, Moderate Distress Skin No Rashes, No Significant Lesion HEENT Atraumatic, PERRLA, EOMI, Mucous Membr. moist/pink Neck Supple, +2 Carotid Pulse wo Bruit Lymphatic Cervical nl Cardiovascular Tachycarid with normal S1/S2 Lungs Diffuse wheezing in all lung bridges with decreased air entry bilaterally. Decreased basal breath sounds. Abdomen Normal Bowel Sounds, Soft, Petechia noted on abdomen., tenderness to palpation of epigastric region Neurological Normal Speech, Normal Tone Extremities No Clubbing, No Cyanosis, No Edema, Normal Pulses, No Tenderness/ Swelling Vascular Pulses Symmetrical This is a 71-year-old lady with history of significant smoking, severe COPD with asthmatic component, recurrent respiratory failure with COPD exacerbation, more than [id number]-djdy smoking history, FEV1 of 0.8 L on 2-3 L nasal cannula at home usually, still ongoing smoking, previous history of significant alcoholism now has been drinking, depression, hypothyroidism on adequate supplementation, hypertension, previous liver failure with alcoholic hepatitis which seems to have resolved, Now with abd pain and wheezing * Significant acute pancreatitis with ongoing drinking * Severe COPD with acute exacerbation of COPD * Right middle lobe infiltrate unlikely to be pneumonia but cannot rule out * Significant alcoholism high risk for withdrawal * Sinus tachycardia * Sig hypercalcemia most likely related to multiple issues patient has been on cinacalcet * Ongoing nicotine use * Hypothyroidism on appropriate supplementation * Hyperlipidemia * Previous history of liver failure * Immunosuppressed state due to alcoholism * Significant fatty liver * Glucose intolerance and B12 deficiency * Peripheral neuropathy. * Previous nonischemic heart disease with previous coronary angiogram which was unremarkable but patient does have cardiomyopathy probably related to previous alcoholism which is mild, watch for chf RECOMMENDATION * Continue nebulizer therapy with ipratropium and albuterol every 6 hours * Sugar control * Should start on a low cholesterol diet, check triglyceride. * By mouth prednisone and can change her antibiotics to by mouth Ceftin 500 twice a day * Continue IV fluids and discontinue after this evening. Recheck calcium, magnesium and potassium. * Continue Lovenox * Continue her Levoxyl * Keep the head of bed elevated * Watch for withdrawal patient is high risk for alcohol withdrawal transferred to the intensive care units if she gets worse * If she becomes. Hypersomnic due to Ativan patient might require noninvasive ventilation * We will follow
[2016-11-11 16:26] VITALS: BP 156/93
[2016-11-11 22:48] VITALS: BP 138/78
[2016-11-12] VITALS (13 sets, daily range): BP systolic 80–170; BP diastolic 00–105
--- NOTE | 2016-11-12 02:53 | Event Note ---
Event Note Event Note: Notified by nursing staff that patient was extremely agitated and respiratory status suboptimal. On evaluation of patient, she was diaphoretic, pale, agitated and minimally responsive to sternal rub. Vital signs showed a SBP 140s and HR 140s with oxygen saturation occasionally dropping to the mid 80s. Stat CXR, EKG, and labs were sent. ABG ordered. Patient placed on venti mask, ar and restraints. 5 mg IV labetolol given for persistent tachycardia. Due to clinical decline, agitation and tenuous blood pressure/respiratory status, patient was transferred to the ICU for closer monitoring and treatment of alcohol withdrawl with respiratory decompensation. Patient was placed on BiPAP on arrival to ICU. She remained lethargic. CXR suggestive of fluid overload and pulmonary edema. 20 mg IV lasix given, however patient's blood pressure is borderline and we were unable to give a large dose at this time. Patient was noted to drop her blood pressure to around 80 systolic. She was placed in trendelenberg and Dr. Bettye MD was contacted due to significant history of alcoholic cardiomyopathy. He suggested initiating levophed if blood pressure does not increase. After discussion with Dr. Boyle, we will monitor BP closely and if it does not trend upwards we will consider starting levophed. Above plans discussed and agreed upon with Dr. Montana MD. BP trended upwards to 90 systolic. I have made AM team aware of events.
--- NOTE | 2016-11-12 03:07 | RADIOLOGY REPORT ---
EXAMINATION: XR PORTABLE CHEST CLINICAL INFORMATION: Tachypnea. Dropping O2 saturation COMPARISON: Chest x-ray 11/09/2016 TECHNIQUE: Portable AP view of the chest was obtained. FINDINGS: There is pulmonary vascular congestion with interstitial edema. This is new since prior chest x-ray. No large pleural effusions. No dense consolidation. IMPRESSION: Congestive heart failure.
[2016-11-12 03:20] LABS: ABSOLUTE BASOPHIL COUNT 0 /CUMM (0.0-0.2); ABSOLUTE EOSINOPHIL COUNT 0.1 /CUMM (0.0-0.7); ABSOLUTE GRANULOCYTE CT 13.9 /CUMM (1.4-6.5); ABSOLUTE MONOCYTE COUNT 0.8 /CUMM (0.10-0.60); BASOPHIL % 0.1 % (0.0-2.0); EOSINOPHIL % 0.9 % (0-5); GRANULOCYTE % 87.9 % (42.2-75.2); HEMATOCRIT 39.2 % (37-47); MEAN CORPUSCULAR HGB 35.3 PG (27.0-31.0); MEAN CORPUSCULAR HGB CONC 33.1 G/DL (33.0-37.0); MEAN CORPUSCULAR VOLUME 106.6 FL (81.0-99.0); MEAN PLATELET VOLUME 8.7 FL (7.4-10.4); PLATELET COUNT 181 /CUMM (130-400); RED BLOOD CELL CT 3.67 /CUMM (4.20-5.40); WHITE BLOOD CELL COUNT 15.8 /CUMM (4.8-10.8)
--- NOTE | 2016-11-12 03:37 | NUR ---
LATE NURSING ENTRY: AT SHIFT CHANGE, 2314, THIS RN ASSESSED PT ON CIWA AND SCORED AN 8. PT AGITATED, ANXIOUS, TREMORS, CONFUSED, AND VISUALLY HALLUCINATING SEEING FLICKERING LIGHTS THAT ARENT THERE. 1MG IV ATIVEN GIVEN. VSS. SAT 94-96% ON 3LNC. WHEEZES AND FINE CRACKLES HEARD AT BASES. AT 0000, PT INCREASINGLY AGITATED. UNABLE TO REORIENT OR RELAX WITH SOFT TOUCH OR EMOTIONAL SUPPORT. ATTEMPTING TO PULL OUT IVS AND GET OOB. PULLED OUT OXYGEN MULTIPLE TIMES, DESATTING INTO 80'S% WITHOUT OXYGEN. AT 0021, BUE WRIST RESTRAINTS AND ALLYSON ORDERED. PLACED ON PATIENT AT 0045. PT AGITATED AND TRYING TO CONTINUE TO PULL OUT IV'S AND O2 TUBING. BOOSTED IN BED MULTIPLE TIMES TO GET COMFORTABLE AND ALLOW SLEEP BUT PT SCOOTED DOWN TO TRY AND GET OUT OF ALLYSON AND BED. MD GOINS AWARE. AT 0152, PT SKIN NOTICED TO BE VILLALTA AND MUCOUS MEMBRANES VILLALTA AND DUSKY. VS: 146/90, HR 120-130S, SAT 90% ON 3LNC. RESP CALLED GIVEN 1 ALBUTEROL TREATMENT. RR 28. GIVEN 1MG IV ATIVAN FOR AGITATION AND PER CIMS. MD GOINS AND MD ÁLVAREZ PAGED TO COME ASSESS PT IMMEDIATELY. 0221- BP 170/00 AND HR SINUS TACH 160S. PT AGITATED BUT SEDATED, NOT OPENING EYES WHEN DIRECTED, BUT ATTEMPTING TO RIP OUT WRIST RESTRAINTS. FLUDS STOPPED AT THIS TIME. 5MG IV LOPRESSOR PUSHED BY MD GOINS. 0230: RT UNSUCCESFUL ABG TO BOTH WRISTS, STAT CXR PERFORMED AND EKG. VS: 104/62, 117 ST, 98.8 ORAL, RR 28, SAT 78% ON 2LNC. PLACED ON 55% VENTIMASK. PER GOLDIE AUSTIN, AND BUSTER PT TO BE TRANSFERRED TO ICU ROOM 107. 0245: PT TRANSFER TO ICU WITH MEDS, BELONGING BAG, AND GLASSES. REPORT GIVEN TO TRINITY BLOUNT
--- NOTE | 2016-11-12 04:07 | Event Note ---
Event Note Event Note: Tried to get in touch with the patient's family regarding transfer to the ICU. Was not able to get in touch with them. A voicemail has been left on the home phone.
--- NOTE | 2016-11-12 04:38 | NUR ---
0300-RECEIVED PT FROM 1NO. PT AGITATED. NOT FOLLOWING COMMANDS. WRIST REST. AND ALLYSON IN PLACE. PT PLACED ON BIPAP. 1:1 SITTER ORDERED. LUNG ARMSTRONG EXP WHEEZING AND DIMINISHED. 20IVP LASIX GIVEN FOR PULM EDEMA. DODGE INSERTED. CLEAR YELLOW OUTPUT. IVF D/C. ST 100'S. BP 93/63. 0326-B/P 68/DOP. PT LETHARGIC. MD GOINS AWARE. STATES PT CAN NOT GET FLUID BOLUS D/T CARDIAC ISSUES. PT PLACED IN [place]. 0340- B/P 80/DOP. PER MD PAREDES BP OK. 0400=80/DOP.
--- NOTE | 2016-11-12 07:34 | Transfer of Care Summary ---
Hospital Course Course Hospital Course: Patient is 71-year-old female, active smoker with past medical history of COPD on 2.5 L nocturnal O2, alcohol dependence with h/o DT's, alcoholic cardiomyopathy and pancreatitis, HTN, hypercalcemia on cinacalcet, hypothyroidism, B12 deficiency with peripheral neuropathy, presented with chief complaint of gradual worsening of dyspnea on exertion with increasing use of inhalers and daytime use of oxygen. Patient also reported cough associated with chest tightness and wheezing. Patient did not report of any sick contacts at home. She was last admitted to [facility] for COPD exacerbation in September 2015. Patient drinks alcohol every day 2-3 glass, her last drink was yesterday 1 PM. Labs and vitals as above Acute on chronic hypoxic respiratory failure Acute hypoxic respiratory failure could be secondary to her underlying pneumonia in right middle lobe and COPD exacerbation. Pulmonary embolism was ruled out by CTA. Blood cultures remain negative Urine Legionella and strep antigen negative per pulmonary consult service recommendations, azithromycin and ceftriaxone were dc/d and switched to ceftin IV steroids are switched to by mouth prednisone on 11/11/16-50 mg prednisone daily Patient is counseled over smoking cessation Pulmonary consult service on board [facility] nebs as needed Evaluate for ACS Patient reported of chest tightness on admission, her troponins have been negative Patient remains tachycardic We'll continue to monitor Pancreatitis CT scan done on 11/09/16 suggestive of acute pancreatitis in the setting of alcohol use Lipase and amylase elevated to 4525 and 744 respectively Patient was kept nothing by mouth and started on Ringer's lactate. Her diet was advanced yesterday Hypomagnesemia Probably second to alcohol use, Magnesium was repleted aggressively, Alcohol detox Patient has been drinking 2-3 glasses of alcohol every day, her CIWA scores have been 6-7. She was continued on when necessary Ativan and she got 1 banana bag Folic acid, thiamine, and multivitamin switched to by mouth once patient starts eating Patient's vitamin B12 and folate elevated to greater than thousand and greater than 20 respectively Hypercalcemia Will continue her Cinacalcet. And get old records for her cause of hypercalcemia Hyperglycemia. Patient is kept on fingersticks, this morning her blood sugar was 288 Her HbA1c was 6 on 10/02/15 Will follow the repeat values She was switched from NPO to NovoLog SS once she started eating Hyperglycemia could also be secondary to the steroids will continue to monitor Assessment/Plan: as above
--- NOTE | 2016-11-12 07:53 | Cons- Cardiology ---
General Information and HPI Consulting Request Date of Consult: 11/12/16 Requested By: REGGIE HOFFMANN,HEAVEN History of Present Illness: This patient is a 71 year old female with history of hypertension, dyslipidemia, tobacco abuse and severe COPD/asthma. She also carries a history of alcohol abuse. She initially was admitted with severe shortness of breath. She also had nausea and abdominal pain. This patient was found to have acute pancreatitis, possible lung infiltrate and hypercalcemia. Today the patient was agitated and tachycardic with low BP. The patient now demonstrates a borderline rise in troponin and has an elevated WBC count. This patient is known on her most recent available echo from 2014 to have a normal EF of 55%. Allergies/Medications Allergies: Coded Allergies: NO KNOWN ALLERGIES (06/08/12) Home Med List: Albuterol Sulfate 2.5 MG/3 ML (0.083 %) VIAL.NEB 1 Vial INH/ARIEL BID RESPIRATORY (Reported) Albuterol Sulfate (Proair Hfa) 90 MCG HFA.AER.AD 2 PUF INH PRN RESPIRATORY ( Reported) Cholecalciferol (Vitamin D3) (Vitamin D) 2,000 UNIT CAPSULE 1 CAP PO DAILY SUPPLEMENT (Reported) Cinacalcet HCl (Sensipar) 30 MG TABLET 1 TAB PO DAILY UNKNOWN (Reported) Cyanocobalamin (Vitamin B-12) 1,000 MCG TABLET 1 TAB PO DAILY SUPPLEMENT ( Reported) Fenofibrate 160 MG TABLET 1 TAB PO QPM TRIGLYCERIDES/CHOLESTEROL (Reported) Fluticasone/Salmeterol (Advair 250-50 Diskus) 250 MCG-50 MCG/DOSE BLST.W.DEV 1 PUF INH BID RESPIRATORY (Reported) Furosemide (Lasix) 20 MG TABLET 1 TAB PO DAILY Heart (Reported) Levothyroxine Sodium 50 MCG TABLET 1 TAB PO M,T,W,TH,FR THYROID (Reported) Levothyroxine Sodium (Levoxyl) 75 MCG TABLET 1 TAB PO SA,BAEZA THYROID (Reported ) Loratadine (Claritin) (Unknown Strength) TABLET (Unknown Dose) PO DAILY ALLERGIES/RESPIRATORY (Reported) Mirtazapine (Remeron) 15 MG TAB.RAPDIS 0.5 TAB PO QHS UNKNOWN (Reported) Multivitamin,Ther and Minerals (Multivitamins With Minerals Hp) 1 EACH CAPSULE 1 CAP PO DAILY SUPPLEMENT (Reported) Omeprazole 40 MG CAPSULE.DR 1 CAP PO DAILY GI (Reported) Potassium Chloride 20 MEQ TAB.ER.PRT 1 TAB PO DAILY SUPPLEMENT (Reported) Tiotropium [place] (Spiriva) 18 MCG CAP.W.DEV 1 CAP INH DAILY RESPIRATORY ( Reported) Vitamin B Complex (B Complete) 1 EACH TABLET 1 TAB PO DAILY SUPPLEMENT ( Reported) Vitamin E Mixed (Vitamin E) 400 UNIT CAPSULE 1 CAP PO DAILY SUPPLEMENT ( Reported) Past History Travel History Traveled to [place] past 21 day No Medical History Blood Transfusion Hx: No Neurological: NONE (peripheral neuropathy from alc) EENT: NONE Cardiovascular: hypertension, hyperlipidemia (alcoholic cardiomyopathy), PERIPHERAL EDEMA Respiratory: asthma, COPD Gastrointestinal: alcoholic hepatitis, pancreatitis Hepatic: jaundice, fatty liver Renal: mild renal insufficiency Musculoskeletal: degen joint disease Psychiatric: substance abuse (ETOH) Endocrine: hypothyroidism Blood Disorders: coagulopathy Cancer(s): NONE PACKAGE HANDLER/Reproductive: NONE Surgical History Surgical History: hysterectomy, APPENDECTOMY Family History Relations & Conditions If Any: FATHER FH ischemic heart disease MOTHER FH ischemic heart disease Psychosocial History Where Do You Live? Home Who Do You Live With? alone Services at Home: Home Health Aide (3L n.c.), Oxygen Primary Language: Kiswahili Smoking Status: Current Everyday Smoker ETOH Use: heavy use Illicit Drug Use: denies illicit drug use Living Will? unknown Power of Supervisor Billposting/HCP? unknown Functional Ability ADLs Independent: dressing, eating, toileting, bathing. Ambulation: independent IADLs Independent: shopping, housework, finances, food prep, telephone, transportation , medication admin. ECHO Results (as available) Report: Normal LV function and valvular structure and function Exam & Diagnostic Data Vital Signs and I&O Vital Signs Date Time Temp Pulse Resp B/P Pulse O2 O2 Flow FiO2 Ox Delivery Rate 11/12 0622 98 97 11/12 0600 97.6 98 20 88/61 11/12 0424 100 99 11/12 0421 99 99 11/12 0400 97.6 102 24 80/00 11/12 0400 96 BIPAP 40% 11/12 0301 117 97 11/12 0230 98.8 117 28 104/62 78 Nasal 3.0L Cannula 11/12 0221 156 170/00 11/12 0221 160 170/00 11/12 0211 91 Nasal 3.0L Cannula 11/12 0152 120 26 146/90 90 Nasal 3.0L Cannula 11/12 0147 145 28 146/90 11/12 0056 133 11/12 0011 108 11/12 0000 96 Nasal 3.0L Cannula 11/11 2317 111 11/11 2248 98.5 91 20 138/78 97 Nasal Cannula 11/11 1626 98.2 95 20 156/93 96 Nasal Cannula 11/11 1610 95 Nasal 3.0L Cannula 11/11 1600 Nasal 3.0L Cannula 11/11 0826 98.1 83 17 138/64 97 Nasal 3.0L Cannula 11/11 0814 96 Nasal 3.0L Cannula 11/11 0800 Nasal 3.0L Cannula Intake & Output 11/12 0800 11/12 0000 11/11 1600 11/11 0800 11/11 0000 11/10 1600 Intake Total 0 1650 1080 596 388 9881 Output Total 330 3 740 100 175 Balance -330 1647 340 193 478 2491 Intake, IV 0 1050 367 226 2901 Intake, Oral 0 600 480 100 40 120 Output, Other 3 Output, Urine 330 740 100 175 Patient 140 lb Weight Physical Exam: General: WD/ WN female in NAD; intubated and sedated HEENT: NC/AT, PERRL, EOMI Neck: no JVD, no carotid bruit Heart: RRR w/o murmur Lungs: clear anteriorly Abdomen: soft, distended Extremities: no edema Diagnostic Data EKG Results sinus tachycardia Assessment/Plan Assessment/Plan * This patient likely had tachycardia that was a physiologic response to impending sepsis although withdrawal from alcohol cannot be excluded. In the setting of this tachycardia and physiologic stress she has ruled in for a small NSTEMI, likely related to increased demand. She is unlikely to have experienced an acute ruptured coronary plaque that would have led to a decrease in cardiac function and the above events. She does not need IV heparin. * Control agitation and withdrawal symptoms while maintaining adequate respiration with the help of mechanical ventilation. * Obtain an echocardiogram. * No nitrates or beta blockers for now due to her borderline BP. Continue a statin and aspirin. * Continue antibiotic therapy. Consult Acknowledgment - Thank you for your consult request.
--- NOTE | 2016-11-12 07:56 | Cons- CRCU ---
General Information and HPI Consulting Request Date of Consult: 11/12/16 Requested By: Dr Dolan Reason for Consult: Agitation, alcohol withdrawal Hypotension Respiratory distress Lethargy Source of Information: old records Exam Limitations: not alert/orientated, confusion History of Present Illness: 71-year-old female, active smoker with past medical history of COPD on 2.5 L nocturnal O2, severe emphysema with asthmatic component, alcohol dependence with h/o DT's, alcoholic cardiomyopathy and pancreatitis, HTN, hypercalcemia on cinacalcet, hypothyroidism, B12 deficiency with peripheral neuropathy, presented with chief complaint of gradual worsening of dyspnea on exertion with increasing use of inhalers and daytime use of oxygen. Patient also reported cough associated with chest tightness and wheezing. Patient did not report of any sick contacts at home. She was last admitted to [facility] for COPD exacerbation in September 2015. Pt was initially admitted for acute on chronic respiratory failure most likely secondary to pneumonia and COPD exacerbation. She was first started on ceftriaxone and azithromycin, subsequently changed to ceftin. She was initially on solumedrol IV 60 q8, subsequently changed to prednisone 50. Patient drinks alcohol every day (1-2 bottles of wine), her last drink was day prior to admission at 1 PM, and she came in with alcohol level of 11. She was maintained on CIWA. She was also found to have pancreatitis with elevated lipase and amylase, supported by image findings, for which she was hydrated with lactated ringer. She was found to be hypomagnesemic, with her magnesium aggressively repleted. On November 12, around 2am, she was noted to be extremely agitated (given 6mg IV ativan over the past 24 hours as per CIWA). She was also diaphoretic, pale, and minimally responsive to sternal rubs. Vital signs showed a SBP 140s and HR 140s with oxygen saturation occasionally dropping to the mid 80s. She was thus transferred to ICU for close monitoring. CXR consistent with flash pulmonary edema, for which 1 time 20 mg IV lasix was given, and IV fluids discontinued. Pt was maintained on BIPAP overnight. She was given 1X5mg IV metoprolol for her tachycardia. She was then hypotensive with BP 80/doppler, with BP now WNL without vasopressors support. Her troponin has increased to 0.16 most likely due to demand ischemia from tachycardia. Due to the hypotension, only a small dose of lasix was given for the pulmonary edema. Although her lactic acid was noted to be 2.5, given significant pulmonary edema, fluids were discontinued. Cap refill was normal. She currently has a sitter, on ar, bilateral UE restrains, and has a gongora. Now NPO with novolin NPO sliding scale. WBC noted to be up from 12.9 to 15.8 most likely due to steroids. Will follow up lactic acid and troponin this morning. When I examined pt this morning, she was awake and following commands (open eyes , squeeze fingers), but appears confused and not able to answer questions reliably. Thus ROS unobtainable. Allergies/Medications Allergies: Coded Allergies: NO KNOWN ALLERGIES (06/08/12) Home Med List: Albuterol Sulfate 2.5 MG/3 ML (0.083 %) VIAL.NEB 1 Vial INH/ARIEL BID RESPIRATORY (Reported) Albuterol Sulfate (Proair Hfa) 90 MCG HFA.AER.AD 2 PUF INH PRN RESPIRATORY ( Reported) Cholecalciferol (Vitamin D3) (Vitamin D) 2,000 UNIT CAPSULE 1 CAP PO DAILY SUPPLEMENT (Reported) Cinacalcet HCl (Sensipar) 30 MG TABLET 1 TAB PO DAILY UNKNOWN (Reported) Cyanocobalamin (Vitamin B-12) 1,000 MCG TABLET 1 TAB PO DAILY SUPPLEMENT ( Reported) Fenofibrate 160 MG TABLET 1 TAB PO QPM TRIGLYCERIDES/CHOLESTEROL (Reported) Fluticasone/Salmeterol (Advair 250-50 Diskus) 250 MCG-50 MCG/DOSE BLST.W.DEV 1 PUF INH BID RESPIRATORY (Reported) Furosemide (Lasix) 20 MG TABLET 1 TAB PO DAILY Heart (Reported) Levothyroxine Sodium 50 MCG TABLET 1 TAB PO M,T,W,TH,FR THYROID (Reported) Levothyroxine Sodium (Levoxyl) 75 MCG TABLET 1 TAB PO SA,BAEZA THYROID (Reported ) Loratadine (Claritin) (Unknown Strength) TABLET (Unknown Dose) PO DAILY ALLERGIES/RESPIRATORY (Reported) Mirtazapine (Remeron) 15 MG TAB.RAPDIS 0.5 TAB PO QHS UNKNOWN (Reported) Multivitamin,Ther and Minerals (Multivitamins With Minerals Hp) 1 EACH CAPSULE 1 CAP PO DAILY SUPPLEMENT (Reported) Omeprazole 40 MG CAPSULE.DR 1 CAP PO DAILY GI (Reported) Potassium Chloride 20 MEQ TAB.ER.PRT 1 TAB PO DAILY SUPPLEMENT (Reported) Tiotropium [place] (Spiriva) 18 MCG CAP.W.DEV 1 CAP INH DAILY RESPIRATORY ( Reported) Vitamin B Complex (B Complete) 1 EACH TABLET 1 TAB PO DAILY SUPPLEMENT ( Reported) Vitamin E Mixed (Vitamin E) 400 UNIT CAPSULE 1 CAP PO DAILY SUPPLEMENT ( Reported) Review of Systems Review of Systems Constitutional: Reports: see HPI (unable to obtain ROS ). Past History Travel History Traveled to [place] past 21 day No Medical History Blood Transfusion Hx: No Neurological: NONE (peripheral neuropathy from alc) EENT: NONE Cardiovascular: hypertension, hyperlipidemia (alcoholic cardiomyopathy), PERIPHERAL EDEMA Respiratory: asthma, COPD Gastrointestinal: alcoholic hepatitis, pancreatitis Hepatic: jaundice, fatty liver Renal: mild renal insufficiency Musculoskeletal: degen joint disease Psychiatric: substance abuse (ETOH) Endocrine: hypothyroidism Blood Disorders: coagulopathy Cancer(s): NONE PRODUCTION LINE SOLDERER/Reproductive: NONE Surgical History Surgical History: hysterectomy, APPENDECTOMY Family History Relations & Conditions If Any: FATHER FH ischemic heart disease MOTHER FH ischemic heart disease Psychosocial History Where Do You Live? Home Who Do You Live With? alone Services at Home: Home Health Aide (3L n.c.), Oxygen Primary Language: Armenian Smoking Status: Current Everyday Smoker ETOH Use: heavy use Illicit Drug Use: denies illicit drug use Living Will? unknown Power of Typewriter Mechanic/HCP? unknown Functional Ability ADLs Independent: dressing, eating, toileting, bathing. Ambulation: independent IADLs Independent: shopping, housework, finances, food prep, telephone, transportation , medication admin. Exam & Diagnostic Data Last 24 Hrs of Vital Signs/I&O Vital Signs Date Time Temp Pulse Resp B/P Pulse O2 O2 Flow FiO2 Ox Delivery Rate 11/12 0622 98 97 11/12 0600 97.6 98 20 88/61 11/12 0424 100 99 11/12 0421 99 99 11/12 0400 97.6 102 24 80/00 11/12 0400 96 BIPAP 40% 11/12 0301 117 97 11/12 0230 98.8 117 28 104/62 78 Nasal 3.0L Cannula 11/12 0221 156 170/00 11/12 0221 160 170/00 11/12 0211 91 Nasal 3.0L Cannula 11/12 0152 120 26 146/90 90 Nasal 3.0L Cannula 11/12 0147 145 28 146/90 11/12 0056 133 11/12 0011 108 11/12 0000 96 Nasal 3.0L Cannula 11/11 2317 111 11/11 2248 98.5 91 20 138/78 97 Nasal Cannula 11/11 1626 98.2 95 20 156/93 96 Nasal Cannula 11/11 1610 95 Nasal 3.0L Cannula 11/11 1600 Nasal 3.0L Cannula Intake & Output 11/12 1600 11/12 0800 11/12 0000 Intake Total 0 1650 Output Total 330 3 Balance -330 1647 Intake, IV 0 1050 Intake, Oral 0 600 Output, Other 3 Output, Urine 330 Physical Exam General Appearance: alert, awake, confused , mod resp distress, on bipap, then was getting breathing tx when seen the second time Head: atraumatic Eyes: Bilateral: normal appearance. Respiratory: mild exp wheeze noted Cardiovascular: regular rate/rhythm, tachycardia Peripheral Pulses: 2+ radial (R), 2+ radial (L) Gastrointestinal: normal bowel sounds, non-tender, hard (breathing with her abdomen) Extremities: no edema Neurologic/Psych: awake, alert, disoriented x 3 Skin: intact, normal color, warm , cap refill normal Last 48 Hrs of Labs/Pablo: Laboratory Tests 11/12/16 0900: Lactic Acid Pending, Troponin I Pending, PT 11.0, INR 1.05 11/12/16 0355: pH 7.38, pCO2 35, pO2 466 H, HCO3 21, ABG O2 Sat (Measured) 99.0, P-50 (Temp Corrected) Y, Carboxyhemoglobin 0 L, O2 Concentration % 100%, Temperature 97.0, Respiration Rate 24, O2 Delivery Method VISION-FFM, Vent Mode ST, Expiratory Pressure 6, Inspiratory Pressure 18, Phlebotomy Draw Site RIGHT RADIAL 11/12/16 0312: Anion Gap 9, Estimated GFR > 60, BUN/Creatinine Ratio 16.3, Lactic Acid 2.5 H, Magnesium 1.6, Troponin I 0.16 *H, Triglycerides 145, Cholesterol 161, LDL Cholesterol, Calc 85, HDL Cholesterol 47, Cholesterol/HDL Ratio 3.4, CBC w Diff NO MAN DIFF REQ, RBC 3.67 L, MCV 106.6 H, MCH 35.3 H, RDW 14.0, MPV 8.7, Gran % 87.9 H, Lymphocytes % 6.3 L, Monocytes % 4.8, Eosinophils % 0.9, Basophils % 0.1, Absolute Granulocytes 13.9 H, Absolute Lymphocytes 1.0 L, Absolute Monocytes 0.8 H, Absolute Eosinophils 0.1, Absolute Basophils 0, PUBS MCHC 33.1 11/11/16 0605: Anion Gap 9, Estimated GFR > 60, BUN/Creatinine Ratio 25.7 H, Magnesium 1.8, CBC w Diff NO MAN DIFF REQ, RBC 3.56 L, MCV 106.2 H, MCH 35.5 H, RDW 13.6, MPV 9.5, Gran % 89.9 H, Lymphocytes % 4.2 L, Monocytes % 5.9, Eosinophils % 0, Basophils % 0 L, Absolute Granulocytes 11.6 H, Absolute Lymphocytes 0.5 L, Absolute Monocytes 0.8 H, Absolute Eosinophils 0, Absolute Basophils 0, PUBS MCHC 33.4 Assessment/Plan Impression/Plan: 71-year-old female, active smoker with past medical history of COPD on 2.5 L nocturnal O2, severe emphysema with asthmatic component, alcohol dependence with h/o DT's, alcoholic cardiomyopathy and pancreatitis, HTN, hypercalcemia on cinacalcet, hypothyroidism, B12 deficiency with peripheral neuropathy, admitted to telemetry for acute on chronic respiratory failure likely secondary to COPD exacerbation and PNA, with sinus tachycardia, PE ruled out by CTA, subsequently found to have pancreatitis, then transferred to ICU for flash pulmonary edema, positive troponin, concerning for NSTEMI, hypotension. She is also withdrawing from alcohol. Active issues: # COPD exacerbation # Pneumonia # Positive troponin, NSTEMI vs demand ischemia # Flash pulmonary edema, hx of alcoholic cardiomyopathy # Hypotension # Sinus tachycardia # Alcohol withdrawal # Pancreatitis UE restrain [place] S[employer] [place] Respiratory: # COPD exacerbation # Pneumonia * Bipap as needed, hiflow oxygen as needed * Continue ceftin 500 bid * Continue prednisone 50 mg daily, noted leukocytosis most likely due to steroids use Cardiovascular # Positive troponin, most likely demand ischemia given significant tachycardia, with flash pulmonary edema, concerning for NSTEMI, hx of alcoholic cardiomyopathy - Stool guaiac negative - 11/12/16 echocardiogram: Endocardial border visualization is limited. Definity contrast was used. Moderate septal hypokinesis with paradoxical sepal motion. Left ventricular ejection fraction is estimated at 30- 35 %. * Max trop 0.71. Continue to check until it trends down * Heparin drip started as per Dr. Soto (abnormal septal movements on echocardiogram) * Aspirin and statin started, monitor liver function * NPO for straight cath. If pt cannot consent, please call Sun, her niece, at her cell, . She is agreeable to transferring pt to cath if need be. Can advance diet if pt stable till dinner. # Flash pulmonary edema - Given 1 X 20 mg IV lasix due to hypotension * BP now improved, give another 1 X 40 mg IV lasix # Hypotension down to 80 over doppler (now improved) - Could be due to metoprolol given for tachycardia - Lactic acid 2.5 --> 1.5. Fluids stopped due to flash pulmonary edema * Continue to monitor BP closely # Sinus tachycardia (up to 140s) * Hold off BB Psych # Alcohol withdrawal - Heavy alcohol use with serum alcohol 11 on admission * Low dose ativan per JORDEN Alimentary # Pancreatitis * NPO * Can give low dose morphine Endocrine # Hypercalcemia * Will continue her Cinacalcet. # Hyperglycemia. - Her HbA1c 5.6 * Patient is kept on fingersticks, this morning her blood sugar 195 # Hx of hypothyroidism - TSH: 2.830 /FT4: 1.4 * Continue levothyroxine Metabolic # Hypomagnesemia - Mag 0.9 on admission, probably secondary to alcohol use - Keep Mg > 2 * Replete as needed # Hypokalemia - Keep K > 4 * Replete as needed Diet: NPO for possible cath DVT ppx: alps and heparin drip FULL CODE Consult Acknowledgment - Thank you for your consult request.
--- NOTE | 2016-11-12 08:30 | NUR ---
REC'D THE PT IN BED WITH BRIEF PERIODS OF RESTLESSNESS AND AGITATION. AT THIS TIME SELF CALMS. PT IS ORIENTED ONLYY TO SELF. ATTEMPTING TO PULL ON DODGE, TOM WRIST RESTRAINTS AND ALLYSON REMAIN IN PLACE. THE PT ATTEMPTS TO SLIDE OOB. PT IS ORIENTED ONLY TO SELF.CIWA IS 8. PT IS IN A ST WITH OCC OVC'S. SBP IS IN THE 90'S VIA AUTOCUFF AND 100'S MANUALLY. TOM BS HAVE EXP WHEEZES THROUGHOUT WITH AN O2 SAT OF 97% ON BIPAP AT 40% WITH I/E 18/6 AND A RATE OF 24. ABD IS SOFT WITH NORMOACTIVE BOWEL SOUNDS. DODGE IN PLACE DRAINING CLEAR YELLOW URINE.
--- NOTE | 2016-11-12 09:09 | NUR ---
PHYSICAL THERAPY. PT CONSULT RECEIVED AND CHART REVIEWED. Pt CURRENTLY NOT FOLLOWING COMMANDS, POSEYED W/ B UE RESTRAINTS, HYPOTENSIVE AND ON BIPAP, RISING TROPONINS. NOT APPROPRIATE FOR PT AT THIS TIME. PT WILL F/U APPROPRIATE.
--- NOTE | 2016-11-12 10:02 | PN- CRCU ---
Subjective HPI/Critical Care Issues: PT went into acute pulm edema now in the unit GOing through active withdrawal Fatigued Has tremors and unable to give good history Dyspneic Was on bipap now on nasal cannula ROS Abd pain Dyspnea Cough Anxiety Objective Current Medications: Current Medications Sig/Liz Start time Last Medication Dose Route Stop Time Status Admin Acetaminophen 650 MG .STK-MED ONE 11/11 1633 DC PO 11/11 1634 Acetaminophen 650 MG Q6P PRN 11/09 2215 AC 11/11 PO 1635 Albuterol Sulfate 3 ML EVERY 4 HRS/AWAKE 11/10 1200 AC 11/12 INH 0824 Aspirin 81 MG DAILY 11/12 1000 UNVr PO Atorvastatin Calcium 40 MG 1700 11/12 0945 UNVr PO Ceftriaxone Sodium 1,000 MG DAILY 11/10 1000 DC 11/11 IV 1058 Cefuroxime Sodium 500 MG Q12 11/11 2200 AC 11/11 PO 2107 Cinacalcet 30 MG DAILY 11/10 1000 AC 11/11 PO 1056 Cyanocobalamin/ 1 BAG DAILY 11/10 1000 DC 11/11 Thiamine/Pyridoxine IV 1049 Sodium Chloride 1,000 ML Enoxaparin Sodium 40 MG DAILY 11/10 1000 AC 11/11 SC 1058 Fenofibrate 145 MG DAILY 11/10 1000 AC 11/11 PO 1056 Furosemide 20 MG ONCE ONE 11/12 0300 DC 11/12 IV 11/12 0301 0300 Insulin Aspart 0 TIDAC 11/11 1700 DC 11/12 SC 0857 Insulin Human Regular 0 Q6 11/12 1200 AC SC Insulin Human Regular 0 Q6 11/10 1306 DC 11/11 SC 0619 Ipratropium [place] 2.5 ML EVERY 4 HRS/AWAKE 11/10 2000 AC 11/12 INH 0824 Lactated Ringer's 1,000 ML Q6H 11/10 0030 DC 11/11 IV 2321 Levothyroxine Sodium 0.05 MG [id number]@0700 11/10 0700 AC 11/11 PO 0618 Levothyroxine Sodium 0.075 MG SuSa@0700 11/09 2145 AC PO Lorazepam 1 MG ONCE ONE 11/12 0030 DC 11/12 IV 11/12 0031 0056 Lorazepam 0 Q1P PRN 11/09 2115 AC 11/12 IV 0145 Magnesium Oxide 400 MG ONE ONE 11/11 1215 DC 11/11 PO 11/11 1216 1259 Magnesium Sulfate 1 GM ONCE ONE 11/12 0815 AC Dextrose/Water 100 ML IV 11/12 1214 Metoprolol Tartrate 5 MG ONCE ONE 11/12 0230 DC 11/12 IV 11/12 0231 0221 Mirtazapine 7.5 MG AT BEDTIME 11/09 2200 AC 11/11 PO 2107 Morphine Sulfate 2 MG Q6P PRN 11/10 0030 AC IV Omeprazole 40 MG DAILY AC 11/10 0700 AC 11/11 PO 0618 Patient Medication 1 ED .STK-MED ONE 11/11 1355 MI Teaching ED 11/11 1356 Potassium Chloride 10 MEQ Q1H 11/12 0815 DC IV 11/12 0916 Potassium Chloride 40 MEQ ONCE ONE 11/11 1215 DC 11/11 PO 11/11 1216 1259 Prednisone 50 MG DAILY 11/11 1000 AC 11/11 PO 1057 Laboratory Tests 11/12 11/12 11/12 0900 0600 0355 Blood Gas pH (7.35 - 7.45 PH) 7.38 pCO2 (35 - 45 TORR) 35 pO2 (80 - 100 TORR) 466 H HCO3 (21 - 28 MEQ/L) 21 ABG O2 Sat (Measured) (>96.0 %) 99.0 P-50 (Temp Corrected) Y Carboxyhemoglobin (1.5 - 5.0 %) 0 L O2 Concentration % 100% Temperature (97.0 - 100.0 FARH) 97.0 Respiration Rate (BPM) 24 O2 Delivery Method VISION-FFM Vent Mode ST Expiratory Pressure (CM H2O P) 6 Inspiratory Pressure (CM H2O P) 18 Chemistry Sodium Cancelled Potassium Cancelled Chloride Cancelled Carbon Dioxide Cancelled Anion Gap Cancelled BUN Cancelled Creatinine Cancelled BUN/Creatinine Ratio Cancelled Lactic Acid Pending Troponin I Pending Coagulation PT (9.4 - 12.5 SEC) 11.0 INR (0.90 - 1.19) 1.05 Hematology CBC w Diff Cancelled WBC Cancelled RBC Cancelled Hgb Cancelled Hct Cancelled MCV Cancelled MCH Cancelled RDW Cancelled Plt Count Cancelled MPV Cancelled PUBS MCHC Cancelled Miscellaneous Phlebotomy Draw Site RIGHT RADIAL 11/12 11/11 0312 0605 Chemistry Sodium (137 - 145 mmol/L) 137 137 Potassium (3.5 - 5.1 mmol/L) 3.8 3.6 Chloride (98 - 107 mmol/L) 106 105 Carbon Dioxide (22 - 30 mmol/L) 22 24 Anion Gap (5 - 16) 9 9 BUN (7 - 17 mg/dL) 13 18 H Creatinine (0.5 - 1.0 mg/dL) 0.8 0.7 Estimated GFR (>60 ml/min) > 60 > 60 BUN/Creatinine Ratio (7 - 25 %) 16.3 25.7 H Lactic Acid (0.7 - 2.1 mmol/L) 2.5 H Magnesium (1.6 - 2.3 mg/dL) 1.6 1.8 Troponin I (< 0.11 ng/ml) 0.16 *H Triglycerides (<150 mg/dL) 145 Cholesterol (<200 MG/DL) 161 LDL Cholesterol, Calc (65 - 129 mg/dL) 85 HDL Cholesterol (40 - 60 mg/dL) 47 Cholesterol/HDL Ratio (0.00 - 4.23 %) 3.4 Hematology CBC w Diff NO MAN DIFF REQ NO MAN DIFF REQ WBC (4.8 - 10.8 /CUMM) 15.8 H 12.9 H RBC (4.20 - 5.40 /CUMM) 3.67 L 3.56 L Hgb (12.0 - 16.0 G/DL) 13.0 12.6 Hct (37 - 47 %) 39.2 37.8 MCV (81.0 - 99.0 FL) 106.6 H 106.2 H MCH (27.0 - 31.0 PG) 35.3 H 35.5 H RDW (11.5 - 14.5 %) 14.0 13.6 Plt Count (130 - 400 /CUMM) 181 138 MPV (7.4 - 10.4 FL) 8.7 9.5 Gran % (42.2 - 75.2 %) 87.9 H 89.9 H Lymphocytes % (20.5 - 51.1 %) 6.3 L 4.2 L Monocytes % (1.7 - 9.3 %) 4.8 5.9 Eosinophils % (0 - 5 %) 0.9 0 Basophils % (0.0 - 2.0 %) 0.1 0 L Absolute Granulocytes (1.4 - 6.5 /CUMM) 13.9 H 11.6 H Absolute Lymphocytes (1.2 - 3.4 /CUMM) 1.0 L 0.5 L Absolute Monocytes (0.10 - 0.60 /CUMM) 0.8 H 0.8 H Absolute Eosinophils (0.0 - 0.7 /CUMM) 0.1 0 Absolute Basophils (0.0 - 0.2 /CUMM) 0 0 PUBS MCHC (33.0 - 37.0 G/DL) 33.1 33.4 Microbiology Date/Time Procedure - Status Source Growth 11/12 050 Urine Culture - RECD URINE ROUT 11/12 0500 Surveillance Culture - RECD UPPER RESP 11/12 050 Surveillance Culture - RECD GI 11/10 136 Legionella Antigen - COMP URINE ROUT 11/10 136 Streptococcus pneumoniae Antigen (M - COMP URINE ROUT 11/10 136 Urine Culture - COMP URINE ROUT 11/10 34 Respiratory Culture - CAN LOWER RESP Cancelled: SPECIMEN NOT RECEIVED IN LABORATORY 11/10 34 Gram Stain - CAN LOWER RESP Cancelled: SPECIMEN NOT RECEIVED IN LABORATORY 11/09 1936 Blood Culture - RES BLOOD 11/09 1929 Blood Culture - RES BLOOD 11/09 1710 Influenza Virus A & B Rapid Smear - COMP NASOPHARYN Vital Signs & I&O Last 24 Hrs of Vitals and I&O: Vital Signs Date Time Temp Pulse Resp B/P Pulse O2 O2 Flow FiO2 Ox Delivery Rate 11/12 0820 94 Nasal 5.0L Cannula 11/12 0810 102 96 11/12 0622 98 97 11/12 0600 97.6 98 20 88/61 11/12 0424 100 99 11/12 0421 99 99 11/12 0400 97.6 102 24 80/00 11/12 0400 96 BIPAP 40% 11/12 0301 117 97 11/12 0230 98.8 117 28 104/62 78 Nasal 3.0L Cannula 11/12 0221 156 170/00 11/12 0221 160 170/00 11/12 0211 91 Nasal 3.0L Cannula 11/12 0152 120 26 146/90 90 Nasal 3.0L Cannula 11/12 0147 145 28 146/90 11/12 0056 133 11/12 0011 108 11/12 0000 96 Nasal 3.0L Cannula 11/11 2317 111 11/11 2248 98.5 91 20 138/78 97 Nasal Cannula 11/11 1626 98.2 95 20 156/93 96 Nasal Cannula 11/11 1610 95 Nasal 3.0L Cannula 11/11 1600 Nasal 3.0L Cannula Intake & Output 11/12 1600 11/12 0800 11/12 0000 Intake Total 0 1650 Output Total 330 3 Balance -330 1647 Intake, IV 0 1050 Intake, Oral 0 600 Output, Other 3 Output, Urine 330 Laboratory Tests 11/12 11/12 11/12 0900 0600 0355 Blood Gas pH (7.35 - 7.45 PH) 7.38 pCO2 (35 - 45 TORR) 35 pO2 (80 - 100 TORR) 466 H HCO3 (21 - 28 MEQ/L) 21 ABG O2 Sat (Measured) (>96.0 %) 99.0 P-50 (Temp Corrected) Y Carboxyhemoglobin (1.5 - 5.0 %) 0 L O2 Concentration % 100% Temperature (97.0 - 100.0 FARH) 97.0 Respiration Rate (BPM) 24 O2 Delivery Method VISION-FFM Vent Mode ST Expiratory Pressure (CM H2O P) 6 Inspiratory Pressure (CM H2O P) 18 Chemistry Sodium Cancelled Potassium Cancelled Chloride Cancelled Carbon Dioxide Cancelled Anion Gap Cancelled BUN Cancelled Creatinine Cancelled BUN/Creatinine Ratio Cancelled Lactic Acid Pending Troponin I Pending Coagulation PT (9.4 - 12.5 SEC) 11.0 INR (0.90 - 1.19) 1.05 Hematology CBC w Diff Cancelled WBC Cancelled RBC Cancelled Hgb Cancelled Hct Cancelled MCV Cancelled MCH Cancelled RDW Cancelled Plt Count Cancelled MPV Cancelled PUBS MCHC Cancelled Miscellaneous Phlebotomy Draw Site RIGHT RADIAL 11/12 11/11 0312 0605 Chemistry Sodium (137 - 145 mmol/L) 137 137 Potassium (3.5 - 5.1 mmol/L) 3.8 3.6 Chloride (98 - 107 mmol/L) 106 105 Carbon Dioxide (22 - 30 mmol/L) 22 24 Anion Gap (5 - 16) 9 9 BUN (7 - 17 mg/dL) 13 18 H Creatinine (0.5 - 1.0 mg/dL) 0.8 0.7 Estimated GFR (>60 ml/min) > 60 > 60 BUN/Creatinine Ratio (7 - 25 %) 16.3 25.7 H Lactic Acid (0.7 - 2.1 mmol/L) 2.5 H Magnesium (1.6 - 2.3 mg/dL) 1.6 1.8 Troponin I (< 0.11 ng/ml) 0.16 *H Triglycerides (<150 mg/dL) 145 Cholesterol (<200 MG/DL) 161 LDL Cholesterol, Calc (65 - 129 mg/dL) 85 HDL Cholesterol (40 - 60 mg/dL) 47 Cholesterol/HDL Ratio (0.00 - 4.23 %) 3.4 Hematology CBC w Diff NO MAN DIFF REQ NO MAN DIFF REQ WBC (4.8 - 10.8 /CUMM) 15.8 H 12.9 H RBC (4.20 - 5.40 /CUMM) 3.67 L 3.56 L Hgb (12.0 - 16.0 G/DL) 13.0 12.6 Hct (37 - 47 %) 39.2 37.8 MCV (81.0 - 99.0 FL) 106.6 H 106.2 H MCH (27.0 - 31.0 PG) 35.3 H 35.5 H RDW (11.5 - 14.5 %) 14.0 13.6 Plt Count (130 - 400 /CUMM) 181 138 MPV (7.4 - 10.4 FL) 8.7 9.5 Gran % (42.2 - 75.2 %) 87.9 H 89.9 H Lymphocytes % (20.5 - 51.1 %) 6.3 L 4.2 L Monocytes % (1.7 - 9.3 %) 4.8 5.9 Eosinophils % (0 - 5 %) 0.9 0 Basophils % (0.0 - 2.0 %) 0.1 0 L Absolute Granulocytes (1.4 - 6.5 /CUMM) 13.9 H 11.6 H Absolute Lymphocytes (1.2 - 3.4 /CUMM) 1.0 L 0.5 L Absolute Monocytes (0.10 - 0.60 /CUMM) 0.8 H 0.8 H Absolute Eosinophils (0.0 - 0.7 /CUMM) 0.1 0 Absolute Basophils (0.0 - 0.2 /CUMM) 0 0 PUBS MCHC (33.0 - 37.0 G/DL) 33.1 33.4 Microbiology Date/Time Procedure - Status Source Growth 11/12 499 Urine Culture - RECD URINE ROUT 11/12 0500 Surveillance Culture - RECD UPPER RESP 11/12 0500 Surveillance Culture - RECD GI 11/10 0137 Legionella Antigen - COMP URINE ROUT 11/10 013 Streptococcus pneumoniae Antigen (M - COMP URINE ROUT 11/10 0137 Urine Culture - COMP URINE ROUT 11/10 0035 Respiratory Culture - CAN LOWER RESP Cancelled: SPECIMEN NOT RECEIVED IN LABORATORY 11/10 34 Gram Stain - CAN LOWER RESP Cancelled: SPECIMEN NOT RECEIVED IN LABORATORY 11/09 1936 Blood Culture - RES BLOOD 11/09 1929 Blood Culture - RES BLOOD 11/09 1710 Influenza Virus A & B Rapid Smear - COMP NASOPHARYN Impression/Plan Impression/Plan Impression/Plan: Physical Exam General Appearance Alert, Oriented X2, Cooperative, Moderate Distress dyspnea Skin No Rashes, No Significant Lesion HEENT Atraumatic, PERRLA, EOMI, Mucous Membr. moist/pink Neck Supple, +2 Carotid Pulse wo Bruit Lymphatic Cervical nl Cardiovascular Tachycarid with normal S1/S2 Lungs Diffuse wheezing in all lung bridges with decreased air entry bilaterally. Decreased basal breath sounds. with crackles Abdomen Normal Bowel Sounds, Soft, Petechia noted on abdomen., tenderness to palpation of epigastric region Neurological Normal Speech, Normal Tone Extremities No Clubbing, No Cyanosis, No Edema, Normal Pulses, No Tenderness/ Swelling Vascular Pulses Symmetrical This is a 71-year-old lady with history of significant smoking, severe COPD with asthmatic component, recurrent respiratory failure with COPD exacerbation, more than [id number] smoking history, FEV1 of 0.8 L on 2-3 L nasal cannula at home usually, still ongoing smoking, previous history of significant alcoholism now has been drinking, depression, hypothyroidism on adequate supplementation, hypertension, previous liver failure with alcoholic hepatitis which seems to have resolved, Now with abd pain and wheezing * Acute pulm edema in a lady with high risk for ihd with previous non obs coronary disease, after fluid resusitation for pancreatitis, Acute coronary syndrome could still be a posibility * Significant acute pancreatitis with ongoing drinking * Severe COPD with acute exacerbation of COPD * Right middle lobe infiltrate unlikely to be pneumonia but cannot rule out * Significant alcoholism with active withdrawal * Sinus tachycardia * Sig hypercalcemia most likely related to multiple issues patient has been on cinacalcet * Ongoing nicotine use * Hypothyroidism on appropriate supplementation * Hyperlipidemia * Previous history of liver failure / Immunosuppressed state due to alcoholism / Significant fatty liver / Glucose intolerance and B12 deficiency / Peripheral neuropathy. / Previous nonischemic heart disease with previous coronary angiogram which was unremarkable but patient does have cardiomyopathy probably related to previous alcoholism which is mild, watch for chf RECOMMENDATION * COnt gentle diuresis * ASa statin, * Ativan * Continue nebulizer therapy with ipratropium and albuterol every 6 hours * Sugar control * Should start on a low cholesterol diet, check triglyceride. * By mouth prednisone and can change her antibiotics to by mouth Ceftin 500 twice a day * Recheck calcium, magnesium and potassium. * Continue Lovenox * Continue her Levoxyl, check tsh and free t4 * Keep the head of bed elevated * BIPAP prn, or high flow if needed PT is critically ill tts 40 mins
--- NOTE | 2016-11-12 11:27 | ECHOCARDIOGRAM REPORT ---
BELINDA CLEANING Age: 71 : 1945 Gender: F Exam Date: 11/12/2016 10:53 Exam Location: [facility] Ht (in): 61 Wt (lb): 140 BSA: 1.67 BP: 116 / 69 Ordering Physician: KRISTIAN GOINS MD Referring Physician: KRISTIAN GOINS MD Technologist: Ryan Boyer BIANCA Room Number: 107 Indications: RESPIRATORY FAILURE Rhythm: Technical Quality: Very technically difficult study FINDINGS Left Ventricle Left ventricular cavity size normal. Normal left ventricular wall thickness. Endocardial border visualization is limited. Definity contrast was used. Moderate septal hypokinesis with paradoxical sepal motion. Left ventricular ejection fraction is estimated at 30- 35 %. Right Ventricle Right ventricle not well visualized, grossly normal. Right Atrium Right atrium not well visualized, grossly normal. Left Atrium Normal left atrial size. Mitral Valve Mitral valve not well visualized, grossly normal. No mitral stenosis. Trace mitral regurgitation. Aortic Valve Aortic valve not well visualized. No aortic stenosis. Tricuspid Valve Tricuspid valve not well visualized, grossly normal. Trace tricuspid regurgitation. Unable to estimate the right ventricular systolic pressure. Pulmonic Valve Pulmonic valve not well visualized. Pericardium No pericardial effusion. Great Vessels Normal size aortic root. CONCLUSIONS Very technically difficult study. Left ventricular cavity size normal. Normal left ventricular wall thickness. Endocardial border visualization is limited. Definity contrast was used. Moderate septal hypokinesis with paradoxical sepal motion. Left ventricular ejection fraction is estimated at 30- 35 %. Right ventricle not well visualized, grossly normal. Unable to estimate the right ventricular systolic pressure. No pericardial effusion. Elroy Soto M.D. (Electronically Signed) Final Date: 12 November 2016 11:26 MEASUREMENTS (Male / Female) Normal Values 2D ECHO LV Diastolic Diameter PLAX 4.2 cm 4.2 - 5.9 / 3.9 - 5.3 cm LV Systolic Diameter PLAX 3.0 cm 2.1 - 4.0 cm LV Fractional Shortening PLAX 28.6 % 25 - 46 % LV Ejection Fraction 2D Teich 55.5 % IVS Diastolic Thickness 0.9 cm LVPW Diastolic Thickness 0.9 cm LV Relative Wall Thickness 0.4 RV Internal Dim ED PLAX 3.0 cm 1.9 - 3.8 cm LVOT Diameter 1.8 cm Aortic Root Diameter 2.4 cm LA Systolic Diameter LX 3.5 cm 3.0 - 4.0 / 2.7 - 3.8 cm DOPPLER AV Peak Velocity 131.0 cm/s AV Peak Gradient 6.9 mmHg AV Mean Velocity 68.3 cm/s AV Mean Gradient 3.0 mmHg AV Velocity Time Integral 21.4 cm LVOT Peak Velocity 87.2 cm/s LVOT Peak Gradient 3.0 mmHg LVOT Mean Velocity 55.8 cm/s LVOT Mean Gradient 2.0 mmHg LVOT Velocity Time Integral 14.4 cm LVOT Stroke Volume 36.6 cm AV Area Cont Eq vti 1.7 cm AV Area Cont Eq pk 1.7 cm MV Peak Velocity 116.0 cm/s MV Peak Gradient 5.4 mmHg MV Mean Velocity 71.3 cm/s MV Mean Gradient 2.0 mmHg Mitral E Point Velocity 66.6 cm/s Mitral A Point Velocity 80.0 cm/s Mitral E to A Ratio 0.8 MV PHT Velocity 85.5 cm/s MV Deceleration [place] 196.0 cm/s MV Pressure Half Time 130.9 ms MV Area PHT 1.7 cm MV Deceleration Time 208.0 ms PV Peak Velocity 96.5 cm/s PV Peak Gradient 3.7 mmHg PV Mean Velocity 68.6 cm/s PV Mean Gradient 2.0 mmHg PV Velocity Time Integral 18.8 cm LV E' Lateral Velocity 7.1 cm/s Mitral E to LV E' Lateral Ratio 9.4 LV E' Septal Velocity 6.4 cm/s Mitral E to LV E' Septal Ratio 10.4
--- NOTE | 2016-11-12 11:37 | Event Note ---
Event Note Event Note: Patient's Echo shows EF 30-35% with septal hypokinesis. Differential still includes demand ischemia or Takatsubo's cardiomyopathy but NSTEMI is in the differential and we have started her on IV Heparin for the time being. Not currently a good candidate for cardiac cath as she is currently HD stable with evidence of acute pancreatitis and EtOH withdrawl. Of note the patient did have a cardiac cath at [facility] 2012 that showed non-obstructive CAD with EF 45-50% by LVgram. Hold B-bety and NETTE-I for now given the borderline BP. Trend troponins until they are downtrending. Discussed with patient's niece and with the critical care team at length. Condition is guarded and she will be kept in the ICU for now. Andres Soto MD [facility]
--- NOTE | 2016-11-12 12:00 | NUR ---
TROPONIN 0.[address] REY A HEPARIN GTT OF HEPARIN 58659U/500 1/2NS INITIATED AT 1147 AT 12U/KG/HR OR 15.3ML/HR INFUSING VIA A #20 TO THE LF. PTT DUE AT 1800. PT HAS BECOME INCREASINGLY AGITATED, CALLING OUT "ASSHOLE" REPEATEDLY. TAKES NUMEROUS ATTEMPTS BUT CAN CALM THE PT. PT REMAINS ORIENTED TO SELF ONLY. WHEN ASKED WHERE SHE WAS SHE STATED," IN A ROOM FULL OF MANIACS." FREQUENT REASSURANCE GIVEN.
[2016-11-12 18:57] LABS: PTT 41 SEC (25-37)
[2016-11-13] VITALS (7 sets, daily range): BP systolic 101–143; BP diastolic 66–115
[2016-11-13 05:12] LABS: ABSOLUTE BASOPHIL COUNT 0 /CUMM (0.0-0.2); ABSOLUTE EOSINOPHIL COUNT 0.1 /CUMM (0.0-0.7); ABSOLUTE GRANULOCYTE CT 8.7 /CUMM (1.4-6.5); ABSOLUTE LYMPH COUNT 0.9 /CUMM (1.2-3.4); ABSOLUTE MONOCYTE COUNT 0.7 /CUMM (0.10-0.60); BASOPHIL % 0.2 % (0.0-2.0); EOSINOPHIL % 1.3 % (0-5); GRANULOCYTE % 83.3 % (42.2-75.2); HEMATOCRIT 36.7 % (37-47); MEAN CORPUSCULAR HGB 35.4 PG (27.0-31.0); MEAN CORPUSCULAR HGB CONC 33.6 G/DL (33.0-37.0); MEAN CORPUSCULAR VOLUME 105.6 FL (81.0-99.0); MEAN PLATELET VOLUME 9.7 FL (7.4-10.4); PLATELET COUNT 144 /CUMM (130-400); RBC DISTRIBUTION WIDTH 13.7 % (11.5-14.5); RED BLOOD CELL CT 3.47 /CUMM (4.20-5.40); WHITE BLOOD CELL COUNT 10.4 /CUMM (4.8-10.8)
[2016-11-13 05:18] LABS: PTT 26 SEC (25-37)
--- NOTE | 2016-11-13 07:03 | PN- Resident CRCU ---
Subjective HPI/CRCU Issues: Pt was seen this morning, she was alert, awake, hallucinating and agitated, refused to be examined, telling me to get out of the room immediately to get my supervisors because the men under her blanket is about to make a mess. When asked if she has any pain, she said "nevermind pain, just go!". She also got mad when I was talking to her sitter, and said "no chit chat, go now". Her CIWA 4-12, and she received 6mg IV ativan over 24 hours. Atvan PO taper has been ordered. Her trop is now trending down from max of 0.80. She is still on heparin drip and did receive heparin bolus overnight due to subtherapeutic PTT. WBC improving to 10.4. K 3.6 to 4.4, trop 0.8 to 0.58, glucose 163, 257, mag still 1.7. 2gm mg sulf ordered. Her diet has been advanced to CC2 with novolog tidac. 24 Hour Events: Max temp 98.5 ST 101-112 RR 24-29 Systolic BP 96-143 Diastolic BP 61-115 Bipap overnight, now on 3L NC Objective Vital Signs & I&O Last 8 Hrs of Vitals and I&O: Intake & Output 11/13 1600 11/13 0800 11/13 0000 Intake Total 285 Output Total 300 Balance -15 Intake, IV 165 Intake, Oral 120 Number 0 Bowel Movements Output, Urine 300 Laboratory Tests 11/13 11/12 11/12 0440 2040 1815 Chemistry Sodium (137 - 145 mmol/L) 140 Potassium (3.5 - 5.1 mmol/L) 4.4 Chloride (98 - 107 mmol/L) 107 Carbon Dioxide (22 - 30 mmol/L) 23 Anion Gap (5 - 16) 10 BUN (7 - 17 mg/dL) 17 Creatinine (0.5 - 1.0 mg/dL) 0.7 Estimated GFR (>60 ml/min) > 60 Glucose (65 - 99 mg/dL) 163 H Calcium (8.4 - 10.2 mg/dL) 8.5 Phosphorus (2.5 - 4.5 mg/dL) 2.6 Magnesium (1.6 - 2.3 mg/dL) 1.7 Total Bilirubin (0.2 - 1.3 mg/dL) 0.5 AST (14 - 36 U/L) 40 H ALT (9 - 52 U/L) 65 H Troponin I (< 0.11 ng/ml) 0.58 *H Albumin (3.5 - 5.0 g/dL) 2.9 L Coagulation APTT (25 - 37 SEC) 26 41 H Hematology CBC w Diff NO MAN DIFF REQ WBC (4.8 - 10.8 /CUMM) 10.4 RBC (4.20 - 5.40 /CUMM) 3.47 L Hgb (12.0 - 16.0 G/DL) 12.3 Hct (37 - 47 %) 36.7 L MCV (81.0 - 99.0 FL) 105.6 H MCH (27.0 - 31.0 PG) 35.4 H RDW (11.5 - 14.5 %) 13.7 Plt Count (130 - 400 /CUMM) 144 MPV (7.4 - 10.4 FL) 9.7 Gran % (42.2 - 75.2 %) 83.3 H Lymphocytes % (20.5 - 51.1 %) 8.1 L Monocytes % (1.7 - 9.3 %) 7.1 Eosinophils % (0 - 5 %) 1.3 Basophils % (0.0 - 2.0 %) 0.2 Absolute Granulocytes (1.4 - 6.5 /CUMM) 8.7 H Absolute Lymphocytes (1.2 - 3.4 /CUMM) 0.9 L Absolute Monocytes (0.10 - 0.60 /CUMM) 0.7 H Absolute Eosinophils (0.0 - 0.7 /CUMM) 0.1 Absolute Basophils (0.0 - 0.2 /CUMM) 0 PUBS MCHC (33.0 - 37.0 G/DL) 33.6 03/ 1432 Chemistry Sodium (137 - 145 mmol/L) 137 Potassium (3.5 - 5.1 mmol/L) 3.6 Chloride (98 - 107 mmol/L) 101 Carbon Dioxide (22 - 30 mmol/L) 26 Anion Gap (5 - 16) 10 BUN (7 - 17 mg/dL) 19 H Creatinine (0.5 - 1.0 mg/dL) 0.9 Estimated GFR (>60 ml/min) > 60 Glucose (65 - 99 mg/dL) 257 H Calcium (8.4 - 10.2 mg/dL) 8.3 L Phosphorus (2.5 - 4.5 mg/dL) 1.5 L Magnesium (1.6 - 2.3 mg/dL) 1.6 Total Bilirubin (0.2 - 1.3 mg/dL) 0.6 AST (14 - 36 U/L) 61 H ALT (9 - 52 U/L) 76 H Troponin I (< 0.11 ng/ml) 0.80 *H Albumin (3.5 - 5.0 g/dL) 3.1 L Laboratory Tests 11/13/16 0440: Anion Gap 10, Estimated GFR > 60, Glucose 163 H, Calcium 8.5, Phosphorus 2.6, Magnesium 1.7, Total Bilirubin 0.5, AST 40 H, ALT 65 H, Albumin 2.9 L, APTT 26, CBC w Diff NO MAN DIFF REQ, RBC 3.47 L, MCV 105.6 H, MCH 35.4 H, RDW 13.7 , MPV 9.7, Gran % 83.3 H, Lymphocytes % 8.1 L, Monocytes % 7.1, Eosinophils % 1.3, Basophils % 0.2, Absolute Granulocytes 8.7 H, Absolute Lymphocytes 0.9 L, Absolute Monocytes 0.7 H, Absolute Eosinophils 0.1, Absolute Basophils 0, PUBS MCHC 33.6 11/12/16 2040: Troponin I 0.58 *H 11/12/16 1815: APTT 41 H 11/12/16 1432: Anion Gap 10, Estimated GFR > 60, Glucose 257 H, Calcium 8.3 L, Phosphorus 1.5 L, Magnesium 1.6, Total Bilirubin 0.6, AST 61 H, ALT 76 H, Troponin I 0.80 *H , Albumin 3.1 L Vital Signs Date Time Temp Pulse Resp B/P Pulse O2 O2 Flow FiO2 Ox Delivery Rate 11/13 0831 109 96 11/13 0820 95 Nasal 3.0L Cannula 11/13 0604 95 95 11/13 0600 98 29 143/115 11/13 0400 98.5 24 24 134/85 11/13 0400 97 BIPAP 30% 11/13 0313 87 96 11/13 0200 88 24 121/75 11/13 0018 110 95 11/13 0015 101 98 11/13 0000 97.0 100 30 122/81 11/13 0000 97.0 108 29 122/81 95 BIPAP 30% 11/13 0000 95 BIPAP 30% 11/12 2200 108 30 122/70 11/12 2150 105 94 11/13 1999 97.9 111 34 144/105 11/12 2000 100 BIPAP 40% 11/12 1837 106 94 11/12 1617 95 BIPAP 40% 11/12 1616 104 95 11/12 1600 97.6 105 29 120/78 11/12 1600 97 BIPAP 40% 11/12 1600 97.6 105 29 120/78 97 BIPAP 40% 11/12 1400 97.8 110 26 107/79 11/12 1230 115 97 11/12 1201 94 Nasal 5.0L Cannula 11/12 1200 97.8 112 28 120/70 11/12 1200 94 Nasal 5.0L Cannula 11/12 1000 96.9 114 27 104/60 Exam General Appearance: alert, awake, hallucinating, refused to be examined Current Medications: Current Medications Sig/Liz Start time Last Medication Dose Route Stop Time Status Admin Acetaminophen 650 MG Q6P PRN 11/09 2215 AC 11/11 PO 1635 Albuterol Sulfate 3 ML EVERY 4 HRS/AWAKE 11/10 1200 AC 11/13 INH 0759 Aspirin 81 MG DAILY 11/12 1000 AC 11/12 PO 1019 Atorvastatin Calcium 40 MG 1700 11/12 0945 AC 11/12 PO 1717 Cefuroxime Sodium 500 MG Q12 11/11 2200 AC 11/12 PO 2257 Cinacalcet 30 MG DAILY 11/10 1000 AC 11/12 PO 1020 Enoxaparin Sodium 40 MG DAILY 11/10 1000 DC 11/12 SC 1020 Fenofibrate 145 MG DAILY 11/10 1000 AC 11/12 PO 1019 Folic Acid 1 MG DAILY 11/13 1000 AC PO 11/15 1001 Furosemide 40 MG ONCE ONE 11/12 1015 DC 11/12 IV 11/12 1016 1035 Heparin Sodium 3,810 UNIT ONCE ONE 11/13 0530 DC 11/13 (Porcine) IV 11/13 0531 0530 Heparin Sodium 25,000 UNIT Q24H 11/12 1045 AC 11/12 (Porcine) IV 1147 Sodium Chloride 500 ML Insulin Aspart 0 TIDAC 11/13 0800 AC SC Insulin Aspart 0 TIDAC 11/12 1200 CAN SC Insulin Aspart 0 TIDAC 11/11 1700 DC 11/12 SC 0857 Insulin Human Regular 0 Q6 11/12 1200 CAN SC Insulin Human Regular 0 Q6 11/12 1200 DC 11/13 SC 0655 Ipratropium [place] 2.5 ML EVERY 4 HRS/AWAKE 11/10 2000 AC 11/13 INH 0759 Levothyroxine Sodium 0.05 MG [id number] 11/10 0700 AC 11/13 PO 0656 Levothyroxine Sodium 0.075 MG [id number]@0700 11/09 2145 AC PO Lorazepam 0.5 MG ONCE 11/18 0000 AC PO 11/18 0001 Lorazepam 0.5 MG Q6H 11/17 0000 AC PO 11/17 1801 Lorazepam 1.5 MG Q12H 11/15 0600 AC PO 11/15 1801 Lorazepam 1.5 MG Q6 11/14 0600 AC PO 11/14 1801 Lorazepam 2 MG Q6 11/13 0754 AC PO 11/14 0001 Lorazepam 0 Q1P PRN 11/09 2115 AC 11/13 IV 0007 Magnesium Oxide 400 MG BID 11/12 1015 DC 11/12 PO 11/12 2201 2257 Magnesium Sulfate 1 GM Q2H 11/13 0730 AC Dextrose/Water 100 ML IV 11/13 1129 Magnesium Sulfate 1 GM ONCE ONE 11/12 1745 CAN Dextrose/Water 100 ML IV 11/12 2144 Magnesium Sulfate 1 GM ONCE ONE 11/12 0815 DC Dextrose/Water 100 ML IV 11/12 1214 Mirtazapine 7.5 MG AT BEDTIME 11/09 2200 AC 11/12 PO 2258 Morphine Sulfate 2 MG Q6P PRN 11/10 0030 AC IV Multivitamins 1 TAB DAILY 11/13 1000 AC PO Omeprazole 40 MG DAILY AC 11/10 0700 AC 11/13 PO 0656 Potassium Chloride 40 MEQ ONCE ONE 11/12 1745 DC 11/12 PO 11/12 1746 1823 Potassium Chloride 40 MEQ ONCE ONE 11/12 1015 DC 11/12 PO 11/12 1016 1026 Potassium Chloride 10 MEQ Q1H 11/12 0815 DC IV 11/12 0916 Potassium Phosphate 15 mMol ONE ONE 11/12 1745 DC 11/12 Dextrose/Water 250 ML IV 11/12 2148 1823 Prednisone 50 MG DAILY 11/11 1000 AC 11/12 PO 1019 Thiamine HCl 100 MG DAILY 11/13 1000 AC PO 11/15 1001 Impression/Plan Impression/Problem List Impression: 71-year-old female, active smoker with past medical history of COPD on 2.5 L nocturnal O2, severe emphysema with asthmatic component, alcohol dependence with h/o DT's, alcoholic cardiomyopathy and pancreatitis, HTN, hypercalcemia on cinacalcet, hypothyroidism, B12 deficiency with peripheral neuropathy, admitted to telemetry for acute on chronic respiratory failure likely secondary to COPD exacerbation and PNA, with sinus tachycardia, PE ruled out by CTA, subsequently found to have pancreatitis, then transferred to ICU for flash pulmonary edema, positive troponin, concerning for NSTEMI, hypotension. She is also withdrawing from alcohol. Active issues: # COPD exacerbation # Pneumonia # Positive troponin, NSTEMI vs demand ischemia # Flash pulmonary edema, hx of alcoholic cardiomyopathy # Hypotension # Sinus tachycardia # Alcohol withdrawal # [facility]itis [facility] # Alcohol withdrawal - Heavy alcohol use with serum alcohol 11 on admission * PO ativan taper started. IV ativan PRN * Folic acid, thiamine, multivitamin Respiratory: # COPD exacerbation # Pneumonia * Bipap as needed, hiflow oxygen as needed * Continue ceftin 500 bid * Continue prednisone 50 mg daily, noted leukocytosis most likely due to steroids use Cardiovascular # Positive troponin, most likely demand ischemia given significant tachycardia, with flash pulmonary edema, concerning for NSTEMI, hx of alcoholic cardiomyopathy - Stool guaiac negative - 11/12/16 echocardiogram: Endocardial border visualization is limited. Definity contrast was used. Moderate septal hypokinesis with paradoxical sepal motion. Left ventricular ejection fraction is estimated at 30- 35 %. * Max trop 0.8, has trended down * Heparin drip started as per Dr. Soto (abnormal septal movements on echocardiogram). Continue heparin drip for another 24-48 hours * Aspirin and statin started, monitor liver function * If pt cannot consent, please call Sun, her niece, at her cell, . She is agreeable to transferring pt to cath if need be. # Flash pulmonary edema - Given 1 X 20 mg IV lasix due to hypotension, then another 1 X 40 mg IV lasix once BP improved * 11/13: 2 X 40 mg IV lasix # Hypotension down to 80 over doppler (resolved) - Could be due to metoprolol given for tachycardia - Lactic acid 2.5 --> 1.5. Fluids stopped due to flash pulmonary edema * Continue to monitor BP closely # Sinus tachycardia (up to 140s) * Metoprolol 25 mg BID started on 11/13 Alimentary # Pancreatitis * Can give low dose morphine Endocrine # Hypercalcemia * Will continue her Cinacalcet. # Hyperglycemia. - Her HbA1c 5.6 * Patient is kept on fingersticks * On novolog tidac # Hx of hypothyroidism - TSH: 2.830 /FT4: 1.4 * Continue levothyroxine Metabolic # Hypomagnesemia - Mag 0.9 on admission, probably secondary to alcohol use - Keep Mg > 2 * Replete as needed # Hypokalemia - Keep K > 4 * Replete as needed Diet: CC2 DVT ppx: alps and heparin drip FULL CODE Problem List: 1. Alcohol withdrawal 2. Acute pancreatitis Pain Ratin Tomorrow's Labs & Rationales: ICU and CBC for critically ill , electrolyte abnormality Plan DVT/Prophylaxis: mechanical, pharmacological
--- NOTE | 2016-11-13 07:32 | NUR ---
PHYSICAL THERAPY. Pt REMAINS CRITICALLY ILL IN ICU, NOT APPROPRIATE FOR ACUTE PT. Pt BEING PLACED ON HOLD, PLEASE RE-CONSULT APPROPRIATE.
--- NOTE | 2016-11-13 09:40 | PN- Cardiology ---
Subjective Subjective: Patient remains sedated on BiPAP. Sinus tachycardia on telemetry. Objective Vital Signs and I&Os Vital Signs Date Time Temp Pulse Resp B/P Pulse O2 O2 Flow FiO2 Ox Delivery Rate 11/13 0831 109 96 11/13 0820 95 Nasal 3.0L Cannula 11/13 0604 95 95 11/13 0600 98 29 143/115 11/13 0400 98.5 24 24 134/85 11/13 0400 97 BIPAP 30% 11/13 0313 87 96 11/13 0200 88 24 121/75 11/13 0018 110 95 11/13 0015 101 98 11/13 0000 97.0 100 30 122/81 11/13 0000 97.0 108 29 122/81 95 BIPAP 30% 11/13 0000 95 BIPAP 30% 11/12 2200 108 30 122/70 11/12 2150 105 94 11/13 1999 97.9 111 34 144/105 11/13 1999 100 BIPAP 40% 11/12 1837 106 94 11/12 1617 95 BIPAP 40% 11/12 1616 104 95 11/12 1600 97.6 105 29 120/78 11/12 1600 97 BIPAP 40% 11/12 1600 97.6 105 29 120/78 97 BIPAP 40% 11/12 1400 97.8 110 26 107/79 11/12 1230 115 97 11/12 1201 94 Nasal 5.0L Cannula 11/12 1200 97.8 112 28 120/70 11/12 1200 94 Nasal 5.0L Cannula 11/12 1000 96.9 114 27 104/60 Intake & Output 11/13 1600 11/13 0800 11/13 0000 11/12 1600 11/12 0800 11/12 0000 Intake Total 285 738 0 1650 Output Total 300 1200 330 3 Balance -15 -462 -330 1647 Intake, IV 165 388 0 1050 Intake, Oral 120 350 0 600 Number 0 1 Bowel Movements Output, Other 3 Output, Urine 300 1200 330 Physical Exam: Gen. exam patient sedated. Head normocephalic atraumatic Eyes sclera anicteric conjunctiva showed no pallor extraocular muscles were normal Neck no jugular venous distention no thyroid masses no palpable nodes Chest lungs were clear and equal air entry bilaterally Heart regular rhythm sinus tachycardia Abdomen soft protuberant Extremities no edema Neurological not tested Current Medications: Current Medications Sig/Liz Start time Last Medication Dose Route Stop Time Status Admin Acetaminophen 650 MG Q6P PRN 11/09 2215 AC 11/11 PO 1635 Albuterol Sulfate 3 ML EVERY 4 HRS/AWAKE 11/10 1200 AC 11/13 INH 0759 Aspirin 81 MG DAILY 11/12 1000 AC 11/12 PO 1019 Atorvastatin Calcium 40 MG 1700 11/12 0945 AC 11/12 PO 1717 Cefuroxime Sodium 500 MG Q12 11/11 2200 AC 11/12 PO 2257 Cinacalcet 30 MG DAILY 11/10 1000 AC 11/12 PO 1020 Enoxaparin Sodium 40 MG DAILY 11/10 1000 DC 11/12 SC 1020 Fenofibrate 145 MG DAILY 11/10 1000 AC 11/12 PO 1019 Folic Acid 1 MG DAILY 11/13 1000 AC PO 11/15 1001 Furosemide 40 MG ONCE ONE 11/12 1015 DC 11/12 IV 11/12 1016 1035 Heparin Sodium 3,810 UNIT ONCE ONE 11/13 0530 DC 11/13 (Porcine) IV 11/13 0531 0530 Heparin Sodium 25,000 UNIT Q24H 11/12 1045 AC 11/12 (Porcine) IV 1147 Sodium Chloride 500 ML Insulin Aspart 0 TIDAC 11/13 0800 AC SC Insulin Aspart 0 TIDAC 11/12 1200 CAN SC Insulin Human Regular 0 Q6 11/12 1200 CAN SC Insulin Human Regular 0 Q6 11/12 1200 DC 11/13 SC 0655 Ipratropium [place] 2.5 ML EVERY 4 HRS/AWAKE 11/10 2000 AC 11/13 INH 0759 Levothyroxine Sodium 0.05 MG MoTuWeThFr@0711/10 0700 AC 11/13 PO 0656 Levothyroxine Sodium 0.075 MG SuSa@0711/09 2145 AC PO Lorazepam 0.5 MG ONCE 11/18 0000 AC PO 11/18 0001 Lorazepam 0.5 MG Q6H 11/17 0000 AC PO 11/17 1801 Lorazepam 1.5 MG Q12H 11/15 0600 AC PO 11/15 1801 Lorazepam 1.5 MG Q6 11/14 0600 AC PO 11/14 1801 Lorazepam 2 MG Q6 11/13 0754 AC PO 11/14 0001 Lorazepam 0 Q1P PRN 11/09 2115 AC 11/13 IV 0007 Magnesium Oxide 400 MG BID 11/12 1015 DC 11/12 PO 11/12 2201 2257 Magnesium Sulfate 1 GM Q2H 11/13 0730 AC Dextrose/Water 100 ML IV 11/13 1129 Magnesium Sulfate 1 GM ONCE ONE 11/12 1745 CAN Dextrose/Water 100 ML IV 11/12 2144 Magnesium Sulfate 1 GM ONCE ONE 11/12 0815 DC Dextrose/Water 100 ML IV 11/12 1214 Mirtazapine 7.5 MG AT BEDTIME 11/09 2200 AC 11/12 PO 2258 Morphine Sulfate 2 MG Q6P PRN 11/10 0030 AC IV Multivitamins 1 TAB DAILY 11/13 1000 AC PO Omeprazole 40 MG DAILY AC 11/10 0700 AC 11/13 PO 0656 Potassium Chloride 40 MEQ ONCE ONE 11/12 1745 DC 11/12 PO 11/12 1746 1823 Potassium Chloride 40 MEQ ONCE ONE 11/12 1015 DC 11/12 PO 11/12 1016 1026 Potassium Phosphate 15 mMol ONE ONE 11/12 1745 DC 11/12 Dextrose/Water 250 ML IV 11/128 1823 Prednisone 50 MG DAILY 11/11 1000 AC 11/12 PO 1019 Thiamine HCl 100 MG DAILY 11/13 1000 AC PO 11/15 1001 Results Last 48 Hrs of Labs/Mics: Laboratory Tests 11/13/16 0440: Anion Gap 10, Estimated GFR > 60, Glucose 163 H, Calcium 8.5, Phosphorus 2.6, Magnesium 1.7, Total Bilirubin 0.5, AST 40 H, ALT 65 H, Albumin 2.9 L, APTT 26, CBC w Diff NO MAN DIFF REQ, RBC 3.47 L, MCV 105.6 H, MCH 35.4 H, RDW 13.7 , MPV 9.7, Gran % 83.3 H, Lymphocytes % 8.1 L, Monocytes % 7.1, Eosinophils % 1.3, Basophils % 0.2, Absolute Granulocytes 8.7 H, Absolute Lymphocytes 0.9 L, Absolute Monocytes 0.7 H, Absolute Eosinophils 0.1, Absolute Basophils 0, PUBS MCHC 33.6 11/12/16 2040: Troponin I 0.58 *H 11/12/16 1815: APTT 41 H 11/12/16 1432: Anion Gap 10, Estimated GFR > 60, Glucose 257 H, Calcium 8.3 L, Phosphorus 1.5 L, Magnesium 1.6, Total Bilirubin 0.6, AST 61 H, ALT 76 H, Troponin I 0.80 *H , Albumin 3.1 L 11/12/16 0900: Lactic Acid 1.5, Troponin I 0.71 *H, Triglycerides 150, TSH 2.830, Free T4 1.40, PT 11.0, INR 1.05 11/12/16 0600: Sodium Cancelled, Potassium Cancelled, Chloride Cancelled, Carbon Dioxide Cancelled, Anion Gap Cancelled, BUN Cancelled, Creatinine Cancelled, BUN/ Creatinine Ratio Cancelled, CBC w Diff Cancelled, WBC Cancelled, RBC Cancelled, Hgb Cancelled, Hct Cancelled, MCV Cancelled, MCH Cancelled, RDW Cancelled, Plt Count Cancelled, MPV Cancelled, PUBS MCHC Cancelled 11/12/16 0355: pH 7.38, pCO2 35, pO2 466 H, HCO3 21, ABG O2 Sat (Measured) 99.0, P-50 (Temp Corrected) Y, Carboxyhemoglobin 0 L, O2 Concentration % 100%, Temperature 97.0, Respiration Rate 24, O2 Delivery Method VISION-FFM, Vent Mode ST, Expiratory Pressure 6, Inspiratory Pressure 18, Phlebotomy Draw Site RIGHT RADIAL 11/12/16 0312: Anion Gap 9, Estimated GFR > 60, BUN/Creatinine Ratio 16.3, Lactic Acid 2.5 H, Magnesium 1.6, Troponin I 0.16 *H, Triglycerides 145, Cholesterol 161, LDL Cholesterol, Calc 85, HDL Cholesterol 47, Cholesterol/HDL Ratio 3.4, CBC w Diff NO MAN DIFF REQ, RBC 3.67 L, MCV 106.6 H, MCH 35.3 H, RDW 14.0, MPV 8.7, Gran % 87.9 H, Lymphocytes % 6.3 L, Monocytes % 4.8, Eosinophils % 0.9, Basophils % 0.1, Absolute Granulocytes 13.9 H, Absolute Lymphocytes 1.0 L, Absolute Monocytes 0.8 H, Absolute Eosinophils 0.1, Absolute Basophils 0, PUBS MCHC 33.1 Recent Imaging Studies: Echocardiogram revealed Very technically difficult study. Left ventricular cavity size normal. Normal left ventricular wall thickness. Endocardial border visualization is limited. Definity contrast was used. Moderate septal hypokinesis with paradoxical sepal motion. Left ventricular ejection fraction is estimated at 30- 35 %. Right ventricle not well visualized, grossly normal. Unable to estimate the right ventricular systolic pressure. No pericardial effusion. CTA of the chest revealed. No CT evidence for acute pulmonary embolism. 2. Right middle lobe opacities are increased compared to the CT from 01/11/2016. Findings may correspond to underlying pneumonia. Given the location, atypical organisms can be considered. 3. Stable mild centrilobular emphysematous changes. 4. Unchanged appearance of left adrenal adenoma. 5. Imaging findings suggestive of acute pancreatitis. Recommend correlation with laboratory tests. VTE: negative Assessment/Plan Assessment/Plan In summary this 71-year-old female was admitted with the following problems #1. Alcohol withdrawal #2. Alcohol cardiomyopathy #3. Pancreatitis #4. Pneumonia #5. Positive troponin felt to be related to supply demand mismatch. Coronary angiography showed noncritical disease. No evidence of ST elevation [place] on EKG. #6. COPD I would continue IV heparin for another 24-48 hours. I would suggest metoprolol tartrate 25 mg twice a day both for cardiomyopathy and for hyperadrenergic state. In issue at the present time his pneumonia probably aspiration related, alcohol withdrawal. Cardiac catheterization is not suggested at this time considering all other issues. Continue telemetry? Yes
--- NOTE | 2016-11-13 10:42 | PN- Pulmonary ---
Subjective HPI/Critical Care Issues: Pt was seen this morning, she was alert, awake, hallucinating and agitated, refused to be examined, telling me to get out of the room immediately to get my supervisors because the men under her blanket is about to make a mess. When asked if she has any pain, she said "nevermind pain, just go!". She also got mad when I was talking to her sitter, and said "no chit chat, go now". Her CIWA 4-12, and she received 6mg IV ativan over 24 hours. Atvan PO taper has been ordered. Her trop is now trending down from max of 0.80. She is still on heparin drip and did receive heparin bolus overnight due to subtherapeutic PTT. WBC improving to 10.4. K 3.6 to 4.4, trop 0.8 to 0.58, glucose 163, 257, mag still 1.7. 2gm mg sulf ordered. Her diet has been advanced to CC2 with novolog tidac. Objective Current Medications: Current Medications Sig/Liz Start time Last Medication Dose Route Stop Time Status Admin Acetaminophen 650 MG Q6P PRN 11/09 2215 AC 11/11 PO 1635 Albuterol Sulfate 3 ML EVERY 4 HRS/AWAKE 11/10 1200 AC 11/13 INH 0759 Aspirin 81 MG DAILY 11/12 1000 AC 11/12 PO 1019 Atorvastatin Calcium 40 MG 1700 11/12 0945 AC 11/12 PO 1717 Cefuroxime Sodium 500 MG Q12 11/11 2200 AC 11/12 PO 2257 Cinacalcet 30 MG DAILY 11/10 1000 AC 11/12 PO 1020 Enoxaparin Sodium 40 MG DAILY 11/10 1000 DC 11/12 SC 1020 Fenofibrate 145 MG DAILY 11/10 1000 AC 11/12 PO 1019 Folic Acid 1 MG DAILY 11/13 1000 AC PO 11/15 1001 Heparin Sodium 3,810 UNIT ONCE ONE 11/13 0530 DC 11/13 (Porcine) IV 11/13 0531 0530 Heparin Sodium 25,000 UNIT Q24H 11/12 1045 AC 11/12 (Porcine) IV 1147 Sodium Chloride 500 ML Insulin Aspart 0 TIDAC 11/13 0800 AC SC Insulin Aspart 0 TIDAC 11/12 1200 CAN SC Insulin Human Regular 0 Q6 11/12 1200 DC 11/13 SC 0655 Ipratropium [place] 2.5 ML EVERY 4 HRS/AWAKE 11/10 2000 AC 11/13 INH 0759 Levothyroxine Sodium 0.05 MG MoTuWeThFr@0700 11/10 0700 AC 11/13 PO 0656 Levothyroxine Sodium 0.075 MG SuSa@0700 11/09 2145 AC PO Lorazepam 0.5 MG ONCE 11/18 0000 AC PO 11/18 0001 Lorazepam 0.5 MG Q6H 11/17 0000 AC PO 11/17 1801 Lorazepam 1.5 MG Q12H 11/15 0600 AC PO 11/15 1801 Lorazepam 1.5 MG Q6 11/14 0600 AC PO 11/14 1801 Lorazepam 2 MG Q6 11/13 0754 AC PO 11/14 0001 Lorazepam 0 Q1P PRN 11/09 2115 AC 11/13 IV 0007 Magnesium Oxide 400 MG BID 11/12 1015 DC 11/12 PO 11/12 2201 2257 Magnesium Sulfate 1 GM Q2H 11/13 0730 AC Dextrose/Water 100 ML IV 11/13 1129 Magnesium Sulfate 1 GM ONCE ONE 11/12 1745 CAN Dextrose/Water 100 ML IV 11/12 2144 Magnesium Sulfate 1 GM ONCE ONE 11/12 0815 DC Dextrose/Water 100 ML IV 11/12 1214 Metoprolol Tartrate 25 MG BID 11/13 1000 AC PO Mirtazapine 7.5 MG AT BEDTIME 11/09 2200 AC 11/12 PO 2258 Morphine Sulfate 2 MG Q6P PRN 11/10 0030 AC IV Multivitamins 1 TAB DAILY 11/13 1000 AC PO Omeprazole 40 MG DAILY AC 11/10 0700 AC 11/13 PO 0656 Potassium Chloride 40 MEQ ONCE ONE 11/12 1745 DC 11/12 PO 11/12 1746 1823 Potassium Phosphate 15 mMol ONE ONE 11/12 1745 DC 11/12 Dextrose/Water 250 ML IV 11/12 2148 1823 Prednisone 50 MG DAILY 11/11 1000 AC 11/12 PO 1019 Thiamine HCl 100 MG DAILY 11/13 1000 AC PO 11/15 1001 Vital Signs & I&O Last 24 Hrs of Vitals and I&O: Vital Signs Date Time Temp Pulse Resp B/P Pulse O2 O2 Flow FiO2 Ox Delivery Rate 11/13 0831 109 96 11/13 0820 95 Nasal 3.0L Cannula 11/13 0604 95 95 11/13 0600 98 29 143/115 11/13 0400 98.5 24 24 134/85 11/13 0400 97 BIPAP 30% 11/13 0313 87 96 11/13 0200 88 24 121/75 11/13 0018 110 95 11/13 0015 101 98 11/13 0000 97.0 100 30 122/81 11/13 0000 97.0 108 29 122/81 95 BIPAP 30% 11/13 0000 95 BIPAP 30% 11/12 2200 108 30 122/70 11/12 2150 105 94 11/13 1999 97.9 111 34 144/105 11/13 1999 100 BIPAP 40% 11/12 1837 106 94 11/12 1617 95 BIPAP 40% 11/12 1616 104 95 11/12 1600 97.6 105 29 120/78 11/12 1600 97 BIPAP 40% 11/12 1600 97.6 105 29 120/78 97 BIPAP 40% 11/12 1400 97.8 110 26 107/79 11/12 1230 115 97 11/12 1201 94 Nasal 5.0L Cannula 11/12 1200 97.8 112 28 120/70 11/12 1200 94 Nasal 5.0L Cannula Intake & Output 11/13 1600 11/13 0800 11/13 0000 Intake Total 285 Output Total 300 Balance -15 Intake, IV 165 Intake, Oral 120 Number 0 Bowel Movements Output, Urine 300 Impression/Plan Impression/Plan Impression/Plan: SIGNIFICANT DATA Patient has remained afebrile Continues to be on and off BiPAP Did diurese with 40 mg of Lasix yesterday Continues to be on heparin Echocardiogram noted which is very significantly low BUN/creatinine stable lipase was elevated before Troponin 0.58 White count 10.4 hemoglobin 12.3 Previous INR was 1 Previous ABG did not reveal hyper Carby a Chest x-ray yesterday showed pulmonary embolism Physical Exam General Appearance Alert, Oriented X2, Cooperative, Moderate Distress dyspnea Skin No Rashes, No Significant Lesion HEENT Atraumatic, PERRLA, EOMI, Mucous Membr. moist/pink Neck Supple, +2 Carotid Pulse wo Bruit Lymphatic Cervical nl Cardiovascular Tachycarid with normal S1/S2 Lungs Diffuse wheezing in all lung bridges with decreased air entry bilaterally. Decreased basal breath sounds. with crackles Abdomen Normal Bowel Sounds, Soft, Petechia noted on abdomen., tenderness to palpation of epigastric region Neurological Normal Speech, Normal Tone Extremities No Clubbing, No Cyanosis, No Edema, Normal Pulses, No Tenderness/ Swelling Vascular Pulses Symmetrical This is a 71-year-old lady with history of significant smoking, severe COPD with asthmatic component, recurrent respiratory failure with COPD exacerbation, more than [id number] smoking history, FEV1 of 0.8 L on 2-3 L nasal cannula at home usually, still ongoing smoking, previous history of significant alcoholism now has been drinking, depression, hypothyroidism on adequate supplementation, hypertension, previous liver failure with alcoholic hepatitis which seems to have resolved, Now with abd pain and wheezing * Acute hypoxic resp failure with resolving Acute pulm edema in a lady with high risk for ihd with previous non obs coronary disease, after fluid resusitation for pancreatitis, Acute coronary syndrome could still be a posibility but likely etoh cardiomyopathy * Significant acute pancreatitis with ongoing drinking slowly improving * Severe COPD with acute exacerbation of COPD * Right middle lobe infiltrate unlikely to be pneumonia but cannot rule out * Significant alcoholism with active withdrawal * Sinus tachycardia * Sig hypercalcemia most likely related to multiple issues patient has been on cinacalcet * Ongoing nicotine use * Hypothyroidism on appropriate supplementation * Hyperlipidemia * Previous history of liver failure / Immunosuppressed state due to alcoholism / Significant fatty liver / Glucose intolerance and B12 deficiency / Peripheral neuropathy. / Previous nonischemic heart disease with previous coronary angiogram which was unremarkable but patient does have cardiomyopathy probably related to previous alcoholism which is mild, watch for chf RECOMMENDATION * COnt gentle diuresis give one more dose of iv lasix today at 40 and rpt this pm * ASa statin, * Ativan prn * Continue nebulizer therapy with ipratropium and albuterol every 8 hours * Sugar control * Prednisone and Ceftin 500 twice a day. * Continue heparin * Continue her Levoxyl * Keep the head of bed elevated * BIPAP prn, or high flow if needed PT is critically ill tts 36 mins
[2016-11-13 14:24] LABS: PTT 67 SEC (25-37)
[2016-11-14] VITALS (9 sets, daily range): BP systolic 102–129; BP diastolic 60–78
[2016-11-14 00:57] LABS: PTT 34 SEC (25-37)
[2016-11-14 04:59] LABS: ABSOLUTE BASOPHIL COUNT 0 /CUMM (0.0-0.2); ABSOLUTE EOSINOPHIL COUNT 0.1 /CUMM (0.0-0.7); ABSOLUTE LYMPH COUNT 1.2 /CUMM (1.2-3.4); ABSOLUTE MONOCYTE COUNT 0.9 /CUMM (0.10-0.60); BASOPHIL % 0.3 % (0.0-2.0); EOSINOPHIL % 0.6 % (0-5); GRANULOCYTE % 78.2 % (42.2-75.2); HEMATOCRIT 37.1 % (37-47); MEAN CORPUSCULAR HGB 35.7 PG (27.0-31.0); MEAN CORPUSCULAR HGB CONC 33.6 G/DL (33.0-37.0); MEAN CORPUSCULAR VOLUME 106.3 FL (81.0-99.0); MEAN PLATELET VOLUME 9.8 FL (7.4-10.4); PLATELET COUNT 188 /CUMM (130-400); RBC DISTRIBUTION WIDTH 13.6 % (11.5-14.5); RED BLOOD CELL CT 3.49 /CUMM (4.20-5.40); WHITE BLOOD CELL COUNT 10.2 /CUMM (4.8-10.8)
--- NOTE | 2016-11-14 07:04 | PN- Resident CRCU ---
Subjective HPI/CRCU Issues: Pt was asleep but arousable. CIWA 4-15, received 9mg PO ativan and 4 mg IV ativan over 24 hrs. Glucose 251,298,233,194, increase novolog to medium sliding scale. Na 140 --> 134, K 3.8, mg 1.7, repleted 24 Hour Events: Max temp 98.8 HR 62-[address] RR 20-25 Systolic BP 101-134 Diastolic BP 57-97 3L NC Objective Vital Signs & I&O Last 8 Hrs of Vitals and I&O: Intake & Output 11/14 1600 11/14 0800 11/14 0000 Intake Total 427.2 623.2 Output Total 1350 350 Balance -922.8 273.2 Intake, IV 207.2 203.2 Intake, Oral 220 420 Number 0 0 Bowel Movements Output, Urine 1350 350 Laboratory Tests 11/14 11/14 11/14 11/13 0730 0426 0031 1305 Chemistry Sodium (137 - 145 mmol/L) 134 L Potassium (3.5 - 5.1 mmol/L) 3.8 Chloride (98 - 107 mmol/L) 100 Carbon Dioxide (22 - 30 mmol/L) 27 Anion Gap (5 - 16) 7 BUN (7 - 17 mg/dL) 21 H Creatinine (0.5 - 1.0 mg/dL) 0.8 Estimated GFR (>60 ml/min) > 60 Glucose (65 - 99 mg/dL) 251 H Calcium (8.4 - 10.2 mg/dL) 8.4 Phosphorus (2.5 - 4.5 mg/dL) 3.3 Magnesium (1.6 - 2.3 mg/dL) 1.7 Total Bilirubin (0.2 - 1.3 mg/dL) 0.6 AST (14 - 36 U/L) 22 ALT (9 - 52 U/L) 59 H Albumin (3.5 - 5.0 g/dL) 3.0 L Coagulation APTT (25 - 37 SEC) > 120 *H 34 67 H Hematology CBC w Diff NO MAN DIFF REQ WBC (4.8 - 10.8 /CUMM) 10.2 RBC (4.20 - 5.40 /CUMM) 3.49 L Hgb (12.0 - 16.0 G/DL) 12.4 Hct (37 - 47 %) 37.1 MCV (81.0 - 99.0 FL) 106.3 H MCH (27.0 - 31.0 PG) 35.7 H RDW (11.5 - 14.5 %) 13.6 Plt Count (130 - 400 /CUMM) 188 MPV (7.4 - 10.4 FL) 9.8 Gran % (42.2 - 75.2 %) 78.2 H Lymphocytes % (20.5 - 51.1 %) 12.1 L Monocytes % (1.7 - 9.3 %) 8.8 Eosinophils % (0 - 5 %) 0.6 Basophils % (0.0 - 2.0 %) 0.3 Absolute Granulocytes (1.4 - 6.5 /CUMM) 8.0 H Absolute Lymphocytes (1.2 - 3.4 /CUMM) 1.2 Absolute Monocytes (0.10 - 0.60 /CUMM) 0.9 H Absolute Eosinophils (0.0 - 0.7 /CUMM) 0.1 Absolute Basophils (0.0 - 0.2 /CUMM) 0 PUBS MCHC (33.0 - 37.0 G/DL) 33.6 Vital Signs Date Time Temp Pulse Resp B/P Pulse O2 O2 Flow FiO2 Ox Delivery Rate 11/14 0800 92 Nasal 3.0L Cannula 11/14 0800 98.0 65 20 124/69 92 Nasal 3.0L Cannula 11/14 0753 97 Nasal 3.0L Cannula 11/14 0600 98.7 68 14 114/62 11/14 0400 98.7 74 20 126/75 11/14 0400 96 Nasal 3.0L Cannula 11/14 0300 98.5 80 25 129/69 11/14 0200 98.7 80 25 119/78 11/14 0009 87 97 11/14 0000 98.7 86 25 110/60 11/14 0000 95 Nasal 3.0L Cannula 11/14 0000 98.7 86 25 110/60 95 Nasal 3.0L Cannula 11/13 2256 89 114/70 11/13 2205 71 95 11/13 2200 97.0 88 32 101/66 11/14 1999 96.9 89 21 108/70 11/14 1999 96 Nasal 3.0L Cannula 11/13 1702 95 Nasal 3.0L Cannula 11/13 1340 95 130/84 11/13 1230 98.8 90 20 110/70 11/13 1230 98 BIPAP 11/13 1108 99 92 Exam General Appearance: asleep, snoring loudly, sitter noted pt did not sleep all night Respiratory: difficult to assess due to loud snoring Gastrointestinal: soft, non-tender Current Medications: Current Medications Sig/Liz Start time Last Medication Dose Route Stop Time Status Admin Acetaminophen 650 MG Q6P PRN 11/09 2215 AC 11/11 PO 1635 Albuterol Sulfate 3 ML EVERY 4 HRS/AWAKE 11/10 1200 AC 11/14 INH 0751 Aspirin 81 MG DAILY 11/12 1000 AC 11/14 PO 1054 Atorvastatin Calcium 40 MG 1700 11/12 0945 AC 11/13 PO 1754 Cefuroxime Sodium 500 MG Q12 11/11 2200 AC 11/14 PO 11/18 1001 1054 Cinacalcet 30 MG DAILY 11/10 1000 AC 11/14 PO 1055 Fenofibrate 145 MG DAILY 11/10 1000 AC 11/14 PO 1054 Folic Acid 1 MG DAILY 11/13 1000 AC 11/14 PO 11/15 1001 1055 Furosemide 40 MG ONCE ONE 11/14 1015 DC 11/14 IV 11/14 1016 1034 Furosemide 40 MG 7:30 AM, & 4:30 PM 11/13 1045 DC 11/13 IV 11/13 1631 2206 Heparin Sodium 5,000 UNIT .STK-MED ONE 11/14 0200 DC (Porcine) IV 11/14 0201 Heparin Sodium 3,810 UNIT ONCE ONE 11/14 0130 DC 11/14 (Porcine) IV 11/14 0131 0205 Heparin Sodium 25,000 UNIT Q24H 11/12 1045 AC 11/13 (Porcine) IV 1600 Sodium Chloride 500 ML Insulin Aspart 0 AT BEDTIME 11/14 2200 AC SC Insulin Aspart 0 TIDAC/HS 11/14 0800 DC 11/13 SC 2300 Insulin Aspart 0 TIDAC 11/14 0800 AC 11/14 SC 0812 Insulin Aspart 0 TIDAC 11/13 0800 DC 11/13 SC 1754 Ipratropium [place] 2.5 ML EVERY 4 HRS/AWAKE 11/10 2000 AC 11/14 INH 0751 Levothyroxine Sodium 0.05 MG MoTuWeThFr@0700 11/10 0700 AC 11/14 PO 1054 Levothyroxine Sodium 0.075 MG SuSa@0700 11/09 2145 AC PO Lorazepam 0.5 MG ONCE 11/18 0000 AC PO 11/18 0001 Lorazepam 0.5 MG Q6H 11/17 0000 AC PO 11/17 1801 Lorazepam 1.5 MG Q12H 11/15 0600 AC PO 11/15 1801 Lorazepam 1.5 MG Q6 11/14 0600 AC PO 11/14 1801 Lorazepam 2 MG 1300,1800,2300,0400 11/13 2300 DC 11/14 PO 11/14 0410 0415 Lorazepam 2 MG Q6 11/13 0754 DC 11/13 PO 11/14 0001 1837 Lorazepam 0 Q1P PRN 11/09 2115 AC 11/14 IV 0249 Magnesium Sulfate 1 GM ONCE ONE 11/14 0730 AC 11/14 Dextrose/Water 100 ML IV 11/14 1129 0813 Magnesium Sulfate 1 GM Q2H 11/13 0730 DC 11/13 Dextrose/Water 100 ML IV 11/13 1129 1500 Metoprolol Tartrate 25 MG BID 11/13 1000 AC 11/14 PO 1055 Mirtazapine 7.5 MG AT BEDTIME 11/09 2200 AC 11/13 PO 2208 Morphine Sulfate 2 MG Q6P PRN 11/10 0030 AC IV Multivitamins 1 TAB DAILY 11/13 1000 AC 11/14 PO 1055 Omeprazole 40 MG DAILY AC 11/10 0700 AC 11/13 PO 0656 Potassium Chloride 40 MEQ ONCE ONE 11/14 0730 DC 11/14 PO 11/14 0731 1054 Prednisone 40 MG DAILY 11/15 1000 CAN PO Prednisone 40 MG DAILY 11/14 1016 AC 11/14 PO 1054 Prednisone 50 MG DAILY 11/11 1000 DC 11/13 PO 1300 Thiamine HCl 100 MG DAILY 11/13 1000 AC 11/14 PO 11/15 1001 1055 Impression/Plan Impression/Problem List Impression: 71-year-old female, active smoker with past medical history of COPD on 2.5 L nocturnal O2, severe emphysema with asthmatic component, alcohol dependence with h/o DT's, alcoholic cardiomyopathy and pancreatitis, HTN, hypercalcemia on cinacalcet, hypothyroidism, B12 deficiency with peripheral neuropathy, admitted to telemetry for acute on chronic respiratory failure likely secondary to COPD exacerbation and PNA, with sinus tachycardia, PE ruled out by CTA, subsequently found to have pancreatitis, then transferred to ICU for flash pulmonary edema, positive troponin, concerning for NSTEMI, hypotension. She is also withdrawing from alcohol. Active issues: # COPD exacerbation # Pneumonia # Positive troponin, NSTEMI vs demand ischemia # Flash pulmonary edema, hx of alcoholic cardiomyopathy # Hypotension # Sinus tachycardia # Alcohol withdrawal # Pancreatitis UE restrain [facility] # Alcohol withdrawal - Heavy alcohol use with serum alcohol 11 on admission * PO ativan taper started. IV ativan PRN * Folic acid, thiamine, multivitamin Respiratory: # COPD exacerbation # Pneumonia * Bipap as needed, hiflow oxygen as needed * Continue ceftin 500 bid for 7 days * Prednisone 50 mg decreased to 40 mg daily (taper in 7 days) Cardiovascular # Positive troponin, most likely demand ischemia given significant tachycardia, with flash pulmonary edema, concerning for NSTEMI, hx of alcoholic cardiomyopathy - Stool guaiac negative - 11/12/16 echocardiogram: Endocardial border visualization is limited. Definity contrast was used. Moderate septal hypokinesis with paradoxical sepal motion. Left ventricular ejection fraction is estimated at 30- 35 %. * Max trop 0.8, has trended down * Heparin drip started as per Dr. Soto (abnormal septal movements on echocardiogram). Continue heparin drip * Aspirin and statin started, monitor liver function * If pt cannot consent, please call Sun, her niece, at her cell, . She is agreeable to transferring pt to cath if need be. # Flash pulmonary edema - 11/12: Given 1 X 20 mg IV lasix due to hypotension, then another 1 X 40 mg IV lasix once BP improved. 11/13: 2 X 40 mg IV lasix . 11/14: 1 X 40 mg IV lasix. # Hypotension down to 80 over doppler (resolved) - Could be due to metoprolol given for tachycardia - Lactic acid 2.5 --> 1.5. Fluids stopped due to flash pulmonary edema * Continue to monitor BP closely # Sinus tachycardia (up to 140s) * Metoprolol 25 mg BID started on 11/13 Alimentary # Pancreatitis * Can give low dose morphine Endocrine # Hypercalcemia * Will continue her Cinacalcet. # Hyperglycemia. - Her HbA1c 5.6 * Patient is kept on fingersticks * On novolog tidac # Hx of hypothyroidism - TSH: 2.830 /FT4: 1.4 * Continue levothyroxine Metabolic # Hypomagnesemia - Mag 0.9 on admission, probably secondary to alcohol use - Keep Mg > 2 * Replete as needed # Hypokalemia - Keep K > 4 * Replete as needed Diet: CC2 DVT ppx: alps and heparin drip FULL CODE Consults: cardio, pulm Labs: BEP mag and phos electrolyte abnormality, alcoholic Problem List: 1. Alcohol withdrawal Pain Ratin Tomorrow's Labs & Rationales: BEP mag and phos electrolyte abnormality, alcoholic Plan DVT/Prophylaxis: mechanical, pharmacological
[2016-11-14 09:40] LABS: PTT > 120 SEC (25-37)
--- NOTE | 2016-11-14 09:56 | PN- CRCU ---
Subjective HPI/Critical Care Issues: Fast asleep today much improved Easily arousable Afebrile next and review of symptoms could not be obtained Significant data reviewed her amylase lipase were high upon admission white count 10.2 hemoglobin 12.4 MCV still elevated Her other blood work reviewed as noted below LFTs were elevated troponin 0.58 which is trending down chest x-ray from 2 days ago showed CHF patient is now off BiPAP Objective Current Medications: Current Medications Sig/Liz Start time Last Medication Dose Route Stop Time Status Admin Acetaminophen 650 MG Q6P PRN 11/09 2215 AC 11/11 PO 1635 Albuterol Sulfate 3 ML EVERY 4 HRS/AWAKE 11/10 1200 AC 11/14 INH 0751 Aspirin 81 MG DAILY 11/12 1000 AC 11/13 PO 1259 Atorvastatin Calcium 40 MG 1700 11/12 0945 AC 11/13 PO 1754 Cefuroxime Sodium 500 MG Q12 11/11 2200 AC 11/13 PO 2206 Cinacalcet 30 MG DAILY 11/10 1000 AC 11/13 PO 1300 Fenofibrate 145 MG DAILY 11/10 1000 AC 11/13 PO 1259 Folic Acid 1 MG DAILY 11/13 1000 AC 11/13 PO 11/15 1001 1339 Furosemide 40 MG 7:30 AM, & 4:30 PM 11/13 1045 DC 11/13 IV 11/13 1631 2206 Heparin Sodium 3,810 UNIT ONCE ONE 11/14 0130 DC 11/14 (Porcine) IV 11/14 0131 0205 Heparin Sodium 25,000 UNIT Q24H 11/12 1045 AC 11/13 (Porcine) IV 1600 Sodium Chloride 500 ML Insulin Aspart 0 AT BEDTIME 11/14 2200 AC SC Insulin Aspart 0 TIDAC/HS 11/14 0800 DC 11/13 SC 2300 Insulin Aspart 0 TIDAC 11/14 0800 AC 11/14 SC 0812 Insulin Aspart 0 TIDAC 11/13 0800 DC 11/13 SC 1754 Ipratropium [place] 2.5 ML EVERY 4 HRS/AWAKE 11/10 2000 AC 11/14 INH 0751 Levothyroxine Sodium 0.05 MG MoTuWeThFr@11/10 0700 AC 11/13 PO 0656 Levothyroxine Sodium 0.075 MG SuSa@11/09 2145 AC PO Lorazepam 0.5 MG ONCE 11/18 0000 AC PO 11/18 0001 Lorazepam 0.5 MG Q6H 11/17 0000 AC PO 11/17 1801 Lorazepam 1.5 MG Q12H 11/15 0600 AC PO 11/15 1801 Lorazepam 1.5 MG Q6 11/14 0600 AC PO 11/14 1801 Lorazepam 2 MG 1300,1800,2300,0400 11/13 2300 DC 11/14 PO 11/14 0410 0415 Lorazepam 2 MG Q6 11/13 0754 DC 11/13 PO 11/14 0001 1837 Lorazepam 0 Q1P PRN 11/09 2115 AC 11/14 IV 0249 Magnesium Sulfate 1 GM ONCE ONE 11/14 0730 AC 11/14 Dextrose/Water 100 ML IV 11/14 1129 0813 Magnesium Sulfate 1 GM Q2H 11/13 0730 DC 11/13 Dextrose/Water 100 ML IV 11/13 1129 1500 Metoprolol Tartrate 25 MG BID 11/13 1000 AC 11/13 PO 2256 Mirtazapine 7.5 MG AT BEDTIME 11/09 2200 AC 11/13 PO 2208 Morphine Sulfate 2 MG Q6P PRN 11/10 0030 AC IV Multivitamins 1 TAB DAILY 11/13 1000 AC 11/13 PO 1339 Omeprazole 40 MG DAILY AC 11/10 0700 AC 11/13 PO 0656 Potassium Chloride 40 MEQ ONCE ONE 11/14 0730 DC PO 11/14 0731 Prednisone 50 MG DAILY 11/11 1000 AC 11/13 PO 1300 Thiamine HCl 100 MG DAILY 11/13 1000 AC 11/13 PO 11/15 1001 1339 Vital Signs & I&O Last 24 Hrs of Vitals and I&O: Vital Signs Date Time Temp Pulse Resp B/P Pulse O2 O2 Flow FiO2 Ox Delivery Rate 11/14 0800 92 Nasal 3.0L Cannula 11/14 0800 98.0 65 20 124/69 92 Nasal 3.0L Cannula 11/14 0753 97 Nasal 3.0L Cannula 11/14 06 98.7 68 14 114/62 11/14 0400 98.7 74 20 126/75 11/14 0400 96 Nasal 3.0L Cannula 11/14 0300 98.5 80 25 129/69 11/14 0200 98.7 80 25 119/78 11/14 0009 87 97 11/14 0000 98.7 86 25 110/60 11/14 0000 95 Nasal 3.0L Cannula 11/14 0000 98.7 86 25 110/60 95 Nasal 3.0L Cannula 11/13 2256 89 114/70 11/13 2205 71 95 11/13 2200 97.0 88 32 101/66 11/14 1999 96.9 89 21 108/70 11/14 1999 96 Nasal 3.0L Cannula 11/13 1702 95 Nasal 3.0L Cannula 11/13 1340 95 130/84 11/13 1230 98.8 90 20 110/70 11/13 1230 98 BIPAP 11/13 1108 99 92 Intake & Output 11/14 1600 11/14 0800 11/14 0000 Intake Total 427.2 623.2 Output Total 1350 350 Balance -922.8 273.2 Intake, IV 207.2 203.2 Intake, Oral 220 420 Number 0 0 Bowel Movements Output, Urine 1350 350 Impression/Plan Impression/Plan Impression/Plan: Physical Exam General Appearance Alert, Oriented X2, Cooperative, Moderate Distress dyspnea Skin No Rashes, No Significant Lesion HEENT Atraumatic, PERRLA, EOMI, Mucous Membr. moist/pink Neck Supple, +2 Carotid Pulse wo Bruit Lymphatic Cervical nl Cardiovascular Tachycarid with normal S1/S2 Lungs Diffuse wheezing in all lung bridges with decreased air entry bilaterally. Decreased basal breath sounds. with crackles Abdomen Normal Bowel Sounds, Soft, Petechia noted on abdomen., tenderness to palpation of epigastric region Neurological Normal Speech, Normal Tone Extremities No Clubbing, No Cyanosis, No Edema, Normal Pulses, No Tenderness/ Swelling Vascular Pulses Symmetrical This is a 71-year-old lady with history of significant smoking, severe COPD with asthmatic component, recurrent respiratory failure with COPD exacerbation, more than [id number] smoking history, FEV1 of 0.8 L on 2-3 L nasal cannula at home usually, still ongoing smoking, previous history of significant alcoholism now has been drinking, depression, hypothyroidism on adequate supplementation, hypertension, previous liver failure with alcoholic hepatitis which seems to have resolved, Now with abd pain and wheezing * ResolvingAcute hypoxic resp failure with resolving Acute pulm edema in a lady with high risk for ihd with previous non obs coronary disease, after fluid resusitation for pancreatitis, Acute coronary syndrome could still be a posibility but likely etoh cardiomyopathy * Significant acute pancreatitis with ongoing drinking slowly improving * Severe COPD with acute exacerbation of COPD * Right middle lobe infiltrate unlikely to be pneumonia but cannot rule out * Significant alcoholism with active withdrawal * Sinus tachycardia * Resolving hypercalcemia most likely related to multiple issues patient has been on cinacalcet * Ongoing nicotine use * Hypothyroidism on appropriate supplementation * Hyperlipidemia * Previous history of liver failure / Immunosuppressed state due to alcoholism / Significant fatty liver / Glucose intolerance and B12 deficiency / Peripheral neuropathy. / Previous nonischemic heart disease with previous coronary angiogram which was unremarkable but patient does have cardiomyopathy probably related to previous alcoholism which is mild, watch for chf RECOMMENDATION * COnt gentle diuresis give lasix this am * ASa statin, * Ativan prn * Continue nebulizer therapy with ipratropium and albuterol every 8 hours * Sugar control * Prednisone reduce to 40 and taper in 7 days and Ceftin 500 twice a day (total 7 days) * Heparin per cardio * Continue her Levoxyl * Keep the head of bed elevated * BIPAP prn, or high flow if needed * PO thiamine, folic acid and b12 daily PT is critically ill tts 38mins
--- NOTE | 2016-11-14 12:05 | PN- Cardiology ---
Subjective Subjective: Lethargic but arousable. Remains in soft restraints. Objective Vital Signs and I&Os Vital Signs Date Time Temp Pulse Resp B/P Pulse O2 O2 Flow FiO2 Ox Delivery Rate 11/14 0800 92 Nasal 3.0L Cannula 11/14 0800 98.0 65 20 124/69 92 Nasal 3.0L Cannula 11/14 0753 97 Nasal 3.0L Cannula 11/14 0600 98.7 68 14 114/62 11/14 0400 98.7 74 20 126/75 11/14 0400 96 Nasal 3.0L Cannula 11/14 0300 98.5 80 25 129/69 11/14 0200 98.7 80 25 119/78 11/14 0009 87 97 11/14 0000 98.7 86 25 110/60 11/14 0000 95 Nasal 3.0L Cannula 11/14 0000 98.7 86 25 110/60 95 Nasal 3.0L Cannula 11/13 2256 89 114/70 11/13 2205 71 95 11/13 2200 97.0 88 32 101/66 11/14 1999 96.9 89 21 108/70 11/13 2000 96 Nasal 3.0L Cannula 11/13 1702 95 Nasal 3.0L Cannula 11/13 1340 95 130/84 11/13 1230 98.8 90 20 110/70 11/13 1230 98 BIPAP Intake & Output 11/14 1600 11/14 0800 11/14 0000 11/13 1600 11/13 0800 11/13 0000 Intake Total 427.2 623.2 285 Output Total 1350 350 300 Balance -922.8 273.2 -15 Intake, IV 207.2 203.2 165 Intake, Oral 220 420 120 Number 0 0 0 Bowel Movements Output, Urine 1350 350 300 Physical Exam: General: no apparent distress. Lethargic. Eyes: No obvious scleral icterus. HEENT: No jugular venous distention or abnormal jugular venous pulsations. Cardiovascular: Normal intensity S1/S2. Regular Respiratory: No rales or rhonchi Abdomen: Distended without guarding Musculoskeletal: No clubbing or cyanosis noted, no edema Skin: Warm Lymph: No gross lymphadenopathy. Current Medications: Current Medications Sig/Liz Start time Last Medication Dose Route Stop Time Status Admin Acetaminophen 650 MG Q6P PRN 11/09 2215 AC 11/11 PO 1635 Albuterol Sulfate 3 ML EVERY 4 HRS/AWAKE 11/10 1200 AC 11/14 INH 1110 Aspirin 81 MG DAILY 11/12 1000 AC 11/14 PO 1054 Atorvastatin Calcium 40 MG 1700 11/12 0945 AC 11/13 PO 1754 Cefuroxime Sodium 500 MG Q12 11/11 2200 AC 11/14 PO 11/18 1001 1054 Cinacalcet 30 MG DAILY 11/10 1000 AC 11/14 PO 1055 Fenofibrate 145 MG DAILY 11/10 1000 AC 11/14 PO 1054 Folic Acid 1 MG DAILY 11/13 1000 AC 11/14 PO 11/15 1001 1055 Furosemide 40 MG ONCE ONE 11/14 1015 DC 11/14 IV 11/14 1016 1034 Furosemide 40 MG 7:30 AM, & 4:30 PM 11/13 1045 DC 11/13 IV 11/13 1631 2206 Heparin Sodium 5,000 UNIT .STK-MED ONE 11/14 0200 DC (Porcine) IV 11/14 0201 Heparin Sodium 3,810 UNIT ONCE ONE 11/14 0130 DC 11/14 (Porcine) IV 11/14 0131 0205 Heparin Sodium 25,000 UNIT Q24H 11/12 1045 AC 11/13 (Porcine) IV 1600 Sodium Chloride 500 ML Insulin Aspart 0 AT BEDTIME 11/14 2200 AC SC Insulin Aspart 0 TIDAC/HS 11/14 0800 DC 11/13 SC 2300 Insulin Aspart 0 TIDAC 11/14 0800 AC 11/14 SC 0812 Insulin Aspart 0 TIDAC 11/13 0800 DC 11/13 SC 1754 Ipratropium [place] 2.5 ML EVERY 4 HRS/AWAKE 11/10 2000 AC 11/14 INH 1110 Levothyroxine Sodium 0.05 MG MoTuWeThFr@0711/10 0700 AC 11/14 PO 1054 Levothyroxine Sodium 0.075 MG SuSa@11/09 2145 AC PO Lorazepam 0.5 MG ONCE 11/18 0000 AC PO 11/18 0001 Lorazepam 0.5 MG Q6H 11/17 0000 AC PO 11/17 1801 Lorazepam 1.5 MG Q12H 11/15 0600 AC PO 11/15 1801 Lorazepam 1.5 MG Q6 11/14 0600 AC PO 11/14 1801 Lorazepam 2 MG 1300,1800,2300,0400 11/13 2300 DC 11/14 PO 11/14 0410 0415 Lorazepam 2 MG Q6 11/13 0754 DC 11/13 PO 11/14 0001 1837 Lorazepam 0 Q1P PRN 11/09 2115 AC 11/14 IV 0249 Magnesium Sulfate 1 GM ONCE ONE 11/14 0730 DC 11/14 Dextrose/Water 100 ML IV 11/14 1129 0813 Metoprolol Tartrate 25 MG BID 11/13 1000 AC 11/14 PO 1055 Mirtazapine 7.5 MG AT BEDTIME 11/09 2200 AC 11/13 PO 2208 Morphine Sulfate 2 MG Q6P PRN 11/10 0030 AC IV Multivitamins 1 TAB DAILY 11/13 1000 AC 11/14 PO 1055 Omeprazole 40 MG DAILY AC 11/10 0700 AC 11/13 PO 0656 Potassium Chloride 40 MEQ ONCE ONE 11/14 0730 DC 11/14 PO 11/14 0731 1054 Prednisone 40 MG DAILY 11/15 1000 CAN PO Prednisone 40 MG DAILY 11/14 1016 AC 11/14 PO 1054 Prednisone 50 MG DAILY 11/11 1000 DC 11/13 PO 1300 Thiamine HCl 100 MG DAILY 11/13 1000 AC 11/14 PO 11/15 1001 1055 Results Last 48 Hrs of Labs/Mics: Laboratory Tests 11/14/16 0730: APTT > 120 *H 11/14/16 0426: Anion Gap 7, Estimated GFR > 60, Glucose 251 H, Calcium 8.4, Phosphorus 3.3, Magnesium 1.7, Total Bilirubin 0.6, AST 22, ALT 59 H, Albumin 3.0 L, CBC w Diff NO MAN DIFF REQ, RBC 3.49 L, MCV 106.3 H, MCH 35.7 H, RDW 13.6, MPV 9.8, Gran % 78.2 H, Lymphocytes % 12.1 L, Monocytes % 8.8, Eosinophils % 0.6, Basophils % 0.3, Absolute Granulocytes 8.0 H, Absolute Lymphocytes 1.2, Absolute Monocytes 0.9 H, Absolute Eosinophils 0.1, Absolute Basophils 0, PUBS MCHC 33.6 11/14/16 0031: APTT 34 11/13/16 1305: APTT 67 H 11/13/16 0440: Anion Gap 10, Estimated GFR > 60, Glucose 163 H, Calcium 8.5, Phosphorus 2.6, Magnesium 1.7, Total Bilirubin 0.5, AST 40 H, ALT 65 H, Albumin 2.9 L, APTT 26, CBC w Diff NO MAN DIFF REQ, RBC 3.47 L, MCV 105.6 H, MCH 35.4 H, RDW 13.7 , MPV 9.7, Gran % 83.3 H, Lymphocytes % 8.1 L, Monocytes % 7.1, Eosinophils % 1.3, Basophils % 0.2, Absolute Granulocytes 8.7 H, Absolute Lymphocytes 0.9 L, Absolute Monocytes 0.7 H, Absolute Eosinophils 0.1, Absolute Basophils 0, PUBS MCHC 33.6 11/12/16 2040: Troponin I 0.58 *H 11/12/16 1815: APTT 41 H 11/12/16 1432: Anion Gap 10, Estimated GFR > 60, Glucose 257 H, Calcium 8.3 L, Phosphorus 1.5 L, Magnesium 1.6, Total Bilirubin 0.6, AST 61 H, ALT 76 H, Troponin I 0.80 *H , Albumin 3.1 L Recent Imaging Studies: Telemetry tracings were personally reviewed and shows sinus rhythm with a short SVT burst Echo Very technically difficult study. Left ventricular cavity size normal. Normal left ventricular wall thickness. Endocardial border visualization is limited. Definity contrast was used. Moderate septal hypokinesis with paradoxical sepal motion. Left ventricular ejection fraction is estimated at 30- 35 %. Right ventricle not well visualized, grossly normal. Unable to estimate the right ventricular systolic pressure. No pericardial effusion. Assessment/Plan Assessment/Plan 1. EtOH pancreatitis 2. Possible pneumonia 3. New cardiomyopathy of unclear etiology, differential includes EtOH cardiomyopathy, stress-induced cardiomyopathy, or ischemic cardiomyopathy 4. Chronic alcohol abuse 5. Elevated troponins possibly due to demand ischemia versus NSTEMI 6. COPD Patient remains hemodynamically stable with no sustained arrhythmias on telemetry. Continue on the metoprolol. We'll plan to add low-dose NETTE inhibitor prior to discharge. Continue on aspirin and statin therapy. Can discontinue intravenous heparin drip today. Antibiotics per the medical team. Not planned for inpatient cardiac catheterization but will likely be a candidate for further ischemic evaluation with nuclear stress test in the future. Andres Soto MD [facility] Continue telemetry? Yes
[2016-11-15] VITALS (13 sets, daily range): BP systolic 87–118; BP diastolic 50–78
--- NOTE | 2016-11-15 07:32 | NUR ---
0445= ATTEMPTED TO GIVE PT PO MEDS, PATIENT SPIT WATER OUT, AND ATTEMPTED TO KICK STAFF. MD GOINS MADE AWARE, LEG RESTRAINTS APPLIED. PRN ATIVAN GIVEN. WILL CONT TO MONITOR.
--- NOTE | 2016-11-15 08:41 | NUR ---
Received patient at 0800: Drowsy/arousable, opens eyes to tactile & verbal stimulation, says "hello", wiggles/pulls at arms, and goes back to sleep. Wrist restraints in place for pulling at lines a drains. Sitter at the bedside. Pupils 4mm and brisk/equally reactive. NSR 60s-70s, SBP=90s-100s. No c/o CP. 2L nasal cannula, diminished breath sounds auscultated throughout. No distress noted. RR-12. Abdomen soft/round/distended, +BS. Louis in place draining clear/yellow urine. Skin is intact.
--- NOTE | 2016-11-15 08:50 | PN- Resident CRCU ---
Subjective HPI/CRCU Issues: Pt seen this morning, she is calm, in bed, being fed breakfast. SHe had no complains. She continued to have exp wheeze. She is stable to be transferred to [facility]. Wilbert obtain cxr this morning and evaluate if she needs PO lasix. Objective Vital Signs & I&O Last 8 Hrs of Vitals and I&O: Intake & Output 11/15 1600 11/15 0800 11/15 0000 Intake Total 400 720 Output Total 180 400 Balance 220 320 Intake, IV 20 Intake, Oral 400 700 Number 0 0 Bowel Movements Output, Urine 180 400 Laboratory Tests 11/15 1600 Chemistry Sodium (137 - 145 mmol/L) 136 L Potassium (3.5 - 5.1 mmol/L) 3.7 Chloride (98 - 107 mmol/L) 104 Carbon Dioxide (22 - 30 mmol/L) 26 Anion Gap (5 - 16) 7 BUN (7 - 17 mg/dL) 22 H Creatinine (0.5 - 1.0 mg/dL) 0.7 Estimated GFR (>60 ml/min) > 60 BUN/Creatinine Ratio (7 - 25 %) 31.4 H Phosphorus (2.5 - 4.5 mg/dL) 3.8 Magnesium (1.6 - 2.3 mg/dL) 1.5 L Coagulation APTT Cancelled Laboratory Tests 11/15/16 0430: Anion Gap 7, Estimated GFR > 60, BUN/Creatinine Ratio 31.4 H, Phosphorus 3.8, Magnesium 1.5 L 11/14/16 1600: APTT Cancelled Vital Signs Date Time Temp Pulse Resp B/P Pulse O2 O2 Flow FiO2 Ox Delivery Rate 11/15 0908 89 124/87 11/15 0845 95 Nasal 2.0L Cannula 11/15 0800 97.0 63 12 100/64 11/15 0800 94 Nasal 2.0L Cannula 11/15 0800 97.0 63 12 100/64 95 Nasal 2.0L Cannula 11/15 0600 97.0 68 12 105/75 11/15 0446 97.0 72 14 118/78 11/15 0400 97.0 72 14 118/78 11/15 0400 95 Nasal 2.0L Cannula 11/15 0200 97.9 78 22 106/68 11/15 0126 64 95 11/15 0000 97.9 68 20 98/64 11/15 0000 97.9 68 20 108/58 96 Nasal 2.0L Cannula 11/15 0000 96 Nasal 2.0L Cannula 11/14 2199 97.3 72 26 108/65 11/142 76 114/65 11/15 1999 97.3 72 16 108/67 11/15 1999 95 Nasal 2.0L Cannula 11/14 1600 92 Nasal 2.0L Cannula 11/14 1600 98.5 75 25 102/60 92 Nasal 2.0L Cannula Exam General Appearance: alert, awake, comfortable Head: atraumatic Respiratory: mild exp wheezes Cardiovascular: regular rate/rhythm Gastrointestinal: normal bowel sounds, non-tender Current Medications: Current Medications Sig/Liz Start time Last Medication Dose Route Stop Time Status Admin Acetaminophen 650 MG .STK-MED ONE 11/14 1945 DC PO 11/14 194 Acetaminophen 650 MG Q6P PRN 11/09 2215 AC 11/14 PO 194 Albuterol Sulfate 3 ML EVERY 4 HRS/AWAKE 11/10 1200 AC 11/15 INH 1202 Aspirin 81 MG DAILY 11/12 1000 AC 11/15 PO 0907 Atorvastatin Calcium 40 MG 1700 11/12 0945 AC 11/13 PO 1754 Cefuroxime Sodium 500 MG Q12 11/11 2200 AC 11/15 PO 11/18 1001 0907 Cinacalcet 30 MG DAILY 11/10 1000 AC 11/15 PO 0907 Enoxaparin Sodium 40 MG DAILY 11/15 1000 AC 11/15 SC 0911 Fenofibrate 145 MG DAILY 11/10 1000 AC 11/15 PO 0907 Folic Acid 1 MG DAILY 11/13 1000 DC 11/15 PO 11/15 1001 0907 Heparin Sodium 25,000 UNIT Q24H 11/12 1045 DC 11/13 (Porcine) IV 1600 Sodium Chloride 500 ML Insulin Aspart 0 AT BEDTIME 11/14 2199 AC 11/14 SC 2143 Insulin Aspart 0 TIDAC 11/14 0800 AC 11/15 SC 0911 Ipratropium [place] 2.5 ML EVERY 4 HRS/AWAKE 11/10 2000 AC 11/15 INH 1202 Levothyroxine Sodium 0.05 MG MoTuWeThFr@00 11/10 0700 AC 11/14 PO 1054 Levothyroxine Sodium 0.075 MG SuSa@11/09 2145 AC PO Lorazepam 0.5 MG ONCE 03/28 0000 AC PO 11/18 0001 Lorazepam 0.5 MG Q6H 11/17 0000 AC PO 11/17 1801 Lorazepam 1.5 MG Q12H 11/15 0600 AC PO 11/15 1801 Lorazepam 1.5 MG Q6 11/14 0600 DC PO 11/14 1801 Lorazepam 0 Q1P PRN 11/09 2115 AC 11/15 IV 0446 Magnesium Oxide 400 MG BID 11/15 1000 AC 11/15 PO 11/15 2201 0907 Metoprolol Tartrate 25 MG BID 11/13 1000 AC 11/15 PO 0908 Mirtazapine 7.5 MG AT BEDTIME 11/09 2200 AC 11/14 PO 2143 Morphine Sulfate 2 MG Q6P PRN 11/10 0030 AC 11/15 IV 0104 Multivitamins 1 TAB DAILY 11/13 1000 AC 11/15 PO 0907 Omeprazole 40 MG DAILY AC 11/10 0700 AC 11/13 PO 0656 Prednisone 40 MG DAILY 11/14 1016 AC 11/15 PO 0907 Thiamine HCl 100 MG DAILY 11/13 1000 DC 11/15 PO 11/15 1001 0907 Impression/Plan Impression/Problem List Impression: 71-year-old female, active smoker with past medical history of COPD on 2.5 L nocturnal O2, severe emphysema with asthmatic component, alcohol dependence with h/o DT's, alcoholic cardiomyopathy and pancreatitis, HTN, hypercalcemia on cinacalcet, hypothyroidism, B12 deficiency with peripheral neuropathy, admitted to telemetry for acute on chronic respiratory failure likely secondary to COPD exacerbation and PNA, with sinus tachycardia, PE ruled out by CTA, subsequently found to have pancreatitis, then transferred to ICU for flash pulmonary edema, positive troponin, concerning for NSTEMI, hypotension. She is also withdrawing from alcohol. Active issues: # COPD exacerbation # Pneumonia # Positive troponin, NSTEMI vs demand ischemia # Flash pulmonary edema, hx of alcoholic cardiomyopathy # Hypotension # Sinus tachycardia # Alcohol withdrawal # Pancreatitis UE restrain Venkatesh Zimmer [facility] # Alcohol withdrawal - Heavy alcohol use with serum alcohol 11 on admission * PO ativan taper started. IV ativan PRN * Folic acid, thiamine, multivitamin Respiratory: # COPD exacerbation # Pneumonia * Bipap as needed, hiflow oxygen as needed * Continue ceftin 500 bid for 7 days * Prednisone 40 mg daily (taper in 7 days) Cardiovascular # Positive troponin, most likely demand ischemia given significant tachycardia, with flash pulmonary edema, concerning for NSTEMI, hx of alcoholic cardiomyopathy - Stool guaiac negative - 11/12/16 echocardiogram: Endocardial border visualization is limited. Definity contrast was used. Moderate septal hypokinesis with paradoxical sepal motion. Left ventricular ejection fraction is estimated at 30- 35 %. * Max trop 0.8, has trended down * Heparin drip started as per Dr. Soto (abnormal septal movements on echocardiogram), has now been discontinued. * Aspirin and statin started, monitor liver function * If pt cannot consent, please call Sun, her niece, at her cell, . She is agreeable to transferring pt to cath if need be. * Add low dose ACEI prior to dc. Likely need further workup as outpatient # Flash pulmonary edema - 11/12: Given 1 X 20 mg IV lasix due to hypotension, then another 1 X 40 mg IV lasix once BP improved. 11/13: 2 X 40 mg IV lasix . 11/14: 1 X 40 mg IV lasix. * Follow up today's CXR, consider PO lasix # Hypotension down to 80 over doppler (resolved) - Could be due to metoprolol given for tachycardia - Lactic acid 2.5 --> 1.5. Fluids stopped due to flash pulmonary edema * Continue to monitor BP closely # Sinus tachycardia (up to 140s) * Metoprolol 25 mg BID started on 11/13 Alimentary # Pancreatitis * Can give low dose morphine Endocrine # Hypercalcemia * Will continue her Cinacalcet. # Hyperglycemia. - Her HbA1c 5.6 * Patient is kept on fingersticks * On novolog tidac # Hx of hypothyroidism - TSH: 2.830 /FT4: 1.4 * Continue levothyroxine Metabolic # Hypomagnesemia - Mag 0.9 on admission, probably secondary to alcohol use - Keep Mg > 2 * Replete as needed # Hypokalemia - Keep K > 4 * Replete as needed Diet: CC2 DVT ppx: alps and lovenox FULL CODE Consults: cardio, pulm Labs: BEP mag and phos electrolyte abnormality, alcoholic Problem List: 1. Alcohol withdrawal Pain Ratin Tomorrow's Labs & Rationales: BEP and mag for low K and mag Plan DVT/Prophylaxis: mechanical, pharmacological
--- NOTE | 2016-11-15 10:17 | PN- Pulmonary ---
Subjective HPI/Critical Care Issues: Doing a little better Afebrile Continues to be wheezing Awake does complain of feeling lousy No abdominal pain Did not eat much breakfast this morning Vital signs otherwise stable On 2 L nasal cannula Heparin drip has been discontinued Did go through some diuresis with Lasix Urine output seems to be reducing and she is in a negative fluid balance the past 2 days Review of Systems: Eyes no blurred or double vision Ears no deafness or ringing Nose and throat no recurrent sinusitis Lungs per history of present illness Heart per history of present illness Abdomen no nausea vomiting Musculoskeletal occasional muscle and joint pains Psych no anxiety or depression Neuro without recurrent headache or seizures Endocrine no heat or cold intolerance Significant data reviewed Chest x-ray done on the showed congestive heart failure [place] other blood work reviewed BUN at 22 creatinine 0.7 potassium at 3.7 her liver enzymes continued to be elevated bilirubin has improved however white count 10.2 hemoglobin 12.4 INR has been stable Objective Current Medications: Current Medications Sig/Liz Start time Last Medication Dose Route Stop Time Status Admin Acetaminophen 650 MG .STK-MED ONE 11/14 1946 DC PO 11/14 194 Acetaminophen 650 MG Q6P PRN 11/09 2215 AC 11/14 PO 1948 Albuterol Sulfate 3 ML EVERY 4 HRS/AWAKE 11/10 1200 AC 11/15 INH 0847 Aspirin 81 MG DAILY 11/12 1000 AC 11/15 PO 0907 Atorvastatin Calcium 40 MG 1700 11/12 0945 AC 11/13 PO 1754 Cefuroxime Sodium 500 MG Q12 11/11 2200 AC 11/15 PO 11/18 1001 0907 Cinacalcet 30 MG DAILY 11/10 1000 AC 11/15 PO 0907 Enoxaparin Sodium 40 MG DAILY 11/15 1000 AC 11/15 SC 0911 Fenofibrate 145 MG DAILY 11/10 1000 AC 11/15 PO 0907 Folic Acid 1 MG DAILY 11/13 1000 DC 11/15 PO 11/15 1001 0907 Furosemide 20 MG .STK-MED ONE 11/14 1030 DC IV 11/14 1031 Furosemide 20 MG .STK-MED ONE 11/14 1028 DC IV 11/14 1029 Furosemide 40 MG ONCE ONE 11/14 1015 DC 11/14 IV 11/14 1016 1034 Heparin Sodium 25,000 UNIT Q24H 11/12 1045 DC 11/13 (Porcine) IV 1600 Sodium Chloride 500 ML Insulin Aspart 0 AT BEDTIME 11/14 2200 AC 11/14 SC 2143 Insulin Aspart 0 TIDAC 11/14 0800 AC 11/15 SC 0911 Ipratropium [place] 2.5 ML EVERY 4 HRS/AWAKE 11/10 2000 AC 11/15 INH 0847 Levothyroxine Sodium 0.05 MG MoTuWeThFr@0700 11/10 0700 AC 11/14 PO 1054 Levothyroxine Sodium 0.075 MG SuSa@11/09 2145 AC PO Lorazepam 0.5 MG ONCE 11/18 0000 AC PO 11/18 0001 Lorazepam 0.5 MG Q6H 11/17 0000 AC PO 11/17 1801 Lorazepam 1.5 MG Q12H 11/15 0600 AC PO 11/15 1801 Lorazepam 1.5 MG Q6 11/14 0600 DC PO 11/14 1801 Lorazepam 0 Q1P PRN 11/09 2115 AC 11/15 IV 0446 Magnesium Oxide 400 MG BID 11/15 1000 AC 11/15 PO 11/15 2201 0907 Magnesium Sulfate 1 GM ONCE ONE 11/14 0730 DC 11/14 Dextrose/Water 100 ML IV 11/14 1129 0813 Metoprolol Tartrate 25 MG BID 11/13 1000 AC 11/15 PO 0908 Mirtazapine 7.5 MG AT BEDTIME 11/09 2200 AC 11/14 PO 2143 Morphine Sulfate 2 MG Q6P PRN 11/10 0030 AC 11/15 IV 0104 Multivitamins 1 TAB DAILY 11/13 1000 AC 11/15 PO 0907 Omeprazole 40 MG DAILY AC 11/10 0700 AC 11/13 PO 0656 Prednisone 40 MG DAILY 11/15 1000 CAN PO Prednisone 40 MG DAILY 11/14 1016 AC 11/15 PO 0907 Prednisone 50 MG DAILY 11/11 1000 DC 11/13 PO 1300 Thiamine HCl 100 MG DAILY 11/13 1000 DC 11/15 PO 11/15 1001 0907 Vital Signs & I&O Last 24 Hrs of Vitals and I&O: Vital Signs Date Time Temp Pulse Resp B/P Pulse O2 O2 Flow FiO2 Ox Delivery Rate 11/15 0908 89 124/87 11/15 0800 97.0 63 12 100/64 11/15 0800 94 Nasal 2.0L Cannula 11/15 08 97.0 63 12 100/64 95 Nasal 2.0L Cannula 11/15 0600 97.0 68 12 105/75 11/15 0446 97.0 72 14 118/78 11/15 0400 97.0 72 14 118/78 11/15 0400 95 Nasal 2.0L Cannula 11/15 0200 97.9 78 22 106/68 11/15 0126 64 95 03 0000 97.9 68 20 98/64 11/15 0000 97.9 68 20 108/58 96 Nasal 2.0L Cannula 11/15 0000 96 Nasal 2.0L Cannula 11/14 2200 97.3 72 26 108/65 11/14 2142 76 114/65 11/15 1999 97.3 72 16 108/67 11/15 1999 95 Nasal 2.0L Cannula 11/14 1600 92 Nasal 2.0L Cannula 11/14 1600 98.5 75 25 102/60 92 Nasal 2.0L Cannula 11/14 1200 97 Nasal 3.0L Cannula Intake & Output 11/15 1600 11/15 0800 11/15 0000 Intake Total 400 720 Output Total 180 400 Balance 220 320 Intake, IV 20 Intake, Oral 400 700 Number 0 0 Bowel Movements Output, Urine 180 400 Laboratory Tests 11/15 11/14 11/14 0430 1600 0730 Chemistry Sodium (137 - 145 mmol/L) 136 L Potassium (3.5 - 5.1 mmol/L) 3.7 Chloride (98 - 107 mmol/L) 104 Carbon Dioxide (22 - 30 mmol/L) 26 Anion Gap (5 - 16) 7 BUN (7 - 17 mg/dL) 22 H Creatinine (0.5 - 1.0 mg/dL) 0.7 Estimated GFR (>60 ml/min) > 60 BUN/Creatinine Ratio (7 - 25 %) 31.4 H Phosphorus (2.5 - 4.5 mg/dL) 3.8 Magnesium (1.6 - 2.3 mg/dL) 1.5 L Coagulation APTT (25 - 37 SEC) Cancelled > 120 *H 11/14 11/14 11/13 0426 0031 1305 Chemistry Sodium (137 - 145 mmol/L) 134 L Potassium (3.5 - 5.1 mmol/L) 3.8 Chloride (98 - 107 mmol/L) 100 Carbon Dioxide (22 - 30 mmol/L) 27 Anion Gap (5 - 16) 7 BUN (7 - 17 mg/dL) 21 H Creatinine (0.5 - 1.0 mg/dL) 0.8 Estimated GFR (>60 ml/min) > 60 Glucose (65 - 99 mg/dL) 251 H Calcium (8.4 - 10.2 mg/dL) 8.4 Phosphorus (2.5 - 4.5 mg/dL) 3.3 Magnesium (1.6 - 2.3 mg/dL) 1.7 Total Bilirubin (0.2 - 1.3 mg/dL) 0.6 AST (14 - 36 U/L) 22 ALT (9 - 52 U/L) 59 H Albumin (3.5 - 5.0 g/dL) 3.0 L Coagulation APTT (25 - 37 SEC) 34 67 H Hematology CBC w Diff NO MAN DIFF REQ WBC (4.8 - 10.8 /CUMM) 10.2 RBC (4.20 - 5.40 /CUMM) 3.49 L Hgb (12.0 - 16.0 G/DL) 12.4 Hct (37 - 47 %) 37.1 MCV (81.0 - 99.0 FL) 106.3 H MCH (27.0 - 31.0 PG) 35.7 H RDW (11.5 - 14.5 %) 13.6 Plt Count (130 - 400 /CUMM) 188 MPV (7.4 - 10.4 FL) 9.8 Gran % (42.2 - 75.2 %) 78.2 H Lymphocytes % (20.5 - 51.1 %) 12.1 L Monocytes % (1.7 - 9.3 %) 8.8 Eosinophils % (0 - 5 %) 0.6 Basophils % (0.0 - 2.0 %) 0.3 Absolute Granulocytes (1.4 - 6.5 /CUMM) 8.0 H Absolute Lymphocytes (1.2 - 3.4 /CUMM) 1.2 Absolute Monocytes (0.10 - 0.60 /CUMM) 0.9 H Absolute Eosinophils (0.0 - 0.7 /CUMM) 0.1 Absolute Basophils (0.0 - 0.2 /CUMM) 0 PUBS MCHC (33.0 - 37.0 G/DL) 33.6 Impression/Plan Impression/Plan Impression/Plan: Physical Exam General Appearance Alert, Oriented X2, Cooperative, Moderate Distress dyspnea Skin No Rashes, No Significant Lesion HEENT Atraumatic, PERRLA, EOMI, Mucous Membr. moist/pink Neck Supple, +2 Carotid Pulse wo Bruit Lymphatic Cervical nl Cardiovascular Tachycarid with normal S1/S2 Lungs Diffuse wheezing in all lung bridges with decreased air entry bilaterally. Decreased basal breath sounds. with crackles Abdomen Normal Bowel Sounds, Soft, Petechia noted on abdomen., tenderness to palpation of epigastric region Neurological Normal Speech, Normal Tone Extremities No Clubbing, No Cyanosis, No Edema, Normal Pulses, No Tenderness/ Swelling Vascular Pulses Symmetrical This is a 71-year-old lady with history of significant smoking, severe COPD with asthmatic component, recurrent respiratory failure with COPD exacerbation, more than [id number] smoking history, FEV1 of 0.8 L on 2-3 L nasal cannula at home usually, still ongoing smoking, previous history of significant alcoholism now has been drinking, depression, hypothyroidism on adequate supplementation, hypertension, previous liver failure with alcoholic hepatitis which seems to have resolved, Now with abd pain and wheezing * Resolved Acute hypoxic resp failure with resolving Acute pulm edema in a lady with high risk for ihd with previous non obs coronary disease, after fluid resusitation for pancreatitis, Acute coronary syndrome could still be a posibility but likely etoh cardiomyopathy * Significant acute pancreatitis with ongoing drinking slowly improving * Severe COPD with acute exacerbation of COPD * Right middle lobe infiltrate unlikely to be pneumonia but cannot rule out * Significant alcoholism with active withdrawal * Sinus tachycardia, improving * Resolving hypercalcemia most likely related to multiple issues patient has been on cinacalcet * Ongoing nicotine use * Hypothyroidism on appropriate supplementation * Hyperlipidemia * Previous history of liver failure / Immunosuppressed state due to alcoholism / Significant fatty liver / Glucose intolerance and B12 deficiency / Peripheral neuropathy. / Previous nonischemic heart disease with previous coronary angiogram which was unremarkable but patient does have cardiomyopathy probably related to previous alcoholism which is mild, watch for chf RECOMMENDATION * Repeat chest x-ray and if he chose significant congestive heart failure we will give her one dose of by mouth Lasix * ASa statin, * Ativan prn, wean down * Continue nebulizer therapy with ipratropium and albuterol every 8 hours * Sugar control * Prednisone reduce to 40 and taper in 7 days * Ceftin 500 twice a day (total 7 days) * Continue her Levoxyl * Keep the head of bed elevated * BIPAP prn, or high flow if needed * PO thiamine, folic acid and b12 daily When able to go to the floor PT is critically ill tts 35mins
--- NOTE | 2016-11-15 15:24 | PN- Cardiology ---
Subjective Subjective: The patient is comfortable, with no new complaints. She is currently hypotensive. No chest pain. She continues to be intermittently wheezing. Objective Vital Signs and I&Os Vital Signs Date Time Temp Pulse Resp B/P Pulse O2 O2 Flow FiO2 Ox Delivery Rate 11/15 1400 97.4 70 18 87/55 11/15 1200 97.2 64 11 98/53 11/15 1000 97.0 66 11 96/61 11/15 0908 89 124/87 11/15 0845 95 Nasal 2.0L Cannula 11/15 0800 97.0 63 12 100/64 11/15 0800 97.0 68 10 106/67 11/15 0800 94 Nasal 2.0L Cannula 11/15 0800 97.0 63 12 100/64 95 Nasal 2.0L Cannula 11/15 0600 97.0 68 12 105/75 11/15 0446 97.0 72 14 118/78 11/15 0400 97.0 72 14 118/78 11/15 0400 95 Nasal 2.0L Cannula 11/15 0200 97.9 78 22 106/68 11/15 0126 64 95 11/15 0000 97.9 68 20 98/64 11/15 0000 97.9 68 20 108/58 96 Nasal 2.0L Cannula 11/15 0000 96 Nasal 2.0L Cannula 11/14 2200 97.3 72 26 108/65 11/14 2142 76 114/65 11/15 1999 97.3 72 16 108/67 11/15 1999 95 Nasal 2.0L Cannula 11/14 1600 92 Nasal 2.0L Cannula 11/14 1600 98.5 75 25 102/60 92 Nasal 2.0L Cannula Intake & Output 11/15 1600 11/15 0800 11/15 0000 11/14 1600 11/14 0800 11/14 0000 Intake Total 200 400 720 511.8 427.2 623.2 Output Total 250 885 532 9966 1350 350 Balance -50 220 320 -738.2 -922.8 273.2 Intake, IV 20 211.8 207.2 203.2 Intake, Oral 200 400 700 300 220 420 Number 0 0 0 0 Bowel Movements Output, Urine 250 964 061 7888 1350 350 Physical Exam: Gen: NAD HEENT: normal Lungs: clear to auscultation, normal resp. effort Heart: RRR, S1, S2, no murmurs Abdomen: Soft, nontender, no masses Extremities: No clubbing, cyanosis, or edema. Neuro: Alert and oriented x 3, cranial nerves intact Current Medications: Current Medications Sig/Liz Start time Last Medication Dose Route Stop Time Status Admin Acetaminophen 650 MG .STK-MED ONE 11/14 1945 DC PO 11/14 1946 Acetaminophen 650 MG Q6P PRN 11/09 2215 AC 11/14 PO 194 Albuterol Sulfate 3 ML EVERY 4 HRS/AWAKE 11/10 1200 AC 11/15 INH 1202 Aspirin 81 MG DAILY 11/12 1000 AC 11/15 PO 0907 Atorvastatin Calcium 40 MG 1700 11/12 0945 AC 11/13 PO 1754 Cefuroxime Sodium 500 MG Q12 11/11 2200 AC 11/15 PO 11/18 1001 0907 Cinacalcet 30 MG DAILY 11/10 1000 AC 11/15 PO 0907 Enoxaparin Sodium 40 MG DAILY 11/15 1000 AC 11/15 SC 0911 Fenofibrate 145 MG DAILY 11/10 1000 AC 11/15 PO 0907 Folic Acid 1 MG DAILY 11/13 1000 DC 11/15 PO 11/15 1001 0907 Insulin Aspart 0 AT BEDTIME 11/14 2200 AC 11/14 SC 2143 Insulin Aspart 0 TIDAC 11/14 0800 AC 11/15 SC 0911 Ipratropium [place] 2.5 ML EVERY 4 HRS/AWAKE 11/10 2000 AC 11/15 INH 1202 Levothyroxine Sodium 0.05 MG MoTuWeThFr@11/10 0700 AC 11/14 PO 1054 Levothyroxine Sodium 0.075 MG SuSa@11/09 2145 AC PO Lorazepam 0.5 MG ONCE 11/18 0000 AC PO 11/18 0001 Lorazepam 0.5 MG Q6H 11/17 0000 AC PO 11/17 1801 Lorazepam 1.5 MG Q12H 11/15 0600 AC PO 11/15 1801 Lorazepam 1.5 MG Q6 11/14 0600 DC PO 11/14 1801 Lorazepam 0 Q1P PRN 11/09 2115 AC 11/15 IV 0446 Magnesium Oxide 400 MG BID 11/15 1000 AC 11/15 PO 11/15 2201 0907 Magnesium Sulfate 1 GM Q2H 11/15 1215 AC 11/15 Dextrose/Water 100 ML IV 11/15 1614 1356 Metoprolol Tartrate 25 MG BID 11/13 1000 AC 11/15 PO 0908 Mirtazapine 7.5 MG AT BEDTIME 11/09 2200 AC 11/14 PO 2143 Morphine Sulfate 2 MG Q6P PRN 11/10 0030 AC 11/15 IV 0104 Multivitamins 1 TAB DAILY 11/13 1000 AC 11/15 PO 0907 Omeprazole 40 MG DAILY AC 11/10 0700 AC 11/13 PO 0656 Potassium Chloride 40 MEQ ONCE ONE 11/15 1215 DC 11/15 PO 11/15 1216 1356 Prednisone 40 MG DAILY 11/14 1016 AC 11/15 PO 0907 Thiamine HCl 100 MG DAILY 11/13 1000 DC 11/15 PO 11/15 1001 0907 Results Last 48 Hrs of Labs/Mics: Laboratory Tests 11/15/16 0430: Anion Gap 7, Estimated GFR > 60, BUN/Creatinine Ratio 31.4 H, Phosphorus 3.8, Magnesium 1.5 L 11/14/16 1600: APTT Cancelled 11/14/16 0730: APTT > 120 *H 11/14/16 0426: Anion Gap 7, Estimated GFR > 60, Glucose 251 H, Calcium 8.4, Phosphorus 3.3, Magnesium 1.7, Total Bilirubin 0.6, AST 22, ALT 59 H, Albumin 3.0 L, CBC w Diff NO MAN DIFF REQ, RBC 3.49 L, MCV 106.3 H, MCH 35.7 H, RDW 13.6, MPV 9.8, Gran % 78.2 H, Lymphocytes % 12.1 L, Monocytes % 8.8, Eosinophils % 0.6, Basophils % 0.3, Absolute Granulocytes 8.0 H, Absolute Lymphocytes 1.2, Absolute Monocytes 0.9 H, Absolute Eosinophils 0.1, Absolute Basophils 0, PUBS MCHC 33.6 11/14/16 0031: APTT 34 Assessment/Plan Assessment/Plan Assessment: 1. EtOH pancreatitis 2. Possible pneumonia 3. New cardiomyopathy. Possible stress-induced cardiomyopathy versus alcoholic cardiomyopathy versus ischemic cardiomyopathy 4. Mild troponin elevation, demand ischemia versus NSTEMI 5. Recent hypotension Plan: * Given hypotension today, would decrease metoprolol to 12.5 mg twice a day * Continue aspirin and statin * Antibiotics as per the medical service * Would hold off on giving Lasix until the blood pressure improves. Continue telemetry? Yes
--- NOTE | 2016-11-15 16:07 | RADIOLOGY REPORT ---
EXAMINATION: XR PORTABLE CHEST CLINICAL INFORMATION: Pulmonary edema. CHF. COMPARISON: Multiple priors, most recent chest radiograph dated 11/12/2016. TECHNIQUE: Portable AP semiupright view of the chest was obtained. FINDINGS: Mild bilateral increased interstitial markings and prominence of the pulmonary vasculature as seen on the prior examinations. No focal consolidation. No pleural effusion or pneumothorax. Unchanged mild prominence of the cardiomediastinal silhouette. IMPRESSION: Findings consistent with congestive heart failure, slightly less prominent since the prior examination.
--- NOTE | 2016-11-15 20:28 | NUR ---
1500: [facility] BE [facility]. AUTO CUFF B/P AT THIS TIME 74/47. MANUALLY 80/50. INFORMED DR. HANEY AND DR. URIARTE. METOPROLOL CHANGED FROM 25 MG BID TO 12.5MG BID. PATIENT TO STAY IN THE ICU FOR CONTINUED MONITORING UNTIL B/P IS IMPROVED AND CAN THEN BE TRANSFERRED. PATIENT IS ASYMPTOMATIC W/ THE B/P AND DENIES COMPLAINTS OTHER THAN CONFUSION. CONTINUING TO MONITOR AND MAINTAIN SAFETY.
--- NOTE | 2016-11-15 22:15 | NUR ---
PT ALERT AND CONFUSED. 2 L NC- POX-98%. DODGE. SINUS RYTHUM. CIWA Q2. B/P- . PO LOPRESSOR HELD. MD GOINS AWARE. WILL CONTIUE TO MONITOR.
[2016-11-16] VITALS (9 sets, daily range): BP systolic 90–160; BP diastolic 50–98
--- NOTE | 2016-11-16 06:25 | NUR ---
PT BECAME AGITATED AT 4 AM. TRYING KICKING AT STAFF. NEW ORDER PLACED FOR BILATERAL LEG SOFT RESTRAINTS. PT MEDICATED PER CIWA SCALE. PT CURRENTLY CALM AND ASLEEP. WILL CONTINUE TO MONITOR.
--- NOTE | 2016-11-16 08:18 | PN- Resident CRCU ---
Subjective HPI/CRCU Issues: Incidental examined this morning. She was lying in bed in no acute distress, has bilateral upper and lower extremity self restraints as she was agitated overnight. Otherwise remains afebrile, satting mid 90s on 2 L of nasal cannula oxygen, blood pressure within normal limits . 24 Hour Events: She was reportedly agitated for which he required bilateral upper and lower estimate a soft restraints. Objective Vital Signs & I&O Last 8 Hrs of Vitals and I&O: Laboratory Tests 11/16/16 0450: Anion Gap 2 L, Estimated GFR > 60, BUN/Creatinine Ratio 27.5 H, Magnesium 1.9 Vital Signs Date Time Temp Pulse Resp B/P Pulse O2 O2 Flow FiO2 Ox Delivery Rate 11/16 0833 96 Nasal 2.0L Cannula 11/16 0622 76 120/80 11/16 0600 98.0 77 18 120/80 11/16 0400 98.0 77 20 120/80 11/16 0254 90/60 11/16 0100 77 90/50 11/16 0000 Nasal 2.0L Cannula 11/16 0000 97.8 70 18 110/70 11/16 0000 97.9 70 16 110/70 98 Nasal 2.0L Cannula 11/15 2206 78 90/60 11/15 2200 98.0 77 20 90/60 11/15 2000 97.0 72 18 98/64 11/15 1800 97.2 70 18 92/50 11/15 1630 95 Nasal 2.0L Cannula 11/15 1600 97.2 69 12 92/64 11/15 1600 93 Nasal 2.0L Cannula 11/15 1600 97.2 69 12 92/64 95 Nasal 2.0L Cannula 11/15 1400 97.4 70 18 87/55 11/15 1200 97.2 64 11 98/53 Intake & Output 11/16 1600 11/16 0800 11/16 0000 Intake Total 120 120 Output Total 200 350 Balance -80 -230 Intake, Oral 120 120 Output, Urine 200 350 Exam General Appearance: well developed/nourished, awake, lethargic Head: atraumatic, normal appearance Respiratory: mild exp wheeze Cardiovascular: regular rate/rhythm Gastrointestinal: normal bowel sounds, soft, non-tender Extremities: normal inspection, no edema Current Medications: Current Medications Sig/Liz Start time Last Medication Dose Route Stop Time Status Admin Acetaminophen 650 MG Q6P PRN 11/09 2214 AC 11/14 PO 1948 Albuterol Sulfate 3 ML EVERY 4 HRS/AWAKE 11/10 1200 AC 11/16 INH 0755 Aspirin 81 MG DAILY 11/12 1000 AC 11/16 PO 0951 Atorvastatin Calcium 40 MG 1700 11/12 0945 AC 11/15 PO 1800 Cefuroxime Sodium 500 MG Q12 11/11 2200 AC 11/16 PO 11/18 1001 0950 Cinacalcet 30 MG DAILY 11/10 1000 AC 11/16 PO 0950 Enoxaparin Sodium 40 MG DAILY 11/15 1000 AC 11/16 SC 0951 Fenofibrate 145 MG DAILY 11/10 1000 AC 11/16 PO 0950 Insulin Aspart 0 AT BEDTIME 11/14 2200 AC 11/15 SC 2201 Insulin Aspart 0 TIDAC 11/14 0800 AC 11/16 SC 0817 Ipratropium [place] 2.5 ML EVERY 4 HRS/AWAKE 11/10 2000 AC 11/16 INH 0755 Levothyroxine Sodium 0.05 MG MoTuWeThFr@0711/10 0700 AC 11/14 PO 1054 Levothyroxine Sodium 0.075 MG SuSa@0700 11/09 2145 AC 11/16 PO 0530 Lorazepam 0.5 MG ONCE 11/18 0000 AC PO 11/18 0001 Lorazepam 0.5 MG Q6H 11/17 0000 AC PO 11/17 1801 Lorazepam 1.5 MG Q12H 11/15 0600 DC 11/15 PO 11/15 1801 1801 Lorazepam 0 Q1P PRN 11/09 2115 AC 11/16 IV 0348 Magnesium Oxide 400 MG ONE ONE 11/16 0830 DC 11/16 PO 11/16 0831 0950 Magnesium Oxide 400 MG BID 11/15 1000 DC 11/15 PO 11/15 2201 2201 Magnesium Sulfate 1 GM Q2H 11/15 1215 DC 11/15 Dextrose/Water 100 ML IV 11/15 1614 1500 Metoprolol Tartrate 12.5 MG BID 11/150 AC PO Metoprolol Tartrate 25 MG BID 11/13 1000 DC 11/15 PO 0908 Mirtazapine 7.5 MG AT BEDTIME 11/09 2200 AC 11/15 PO 2201 Morphine Sulfate 2 MG Q6P PRN 11/10 0030 AC 11/16 IV 0530 Multivitamins 1 TAB DAILY 11/13 1000 AC 11/16 PO 0950 Omeprazole 40 MG DAILY AC 11/10 0700 AC 11/16 PO 0530 Patient Medication 1 UNIT ONE NR 11/15 1815 DC Teaching ED 11/15 1830 Phosphate 250 MG PC AND AT BEDTIME 11/16 0900 AC PO Potassium Chloride 40 MEQ ONCE ONE 11/15 1215 DC 11/15 PO 11/15 1216 1356 Prednisone 40 MG DAILY 11/14 1016 AC 11/16 PO 0950 Senna 187 MG AT BEDTIME 11/16 2200 DC PO Senna 187 MG AT BEDTIME 11/16 0115 AC 11/16 PO 0339 Antibiotics Antibiotic: ceftin Impression/Plan Impression/Problem List Impression: 71-year-old female, active smoker with past medical history of COPD on 2.5 L nocturnal O2, severe emphysema with asthmatic component, alcohol dependence with h/o DT's, alcoholic cardiomyopathy and pancreatitis, HTN, hypercalcemia on cinacalcet, hypothyroidism, B12 deficiency with peripheral neuropathy, admitted to telemetry for acute on chronic respiratory failure likely secondary to COPD exacerbation and PNA, with sinus tachycardia, PE ruled out by CTA, subsequently found to have pancreatitis, then transferred to ICU for flash pulmonary edema, positive troponin, concerning for NSTEMI, hypotension. She is also withdrawing from alcohol. Active issues: # COPD exacerbation # Pneumonia # Positive troponin, NSTEMI vs demand ischemia # Flash pulmonary edema, hx of alcoholic cardiomyopathy # Hypotension # Sinus tachycardia # Alcohol withdrawal # Pancreatitis UE restrain [place] [facility] [place] [facility] # Alcohol withdrawal - Heavy alcohol use with serum alcohol 11 on admission * PO ativan taper started. IV ativan PRN >> patient was agitated for which she required soft restraints 4, ciwa 24 hours 12,0,4 * Folic acid, thiamine, multivitamin Respiratory: # COPD exacerbation # Pneumonia * Bipap as needed, hiflow oxygen as needed * Continue ceftin 500 bid for 7 days * Prednisone 40 mg daily (taper in 7 days) Cardiovascular # Positive troponin, most likely demand ischemia given significant tachycardia, with flash pulmonary edema, concerning for NSTEMI, hx of alcoholic cardiomyopathy - Stool guaiac negative - 11/12/16 echocardiogram: Endocardial border visualization is limited. Definity contrast was used. Moderate septal hypokinesis with paradoxical sepal motion. Left ventricular ejection fraction is estimated at 30- 35 %. * Max trop 0.8, has trended down * Heparin drip started as per Dr. Soto (abnormal septal movements on echocardiogram), has now been discontinued. * Aspirin and statin started, monitor liver function * If pt cannot consent, please call Sun, her niece, at her cell, . She is agreeable to transferring pt to cath if need be. * Add low dose ACEI prior to dc. Likely need further workup as outpatient # Flash pulmonary edema - 11/12: Given 1 X 20 mg IV lasix due to hypotension, then another 1 X 40 mg IV lasix once BP improved. 11/13: 2 X 40 mg IV lasix . 11/14: 1 X 40 mg IV lasix. * Follow up today's CXR, consider PO lasix >> patient was hypertensive, as per cardio hold off Lasix until blood pressure improves. # Hypotension down to 80 over doppler (resolved) - Could be due to metoprolol given for tachycardia - Lactic acid 2.5 --> 1.5. Fluids stopped due to flash pulmonary edema * Continue to monitor BP closely # Sinus tachycardia (up to 140s) * Metoprolol 25 mg BID started on 11/13 >> decreased to 12.5 mg twice a day Alimentary # Pancreatitis * Can give low dose morphine Endocrine # Hypercalcemia * Will continue her Cinacalcet. # Hyperglycemia. - Her HbA1c 5.6 * Patient is kept on fingersticks * On novolog tidac # Hx of hypothyroidism - TSH: 2.830 /FT4: 1.4 * Continue levothyroxine Metabolic # Hypomagnesemia - Mag 0.9 on admission, probably secondary to alcohol use - Keep Mg > 2 * Replete as needed # Hypokalemia - Keep K > 4 * Replete as needed Diet: CC2 DVT ppx: alps and lovenox FULL CODE Consults: cardio, pulm Labs: BEP mag and phos electrolyte abnormality, alcoholic Problem List: 1. Alcohol dependence 2. Hypomagnesemia 3. Alcoholic cardiomyopathy Pain Ratin Tomorrow's Labs & Rationales: . Plan DVT/Prophylaxis: mechanical, pharmacological
--- NOTE | 2016-11-16 09:00 | NUR ---
PT IS ALERT BUT SLIGHTLY SLEEPY. SHE ONLY KNOWS HER FIRST NAME. SHE IS CALM AT THIS TIME BUT BC OF CONFUSION AND HIGH FALL RISK SHE IS CONTINUING ON RESTRAINTS AND SITTER AT THIS TIME. WILL RE-EVAL NEED THROUGHOUT THE DAY. PT GETS SOB ON EXERTION, TURNING SIDE TO SIDE, BUT NOT AT REST. EXPIRATORY WHEEZE NOTED. EDEMA NOTED TO LEFT ARM. NO PAIN TO THAT SITE. DR.SAMREEN ALAN IS AWARE. WILL DO US IF IT WORSENS. CIWA 0.
--- NOTE | 2016-11-16 11:08 | PN- Pulmonary ---
Subjective HPI/Critical Care Issues: She was lying in bed in no acute distress, has bilateral upper and lower extremity self restraints as she was agitated overnight. Otherwise remains afebrile, satting mid 90s on 2 L of nasal cannula oxygen, blood pressure within normal limits . 24 Hour Events: She was reportedly agitated for which he required bilateral upper and lower estimate a soft restraints. Now her restraints have been removed by me Objective Current Medications: Current Medications Sig/Liz Start time Last Medication Dose Route Stop Time Status Admin Acetaminophen 650 MG Q6P PRN 11/09 221 AC 11/14 PO 1948 Albuterol Sulfate 3 ML EVERY 4 HRS/AWAKE 11/10 1200 AC 11/16 INH 0755 Aspirin 81 MG DAILY 11/12 1000 AC 11/16 PO 0951 Atorvastatin Calcium 40 MG 1700 11/12 0945 AC 11/15 PO 1800 Cefuroxime Sodium 500 MG Q12 11/11 2200 AC 11/16 PO 11/18 1001 0950 Cinacalcet 30 MG DAILY 11/10 1000 AC 11/16 PO 0950 Enoxaparin Sodium 40 MG DAILY 11/15 1000 AC 11/16 SC 0951 Fenofibrate 145 MG DAILY 11/10 1000 AC 11/16 PO 0950 Insulin Aspart 0 AT BEDTIME 11/14 220 AC 11/15 SC 2201 Insulin Aspart 0 TIDAC 11/14 0800 AC 11/16 SC 0817 Ipratropium [place] 2.5 ML EVERY 4 HRS/AWAKE 11/10 2000 AC 11/16 INH 0755 Levothyroxine Sodium 0.05 MG MoTuWeThFr@0700 11/10 0700 AC 11/14 PO 1054 Levothyroxine Sodium 0.075 MG SuSa@0700 11/09 2145 AC 11/16 PO 0530 Lorazepam 0.5 MG ONCE 11/18 0000 AC PO 11/18 0001 Lorazepam 0.5 MG Q6H 11/17 0000 AC PO 11/17 1801 Lorazepam 1.5 MG Q12H 11/15 0600 DC 11/15 PO 11/15 1801 1801 Lorazepam 0 Q1P PRN 11/09 2115 AC 11/16 IV 0348 Magnesium Oxide 400 MG ONE ONE 11/16 0830 DC 11/16 PO 11/16 0831 0950 Magnesium Oxide 400 MG BID 11/15 1000 DC 11/15 PO 11/15 220 2201 Magnesium Sulfate 1 GM Q2H 11/15 1215 DC 11/15 Dextrose/Water 100 ML IV 11/15 1614 1500 Metoprolol Tartrate 12.5 MG BID 11/15 2199 AC PO Metoprolol Tartrate 25 MG BID 11/13 1000 DC 11/15 PO 0908 Mirtazapine 7.5 MG AT BEDTIME 11/09 2200 AC 11/15 PO 2201 Morphine Sulfate 2 MG Q6P PRN 11/10 0030 AC 11/16 IV 0530 Multivitamins 1 TAB DAILY 11/13 1000 AC 11/16 PO 0950 Omeprazole 40 MG DAILY AC 11/10 0700 AC 11/16 PO 0530 Patient Medication 1 UNIT ONE NR 11/15 1815 DC Teaching ED 11/15 1830 Phosphate 250 MG PC AND AT BEDTIME 11/16 0900 AC 11/16 PO 1055 Potassium Chloride 40 MEQ ONCE ONE 11/15 1215 DC 11/15 PO 11/15 1216 1356 Prednisone 40 MG DAILY 11/14 1016 AC 11/16 PO 0950 Senna 187 MG AT BEDTIME 11/16 220 DC PO Senna 187 MG AT BEDTIME 11/16 0115 AC 11/16 PO 0339 Vital Signs & I&O Last 24 Hrs of Vitals and I&O: Vital Signs Date Time Temp Pulse Resp B/P Pulse O2 O2 Flow FiO2 Ox Delivery Rate 11/16 1055 85 98/54 11/16 0833 96 Nasal 2.0L Cannula 11/16 0622 76 120/80 11/16 0600 98.0 77 18 120/80 11/16 0400 98.0 77 20 120/80 11/16 0254 90/60 11/16 0100 77 90/50 11/16 0000 Nasal 2.0L Cannula 11/16 0000 97.8 70 18 110/70 11/16 0000 97.9 70 16 110/70 98 Nasal 2.0L Cannula 11/15 2206 78 90/60 11/15 2200 98.0 77 20 90/60 11/15 2000 97.0 72 18 98/64 11/15 1800 97.2 70 18 92/50 11/15 1630 95 Nasal 2.0L Cannula 11/15 1600 97.2 69 12 92/64 11/15 1600 93 Nasal 2.0L Cannula 11/15 1600 97.2 69 12 92/64 95 Nasal 2.0L Cannula 11/15 1400 97.4 70 18 87/55 11/15 1200 97.2 64 11 98/53 Intake & Output 11/16 1600 11/16 0800 11/16 0000 Intake Total 120 120 Output Total 200 350 Balance -80 -230 Intake, Oral 120 120 Output, Urine 200 350 Laboratory Tests 11/16 11/15 11/14 0450 0430 1600 Chemistry Sodium (137 - 145 mmol/L) 134 L 136 L Potassium (3.5 - 5.1 mmol/L) 4.2 3.7 Chloride (98 - 107 mmol/L) 100 104 Carbon Dioxide (22 - 30 mmol/L) 32 H 26 Anion Gap (5 - 16) 2 L 7 BUN (7 - 17 mg/dL) 22 H 22 H Creatinine (0.5 - 1.0 mg/dL) 0.8 0.7 Estimated GFR (>60 ml/min) > 60 > 60 BUN/Creatinine Ratio (7 - 25 %) 27.5 H 31.4 H Phosphorus (2.5 - 4.5 mg/dL) 3.8 Magnesium (1.6 - 2.3 mg/dL) 1.9 1.5 L Coagulation APTT Cancelled Impression/Plan Impression/Plan Impression/Plan: Physical Exam General Appearance Alert, Oriented X2, Cooperative, Moderate Distress dyspnea Skin No Rashes, No Significant Lesion HEENT Atraumatic, PERRLA, EOMI, Mucous Membr. moist/pink Neck Supple, +2 Carotid Pulse wo Bruit Lymphatic Cervical nl Cardiovascular Tachycarid with normal S1/S2 Lungs Diffuse wheezing in all lung bridges with decreased air entry bilaterally. Decreased basal breath sounds. with crackles Abdomen Normal Bowel Sounds, Soft, Petechia noted on abdomen., tenderness to palpation of epigastric region Neurological Normal Speech, Normal Tone Extremities No Clubbing, No Cyanosis, No Edema, Normal Pulses, No Tenderness/ Swelling Vascular Pulses Symmetrical This is a 71-year-old lady with history of significant smoking, severe COPD with asthmatic component, recurrent respiratory failure with COPD exacerbation, more than [id number] smoking history, FEV1 of 0.8 L on 2-3 L nasal cannula at home usually, still ongoing smoking, previous history of significant alcoholism now has been drinking, depression, hypothyroidism on adequate supplementation, hypertension, previous liver failure with alcoholic hepatitis which seems to have resolved, Now with abd pain and wheezing * Resolved Acute hypoxic resp failure with resolving Acute pulm edema in a lady with high risk for ihd with previous non obs coronary disease, after fluid resusitation for pancreatitis, Acute coronary syndrome could still be a posibility but likely etoh cardiomyopathy * Significant acute pancreatitis with ongoing drinking slowly improving * Severe COPD with acute exacerbation of COPD * Right middle lobe infiltrate unlikely to be pneumonia but cannot rule out * Significant alcoholism with active withdrawal, slowly improving * Sinus tachycardia, improving * Resolving hypercalcemia most likely related to multiple issues patient has been on cinacalcet * Ongoing nicotine use * Hypothyroidism on appropriate supplementation * Hyperlipidemia * Previous history of liver failure / Immunosuppressed state due to alcoholism / Significant fatty liver / Glucose intolerance and B12 deficiency / Peripheral neuropathy. / Previous nonischemic heart disease with previous coronary angiogram which was unremarkable but patient does have cardiomyopathy probably related to previous alcoholism which is mild, watch for chf RECOMMENDATION * Lasix one dose 40 po * ASa statin, * Ativan prn, wean down * Continue nebulizer therapy with ipratropium and albuterol every 8 hours * Sugar control * Prednisone reduce to 30 and taper in 7 days * Ceftin 500 twice a day (total 7 days) * Continue her Levoxyl * Keep the head of bed elevated * BIPAP prn, or high flow if needed * PO thiamine, folic acid and b12 daily When able to go to the floor
--- NOTE | 2016-11-16 13:31 | PN- Att Addend ---
Attending Addendum Attending Brief Note Patient seen and examined. Agree with interns assessment and plan. This 71-year-old female with history of severe COPD, history of smoking, alcohol abuse who came in with acute hypoxic respiratory failure, acute COPD exacerbation, pancreatitis, and alcohol withdrawal. Currently doing better. Vitals stable. Has bilateral lower extremity restraints. Recommendations: 1. Continue Ativan as per CIWA protocol 2. Continue by mouth steroids, TRC/nebs. 3. Continue Ceftin complete the course. 4. BiPAP as needed.
--- NOTE | 2016-11-16 14:00 | NUR ---
PT HAS IMPROVED SIGNIFICANTLY SINCE THIS MORNING. CIWA CONTINUES TO BE ZERO. SHE IS ORIENTED TO PERSON, PLACE, SITUATION, AND KNOWS THE YEAR. SHE IS FOLLOWING COMMANDS AND RESPONDING APPROPRIATELY. CALM AND COOPERATIVE. ALL RESTRAINTS WERE DISCONTINUED. SIITER IS STILL AT BEDSIDE. COMPLETE BED BATH GIVEN AND PT AMBULATED TO TOILET WITH ASSIST OF 2 DUE TO NO WALKER. PT CAN BE AX1 WITH RW. DODGE REMOVED AT 1230. SHE VOIDED AND HAD A BM. SHE WAS SITTING IN CHAIR FOR LUNCH. PT TRANSFERRED TO [address] [place] [address] AT 1330. REPORT GIVEN TO MINE ZHAO.
--- NOTE | 2016-11-16 20:38 | NUR ---
PTS BLOOD GLUCOSE 405- MD CLEMENT NOTIFIED. PER MD, TO GIVE SCHEDULED 4 UNITS OF NOVOLOG PER EMAR & RECHECK BLOOD GLUCOSE IN 2 HOURS. WILL CONTINUE TO MONITOR.
--- NOTE | 2016-11-16 21:21 | NUR ---
PT BP 98/50 HR 89. LOPRESSOR 12.5MG DUE AT THIS TIME. HELD LOPRESSOR. PER BATTING MACHINE OPERATOR INSULATION EVELYN TOWNSEND.
--- NOTE | 2016-11-17 07:48 | PN- Housestaff ---
PERICO STACK 11/17/16 0748: Subjective Follow-up For: Acute hypoxic respiratory failure Alcohol detox Pancreatitis Subjective: Patient was transferred out of ICU on 11/16/16 after her agitation and oxygen requirements improved. Patient seems to be doing well this morning she is laying comfortably on the bed. Her sister is discontinued this morning. She is in the by mouth Ativan taper for alcohol detox. Her labs and vitals are reviewed the are stable. Patient has been eating well and has no new complaints Review of Systems Constitutional: Reports: see HPI. Objective Last 24 Hrs of Vital Signs/I&O Vital Signs Date Time Temp Pulse Resp B/P Pulse O2 O2 Flow FiO2 Ox Delivery Rate 11/17 0917 73 135/69 11/17 0808 98.6 73 18 135/69 93 Nasal 2.0L Cannula 11/17 0805 96 Nasal 2.0L Cannula 11/17 0800 Nasal 2.0L Cannula 11/17 0000 Nasal 2.0L Cannula 11/16 2123 89 98/50 11/16 2108 89 98/50 11/16 1600 Nasal 2.0L Cannula 11/16 1600 89 Room Air 11/16 1600 98.4 82 20 102/60 98 Nasal 5.0L Cannula 11/16 1346 97.8 81 20 100/60 95 Intake & Output 11/17 1600 11/17 0800 11/17 0000 Intake Total 100 600 Output Total 400 550 Balance -300 50 Intake, Oral 100 600 Output, Urine 400 550 Physical Exam General Appearance: Alert, Oriented X3, Cooperative Skin: No Rashes, No Breakdown HEENT: Atraumatic Neck: Supple Cardiovascular: Normal S1, Normal S2 Lungs: Normal Air Movement Abdomen: Soft, No Tenderness Extremities: No Edema Current Medications: Current Medications Sig/Liz Start time Last Medication Dose Route Stop Time Status Admin Acetaminophen 650 MG Q6P PRN 11/09 221 AC 11/14 PO 1948 Albuterol Sulfate 3 ML EVERY 4 HRS/AWAKE 11/10 1200 AC 11/17 INH 0803 Aspirin 81 MG DAILY 11/12 1000 AC 11/17 PO 0917 Atorvastatin Calcium 40 MG 1700 11/12 0945 AC 11/16 PO 1632 Cefuroxime Sodium 500 MG Q12 11/11 2200 AC 11/17 PO 11/18 1001 0917 Cinacalcet 30 MG DAILY 11/10 1000 AC 11/17 PO 0918 Enoxaparin Sodium 40 MG DAILY 11/15 1000 AC 11/17 SC 0917 Fenofibrate 145 MG DAILY 11/10 1000 AC 11/17 PO 0918 Folic Acid 1 MG DAILY 11/17 1000 AC PO Furosemide 40 MG .STK-MED ONE 11/16 1219 DC PO 11/16 1220 Furosemide 40 MG ONE ONE 11/16 1145 DC 11/16 PO 11/16 1146 1224 Insulin Aspart 0 AT BEDTIME 11/14 2200 AC 11/16 SC 2048 Insulin Aspart 0 TIDAC 11/14 0800 AC 11/17 SC 0918 Ipratropium [place] 2.5 ML EVERY 4 HRS/AWAKE 11/10 2000 AC 11/17 INH 0803 Levothyroxine Sodium 0.05 MG MoTuWeThFr@11/10 0700 AC 11/17 PO 0641 Levothyroxine Sodium 0.075 MG SuSa@11/09 2145 AC 11/16 PO 0530 Lorazepam 0.5 MG ONCE 11/18 0000 AC PO 11/18 0001 Lorazepam 0.5 MG Q6H 11/17 0000 AC 11/17 PO 11/17 1801 0600 Lorazepam 0 Q1P PRN 11/09 2115 AC 11/16 IV 0348 Metoprolol Tartrate 12.5 MG BID 11/15 2200 AC 11/17 PO 0917 Mirtazapine 7.5 MG AT BEDTIME 11/09 2200 AC 11/16 PO 2109 Morphine Sulfate 2 MG Q6P PRN 11/10 0030 DC 11/16 IV 0530 Multivitamins 1 TAB DAILY 11/17 1000 CAN PO Multivitamins 1 TAB DAILY 11/13 1000 AC 11/17 PO 0917 Omeprazole 40 MG DAILY AC 11/10 0700 AC 11/17 PO 0641 Phosphate 250 MG PC AND AT BEDTIME 11/16 0900 AC 11/17 PO 0917 Prednisone 30 MG DAILY 11/17 1000 AC 11/17 PO 0917 Prednisone 40 MG DAILY 11/14 1016 DC 11/16 PO 0950 Senna 187 MG AT BEDTIME 11/16 0115 AC 11/16 PO 2108 Thiamine HCl 50 MG DAILY 11/17 1000 AC PO Last 24 Hrs of Lab/Pablo Results Last 24 Hrs of Labs/Mics: Laboratory Tests 11/17/16 0640: Anion Gap 3 L, Estimated GFR > 60, BUN/Creatinine Ratio 25.7 H, Phosphorus 4.0 , Magnesium 1.6, CBC w Diff NO MAN DIFF REQ, RBC 3.53 L, MCV 105.8 H, MCH 35.2 H, RDW 13.8, MPV 9.6, Gran % 68.2, Lymphocytes % 25.1, Monocytes % 5.6, Eosinophils % 0.8, Basophils % 0.3, Absolute Granulocytes 7.5 H, Absolute Lymphocytes 2.8, Absolute Monocytes 0.6, Absolute Eosinophils 0.1, Absolute Basophils 0, PUBS MCHC 33.3 Assessment/Plan Assessment: Presentation Patient is 71-year-old female, active smoker with past medical history of COPD on 2.5 L nocturnal O2, alcohol dependence with h/o DT's, alcoholic cardiomyopathy and pancreatitis, HTN, hypercalcemia on cinacalcet, hypothyroidism, B12 deficiency with peripheral neuropathy, presented with chief complaint of gradual worsening of dyspnea on exertion with increasing use of inhalers and daytime use of oxygen. Patient also reported cough associated with chest tightness and wheezing. Patient did not report of any sick contacts at home. She was [facility] admitted to [facility] for COPD exacerbation in September 2015. Patient drinks alcohol every day 2-3 glass, her last drink was yesterday 1 PM. Hospital course in ICU Patient was transferred to ICU on 11/12/16 after she was noted to be extremely agitated requiring increased amounts of Ativan. She was also pale, diaphoretic and minimally responsive to sternal rubs. She was tachycardic to a heart rate of 140 and her oxygen saturations were dropping to 80s. Chest x-ray remonstrated cardiogenic pulmonary edema, for which she was given Lasix and IV fluids which were previously given for pancreatitis were discontinued. During this time her troponins also peaked to 0.80. Cardiology consult service was on board and it was thought that she likely has demand ischemia secondary to tachycardia and hypotension. Active issues: COPD exacerbation Pneumonia Positive troponin, NSTEMI vs demand ischemia Flash pulmonary edema, hx of alcoholic cardiomyopathy Hypotension Sinus tachycardia Alcohol withdrawal Pancreatitis Alcohol detox Patient has been drinking 2-3 glasses of alcohol every day prior to her admission, now her several scores are 0. She is on Ativan taper by mouth. Patient is switched to by mouth multivitamins, folic acid and thiamine. Acute on chronic hypoxic respiratory failure Patient came in with COPD exacerbation with a questionable right middle lobe pneumonia. While she was getting IV fluids for pancreatitis she went into pulmonary edema. In ICU she has been given Lasix based on daily assessments. Pulmonary embolism was ruled out by CTA Her blood cultures remain negative however she was started on antibiotics and she will complete Ceftin for a total of 7 days. Pulmonary consult service was on board. IV steroids are switched to by mouth prednisone on 11/11/16- patient is on a prednisone taper over 7 days. Smoking cessation Patient is counseled over smoking cessation [facility] nebs as needed Demand ischemia Patient reported of chest tightness on admission, her troponins were negative initially however the peaked to 0.80 on 11/12. Cardiology consult service was on board she likely had the mild ischemia. Patient was initially started on heparin drip for 24/48 hours. And also started on metoprolol 25 twice a day which was later decreased to 12.5 twice a day. Cardiac catheterization was not considered at that point due to her multiple medical comorbidities. Patient will likely be a candidate for further ischemic evaluation with nuclear stress test in the future. We'll add low-dose NETTE inhibitor prior to discharge. Pancreatitis CT scan done on 11/09/16 suggestive of acute pancreatitis in the setting of alcohol use Lipase and amylase elevated to 4525 and 744 respectively Patient was kept nothing by mouth and started on Ringer's lactate. However the fluids were stopped as patient went into pulmonary edema. She does not report of any abdominal pain for now. She was on morphine for her pain control. Hypomagnesemia Probably second to alcohol use, Magnesium was repleted aggressively, we'll continue to monitor Hypercalcemia Will continue her Cinacalcet. 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 Patient is kept on fingersticks, this morning her blood sugar was 280+ Her HbA1c was 5.6 however she is on steroids which could be the cause of her hyperglycemia She is on a NovoLog sliding scale we'll continue to monitor her fingersticks. Elevated total bilirubin and AST will continue to monitor DVT ppx Lovenox Full code. Problem List: 1. Alcoholic hepatitis 2. Acute pancreatitis 3. Acute hypoxemic respiratory failure Pain Ratin Pain Location: Not applicable Pain Goal: Pain 4 or less Pain Plan: Tylenol when necessary for pain Tomorrow's Labs & Rationales: None DENICE BERUMEN 11/17/16 1036: Attending MD Review Statement Attending Statement Attending MD Statement: examined this patient, discuss w/resident/PA/MAINTENANCE MILLWRIGHT, agreed w/resident/PA/MAINTENANCE MILLWRIGHT, discussed with family, reviewed EMR data (avail), discussed with nursing, discussed with case mgmt, reviewed images Attending Assessment/Plan: This is a 71-year-old lady with history of significant smoking, severe COPD with asthmatic component, recurrent respiratory failure with COPD exacerbation, more than [id number] smoking history, FEV1 of 0.8 L on 2-3 L nasal cannula at home usually, still ongoing smoking, previous history of significant alcoholism now has been drinking, depression, hypothyroidism on adequate supplementation, hypertension, previous liver failure with alcoholic hepatitis which seems to have resolved, Now with abd pain and wheezing. * Resolved Acute hypoxic resp failure with resolving Acute pulm edema in a lady with high risk for ihd with previous non obs coronary disease, after fluid resusitation for pancreatitis, Acute coronary syndrome could still be a posibility but likely etoh cardiomyopathy * Significant acute pancreatitis with alcohol abuse * Severe COPD with acute exacerbation of COPD * watch for alcohol withdrawal * Resolving hypercalcemia most likely related to multiple issues patient has been on cinacalcet * Hypothyroidism on appropriate supplementation * Hyperlipidemia * Previous history of liver failure / Immunosuppressed state due to alcoholism / Significant fatty liver / Glucose intolerance and B12 deficiency / Peripheral neuropathy. / Previous nonischemic heart disease with previous coronary angiogram which was unremarkable but patient does have cardiomyopathy probably related to previous alcoholism which is mild. PLAN * Lasix daily, Continue nebulizer therapy with ipratropium and albuterol every 8 hours, Sugar control, Prednisone taper * ASa statin, ECHO EF 30-35%. alcohol related cardiomyopathy vs ischemic, f/u cardiology. * Ativan prn, pancreatitis improved clinically. likely alcohol related. * complete Ceftin 500 twice a day (total 7 days) * Keep the head of bed elevated * BIPAP prn, or high flow if needed * PO thiamine, folic acid and b12 daily, resume home meds.
[2016-11-17 07:56] LABS: ABSOLUTE BASOPHIL COUNT 0 /CUMM (0.0-0.2); ABSOLUTE EOSINOPHIL COUNT 0.1 /CUMM (0.0-0.7); ABSOLUTE GRANULOCYTE CT 7.5 /CUMM (1.4-6.5); ABSOLUTE LYMPH COUNT 2.8 /CUMM (1.2-3.4); ABSOLUTE MONOCYTE COUNT 0.6 /CUMM (0.10-0.60); BASOPHIL % 0.3 % (0.0-2.0); EOSINOPHIL % 0.8 % (0-5); GRANULOCYTE % 68.2 % (42.2-75.2); HEMATOCRIT 37.3 % (37-47); MEAN CORPUSCULAR HGB 35.2 PG (27.0-31.0); MEAN CORPUSCULAR HGB CONC 33.3 G/DL (33.0-37.0); MEAN CORPUSCULAR VOLUME 105.8 FL (81.0-99.0); MEAN PLATELET VOLUME 9.6 FL (7.4-10.4); PLATELET COUNT 259 /CUMM (130-400); RBC DISTRIBUTION WIDTH 13.8 % (11.5-14.5); RED BLOOD CELL CT 3.53 /CUMM (4.20-5.40)
[2016-11-17 08:08] VITALS: BP 135/69
--- NOTE | 2016-11-17 08:47 | Transfer of Care Summary ---
Hospital Course Course Hospital Course: 71-year-old female, active smoker with past medical history of COPD on 2.5 L nocturnal O2, severe emphysema with asthmatic component, alcohol dependence with h/o DT's, alcoholic cardiomyopathy and pancreatitis, HTN, hypercalcemia on cinacalcet, hypothyroidism, B12 deficiency with peripheral neuropathy, presented with chief complaint of gradual worsening of dyspnea on exertion with increasing use of inhalers and daytime use of oxygen. Patient also reported cough associated with chest tightness and wheezing. Patient did not report of any sick contacts at home. She was last admitted to [facility] for COPD exacerbation in September 2015. Pt was initially admitted for acute on chronic respiratory failure most likely secondary to pneumonia and COPD exacerbation. She was first started on ceftriaxone and azithromycin, subsequently changed to ceftin. She was initially on solumedrol IV 60 q8, subsequently changed to prednisone 50. Patient drinks alcohol every day (1-2 bottles of wine), her last drink was day prior to admission at 1 PM, and she came in with alcohol level of 11. She was maintained on CIWA. She was also found to have pancreatitis with elevated lipase and amylase, supported by image findings, for which she was hydrated with lactated ringer. She was found to be hypomagnesemic, with her magnesium aggressively repleted. On November 12, around 2am, she was noted to be extremely agitated (given 6mg IV ativan over the past 24 hours as per CIWA). She was also diaphoretic, pale, and minimally responsive to sternal rubs. Vital signs showed a SBP 140s and HR 140s with oxygen saturation occasionally dropping to the mid 80s. She was thus transferred to ICU for close monitoring. CXR consistent with flash pulmonary edema, for which 1 time 20 mg IV lasix was given, and IV fluids discontinued. Pt was maintained on BIPAP overnight. She was given 1X5mg IV metoprolol for her tachycardia. She was then hypotensive with BP 80/doppler, with BP in the am WNL without vasopressors support. Her troponin has increased to 0.16 most likely due to demand ischemia from tachycardia. Due to the hypotension, only a small dose of lasix was given for the pulmonary edema. Although her lactic acid was noted to be 2.5, given significant pulmonary edema, fluids were discontinued. Cap refill was normal. Her main issues in the ICU were flash pulmonary edema, positive troponin, concerning for NSTEMI, hypotension, and alcohol withdrawal. For the pulmonary edema, she received IV lasix as tolerated, with improvement in CHF findings on CXR. For the positive troponin, max of 0.80, she was started on heparin drip, that has since been discontinued. ACEI would need to be started prior to discharge, and she likely needs further workup as outpatient. The hypotension was thought to be most likely secondary to BB given for her tachycardia. In the ICU, she was started on metoprolol 25 bid for tachycardia, subsequently decreased to 12.5 bid due to hypotension. She is on PO ativan taper for alcohol withdrawal, with IV ativan PRN. Assessment/Plan: 71-year-old female, active smoker with past medical history of COPD on 2.5 L nocturnal O2, severe emphysema with asthmatic component, alcohol dependence with h/o DT's, alcoholic cardiomyopathy and pancreatitis, HTN, hypercalcemia on cinacalcet, hypothyroidism, B12 deficiency with peripheral neuropathy, admitted to telemetry for acute on chronic respiratory failure likely secondary to COPD exacerbation and PNA, with sinus tachycardia, PE ruled out by CTA, subsequently found to have pancreatitis, then transferred to ICU for flash pulmonary edema, positive troponin, concerning for NSTEMI, hypotension. She is also withdrawing from alcohol. Active issues: # COPD exacerbation # Pneumonia # Positive troponin, NSTEMI vs demand ischemia # Flash pulmonary edema, hx of alcoholic cardiomyopathy # Hypotension # Sinus tachycardia # Alcohol withdrawal # Pancreatitis UE restrain [facility] # Alcohol withdrawal - Heavy alcohol use with serum alcohol 11 on admission * PO ativan taper started. IV ativan PRN * Folic acid, thiamine, multivitamin Respiratory: # COPD exacerbation # Pneumonia * Bipap as needed, hiflow oxygen as needed * Continue ceftin 500 bid for total of 7 days * Prednisone 40 mg daily (taper in 7 days) Cardiovascular # Positive troponin, most likely demand ischemia given significant tachycardia, with flash pulmonary edema, concerning for NSTEMI, hx of alcoholic cardiomyopathy - Stool guaiac negative - 11/12/16 echocardiogram: Endocardial border visualization is limited. Definity contrast was used. Moderate septal hypokinesis with paradoxical sepal motion. Left ventricular ejection fraction is estimated at 30- 35 %. * Max trop 0.8, has trended down * Heparin drip started as per Dr. Soto (abnormal septal movements on echocardiogram), has now been discontinued. * Aspirin and statin started, monitor liver function * If pt cannot consent, please call Sun, her niece, at her cell, . She is agreeable to transferring pt to cath if need be. * Add low dose ACEI prior to dc. Likely need further workup as outpatient # Flash pulmonary edema - 11/12: Given 1 X 20 mg IV lasix due to hypotension, then another 1 X 40 mg IV lasix once BP improved. 11/13: 2 X 40 mg IV lasix . 11/14: 1 X 40 mg IV lasix. * Consider lasix as needed # Hypotension down to 80 over doppler (resolved) - Could be due to metoprolol given for tachycardia - Lactic acid 2.5 --> 1.5. Fluids stopped due to flash pulmonary edema * Continue to monitor BP closely # Sinus tachycardia (up to 140s) * Metoprolol 25 mg BID started on 11/13, decreased to 12.5 bid due to hypotension Alimentary # Pancreatitis * Can give low dose morphine Endocrine # Hypercalcemia * Will continue her Cinacalcet. # Hyperglycemia. - Her HbA1c 5.6 * Patient is kept on fingersticks * On novolog tidac # Hx of hypothyroidism - TSH: 2.830 /FT4: 1.4 * Continue levothyroxine Metabolic # Hypomagnesemia - Mag 0.9 on admission, probably secondary to alcohol use - Keep Mg > 2 * Replete as needed # Hypokalemia - Keep K > 4 * Replete as needed Diet: CC2 DVT ppx: alps and lovenox FULL CODE Consults: cardio, pulm Labs: BEP mag and phos electrolyte abnormality, alcoholic Attending MD Review Statement Documenting Attending: JAVAN HOFFMANN,PAMELLA Gordon
--- NOTE | 2016-11-17 09:45 | PN- Pulmonary ---
Subjective HPI/Critical Care Issues: Doing better Afebrile No cough no wheezing Less tremulous Once to eat Oxygenation symptom improved Review of Systems: Eyes no blurred or double vision Ears no deafness or ringing Nose and throat no recurrent sinusitis Lungs per history of present illness Heart per history of present illness Abdomen no nausea vomiting Musculoskeletal occasional muscle and joint pains Psych no anxiety or depression Neuro without recurrent headache or seizures Endocrine no heat or cold intolerance Objective Current Medications: Current Medications Sig/Liz Start time Last Medication Dose Route Stop Time Status Admin Acetaminophen 650 MG Q6P PRN 11/09 2215 AC 11/14 PO 1948 Albuterol Sulfate 3 ML EVERY 4 HRS/AWAKE 11/10 1200 AC 11/17 INH 0803 Aspirin 81 MG DAILY 11/12 1000 AC 11/17 PO 0917 Atorvastatin Calcium 40 MG 1700 11/12 0945 AC 11/16 PO 1632 Cefuroxime Sodium 500 MG Q12 11/11 2200 AC 11/17 PO 11/18 1001 0917 Cinacalcet 30 MG DAILY 11/10 1000 AC 11/17 PO 0918 Enoxaparin Sodium 40 MG DAILY 11/15 1000 AC 11/17 SC 0917 Fenofibrate 145 MG DAILY 11/10 1000 AC 11/17 PO 0918 Folic Acid 1 MG DAILY 11/17 1000 AC PO Furosemide 40 MG .STK-MED ONE 11/16 1219 DC PO 11/16 1220 Furosemide 40 MG ONE ONE 11/16 1145 DC 11/16 PO 11/16 1146 1224 Insulin Aspart 0 AT BEDTIME 11/140 AC 11/16 SC 2048 Insulin Aspart 0 TIDAC 11/14 0800 AC 11/17 SC 0918 Ipratropium [place] 2.5 ML EVERY 4 HRS/AWAKE 11/10 2000 AC 11/17 INH 0803 Levothyroxine Sodium 0.05 MG MoTuWeThFr@00 11/10 0700 AC 11/17 PO 0641 Levothyroxine Sodium 0.075 MG SuSa@11/09 2145 AC 11/16 PO 0530 Lorazepam 0.5 MG ONCE 11/18 0000 AC PO 11/18 0001 Lorazepam 0.5 MG Q6H 11/17 0000 AC 11/17 PO 11/17 1801 0600 Lorazepam 0 Q1P PRN 11/09 2115 AC 11/16 IV 0348 Metoprolol Tartrate 12.5 MG BID 11/15 2200 AC 11/17 PO 0917 Mirtazapine 7.5 MG AT BEDTIME 11/09 2200 AC 11/16 PO 2109 Morphine Sulfate 2 MG Q6P PRN 11/10 0030 DC 11/16 IV 0530 Multivitamins 1 TAB DAILY 11/17 1000 CAN PO Multivitamins 1 TAB DAILY 11/13 1000 AC 11/17 PO 0917 Omeprazole 40 MG DAILY AC 11/10 0700 AC 11/17 PO 0641 Phosphate 250 MG PC AND AT BEDTIME 11/16 0900 AC 11/17 PO 0917 Prednisone 30 MG DAILY 11/17 1000 AC 11/17 PO 0917 Prednisone 40 MG DAILY 11/14 1016 DC 11/16 PO 0950 Senna 187 MG AT BEDTIME 11/16 0115 AC 11/16 PO 2108 Thiamine HCl 50 MG DAILY 11/17 1000 AC PO Vital Signs & I&O Last 24 Hrs of Vitals and I&O: Vital Signs Date Time Temp Pulse Resp B/P Pulse O2 O2 Flow FiO2 Ox Delivery Rate 11/17 0917 73 135/69 11/17 0808 98.6 73 18 135/69 93 Nasal 2.0L Cannula 11/17 0805 96 Nasal 2.0L Cannula 11/17 0800 Nasal 2.0L Cannula 11/17 0000 Nasal 2.0L Cannula 11/16 2123 89 98/50 11/16 2108 89 98/50 11/16 1600 Nasal 2.0L Cannula 11/16 1600 89 Room Air 11/16 1600 98.4 82 20 102/60 98 Nasal 5.0L Cannula 11/16 1346 97.8 81 20 100/60 95 11/16 1055 85 98/54 Intake & Output 11/17 1600 11/17 0800 11/17 0000 Intake Total 100 600 Output Total 400 550 Balance -300 50 Intake, Oral 100 600 Output, Urine 400 550 Laboratory Tests 11/17 11/16 0640 0450 Chemistry Sodium (137 - 145 mmol/L) 134 L 134 L Potassium (3.5 - 5.1 mmol/L) 3.8 4.2 Chloride (98 - 107 mmol/L) 101 100 Carbon Dioxide (22 - 30 mmol/L) 30 32 H Anion Gap (5 - 16) 3 L 2 L BUN (7 - 17 mg/dL) 18 H 22 H Creatinine (0.5 - 1.0 mg/dL) 0.7 0.8 Estimated GFR (>60 ml/min) > 60 > 60 BUN/Creatinine Ratio (7 - 25 %) 25.7 H 27.5 H Phosphorus (2.5 - 4.5 mg/dL) 4.0 Magnesium (1.6 - 2.3 mg/dL) 1.6 1.9 Hematology CBC w Diff NO MAN DIFF REQ WBC (4.8 - 10.8 /CUMM) 11.0 H RBC (4.20 - 5.40 /CUMM) 3.53 L Hgb (12.0 - 16.0 G/DL) 12.4 Hct (37 - 47 %) 37.3 MCV (81.0 - 99.0 FL) 105.8 H MCH (27.0 - 31.0 PG) 35.2 H RDW (11.5 - 14.5 %) 13.8 Plt Count (130 - 400 /CUMM) 259 MPV (7.4 - 10.4 FL) 9.6 Gran % (42.2 - 75.2 %) 68.2 Lymphocytes % (20.5 - 51.1 %) 25.1 Monocytes % (1.7 - 9.3 %) 5.6 Eosinophils % (0 - 5 %) 0.8 Basophils % (0.0 - 2.0 %) 0.3 Absolute Granulocytes (1.4 - 6.5 /CUMM) 7.5 H Absolute Lymphocytes (1.2 - 3.4 /CUMM) 2.8 Absolute Monocytes (0.10 - 0.60 /CUMM) 0.6 Absolute Eosinophils (0.0 - 0.7 /CUMM) 0.1 Absolute Basophils (0.0 - 0.2 /CUMM) 0 PUBS MCHC (33.0 - 37.0 G/DL) 33.3 Impression/Plan Impression/Plan Impression/Plan: Physical Exam General Appearance Alert, Oriented X2, Cooperative, Moderate Distress dyspnea Skin No Rashes, No Significant Lesion HEENT Atraumatic, PERRLA, EOMI, Mucous Membr. moist/pink Neck Supple, +2 Carotid Pulse wo Bruit Lymphatic Cervical nl Cardiovascular Tachycarid with normal S1/S2 Lungs Diffuse wheezing in all lung bridges with decreased air entry bilaterally. Decreased basal breath sounds. with crackles Abdomen Normal Bowel Sounds, Soft, Petechia noted on abdomen., tenderness to palpation of epigastric region Neurological Normal Speech, Normal Tone Extremities No Clubbing, No Cyanosis, No Edema, Normal Pulses, No Tenderness/ Swelling Vascular Pulses Symmetrical This is a 71-year-old lady with history of significant smoking, severe COPD with asthmatic component, recurrent respiratory failure with COPD exacerbation, more than [id number] smoking history, FEV1 of 0.8 L on 2-3 L nasal cannula at home usually, still ongoing smoking, previous history of significant alcoholism now has been drinking, depression, hypothyroidism on adequate supplementation, hypertension, previous liver failure with alcoholic hepatitis which seems to have resolved, Now with abd pain and wheezing * Resolved Acute hypoxic resp failure with resolving Acute pulm edema in a lady with high risk for ihd with previous non obs coronary disease, after fluid resusitation for pancreatitis, Acute coronary syndrome could still be a posibility but likely etoh cardiomyopathy * Improving acute pancreatitis with ongoing drinking slowly improving * Severe COPD with resolving acute exacerbation of COPD * Cardiomyopathy with newly reduced ejection fraction probably alcohol induced rule out acute coronary syndrome with EF now of 35% differential diagnoses include stress-induced cardiomyopathy versus alcoholic cardiomyopathy versus coronary artery disease, cardiology following * Right middle lobe infiltrate probably aspiration pneumonia upon admission * Significant alcoholism with active withdrawal, slowly improving * Sinus tachycardia, improving * Resolving hypercalcemia most likely related to multiple issues patient has been on cinacalcet * Ongoing nicotine use * Hypothyroidism on appropriate supplementation * Hyperlipidemia * Previous history of liver failure / Immunosuppressed state due to alcoholism / Significant fatty liver / Glucose intolerance and B12 deficiency / Peripheral neuropathy. / Previous nonischemic heart disease with previous coronary angiogram which was unremarkable but patient does have cardiomyopathy probably related to previous alcoholism which is mild, watch for chf RECOMMENDATION * Lasix 20 mg every other day * ASa statin, * Ativan 0.5 mg every 8 tomorrow, every 12 the day after, daily for 3 days and stop * Continue nebulizer therapy with ipratropium and albuterol every 8 hours * Sugar control * Taper prednisone in the next 5 days * Discontinue Ceftin 500 twice a day after total of 7 days * Continue her Levoxyl * Keep the head of bed elevated * PO folic acid and b12 daily * Cardiology decide on further workup whether she would need inpatient or outpatient follow-up with either a nuclear stress test or a cardiac cath
--- NOTE | 2016-11-17 11:19 | PN- Cardiology ---
Subjective Subjective: Doing better. More alert. Denies chest pain, palpitations, or dyspnea. Laying flat. Objective Vital Signs and I&Os Vital Signs Date Time Temp Pulse Resp B/P Pulse O2 O2 Flow FiO2 Ox Delivery Rate 11/17 0917 73 135/69 11/17 0808 98.6 73 18 135/69 93 Nasal 2.0L Cannula 11/17 0805 96 Nasal 2.0L Cannula 11/17 0800 Nasal 2.0L Cannula 11/17 0000 Nasal 2.0L Cannula 11/16 2123 89 98/50 11/16 2108 89 98/50 11/16 1600 Nasal 2.0L Cannula 11/16 1600 89 Room Air 11/16 1600 98.4 82 20 102/60 98 Nasal 5.0L Cannula 11/16 1346 97.8 81 20 100/60 95 Intake & Output 11/17 1600 11/17 0800 11/17 0000 11/16 1600 11/16 0800 11/16 0000 Intake Total 100 600 680 120 120 Output Total 400 550 1 200 350 Balance -300 50 679 -80 -230 Intake, Oral 100 600 680 120 120 Number 1 Bowel Movements Output, Stool 1 Output, Urine 400 550 0 200 350 Physical Exam: General: no apparent distress. Eyes: No obvious scleral icterus. HEENT: No jugular venous distention or abnormal jugular venous pulsations. Cardiovascular: Normal intensity S1/S2. Regular Respiratory: No rales or rhonchi Abdomen: Distended without guarding Musculoskeletal: No clubbing or cyanosis noted, no edema Skin: Warm Lymph: No gross lymphadenopathy. Current Medications: Current Medications Sig/Liz Start time Last Medication Dose Route Stop Time Status Admin Acetaminophen 650 MG Q6P PRN 11/09 2215 AC 11/14 PO 1948 Albuterol Sulfate 3 ML EVERY 4 HRS/AWAKE 11/10 1200 AC 11/17 INH 1107 Aspirin 81 MG DAILY 11/12 1000 AC 11/17 PO 0917 Atorvastatin Calcium 40 MG 1700 11/12 0945 AC 11/16 PO 1632 Cefuroxime Sodium 500 MG Q12 11/11 2200 AC 11/17 PO 11/18 1001 0917 Cinacalcet 30 MG DAILY 11/10 1000 AC 11/17 PO 0918 Enoxaparin Sodium 40 MG DAILY 11/15 1000 AC 11/17 SC 0917 Fenofibrate 145 MG DAILY 11/10 1000 AC 11/17 PO 0918 Folic Acid 1 MG DAILY 11/17 1000 AC PO Furosemide 40 MG .STK-MED ONE 11/16 1219 DC PO 11/16 1220 Furosemide 40 MG ONE ONE 11/16 1145 DC 11/16 PO 11/16 1146 1224 Insulin Aspart 0 AT BEDTIME 11/14 2200 AC 11/16 SC 2048 Insulin Aspart 0 TIDAC 11/14 0800 AC 11/17 SC 0918 Ipratropium [place] 2.5 ML EVERY 4 HRS/AWAKE 11/10 2000 AC 11/17 INH 1107 Levothyroxine Sodium 0.05 MG MoTuWeThFr@00 11/10 0700 AC 11/17 PO 0641 Levothyroxine Sodium 0.075 MG SuSa@11/09 2145 AC 11/16 PO 0530 Lorazepam 0.5 MG ONCE 11/18 0000 AC PO 11/18 0001 Lorazepam 0.5 MG Q6H 11/17 0000 AC 11/17 PO 11/17 1801 0600 Lorazepam 0 Q1P PRN 11/09 2115 AC 11/16 IV 0348 Metoprolol Tartrate 12.5 MG BID 11/15 2200 AC 11/17 PO 0917 Mirtazapine 7.5 MG AT BEDTIME 11/09 2200 AC 11/16 PO 2109 Morphine Sulfate 2 MG Q6P PRN 11/10 0030 DC 11/16 IV 0530 Multivitamins 1 TAB DAILY 11/17 1000 CAN PO Multivitamins 1 TAB DAILY 11/13 1000 AC 11/17 PO 0917 Omeprazole 40 MG DAILY AC 11/10 0700 AC 11/17 PO 0641 Phosphate 250 MG PC AND AT BEDTIME 11/16 0900 AC 11/17 PO 0917 Prednisone 30 MG DAILY 11/17 1000 AC 11/17 PO 0917 Prednisone 40 MG DAILY 11/14 1016 DC 11/16 PO 0950 Senna 187 MG AT BEDTIME 11/16 0115 AC 11/16 PO 2108 Thiamine HCl 50 MG DAILY 11/17 1000 AC PO Results Last 48 Hrs of Labs/Mics: Laboratory Tests 11/17/16 0640: Anion Gap 3 L, Estimated GFR > 60, BUN/Creatinine Ratio 25.7 H, Phosphorus 4.0 , Magnesium 1.6, CBC w Diff NO MAN DIFF REQ, RBC 3.53 L, MCV 105.8 H, MCH 35.2 H, RDW 13.8, MPV 9.6, Gran % 68.2, Lymphocytes % 25.1, Monocytes % 5.6, Eosinophils % 0.8, Basophils % 0.3, Absolute Granulocytes 7.5 H, Absolute Lymphocytes 2.8, Absolute Monocytes 0.6, Absolute Eosinophils 0.1, Absolute Basophils 0, PUBS MCHC 33.3 11/16/16 0450: Anion Gap 2 L, Estimated GFR > 60, BUN/Creatinine Ratio 27.5 H, Magnesium 1.9 Recent Imaging Studies: Telemetry tracings were personally reviewed and shows sinus rhythm with occasional PVCs Assessment/Plan Assessment/Plan 1. EtOH pancreatitis 2. Possible pneumonia 3. New cardiomyopathy of unclear etiology, differential includes EtOH cardiomyopathy, stress-induced cardiomyopathy, or ischemic cardiomyopathy 4. Chronic alcohol abuse 5. Elevated troponins possibly due to demand ischemia versus NSTEMI 6. COPD 7. Hypomagnesemia Continues to improve. OK to use Lasix 20 mg every other day to prevent volume overload. Continue on the low-dose beta bety and recommend adding lisinopril 2.5 mg by mouth daily. Continue on aspirin and statin therapy. Plan will be for ischemic evaluation with nuclear stress test as an outpatient. Discussed the critical importance of avoiding EtOH. Will plan for repeat assessment of ejection fraction in the future as an outpatient. Andres Soto MD [facility] Continue telemetry? No
[2016-11-17 16:54] VITALS: BP 114/60
[2016-11-17 23:15] VITALS: BP 110/60
--- NOTE | 2016-11-18 07:30 | PN- Housestaff ---
PERICO STACK 11/18/16 0730: Subjective Follow-up For: Alcohol detox Acute hypoxic respiratory failure Pancreatitis Subjective: Patient seen and examined this morning. She was sitting calmly in the bed however the nurse later reported that she was getting out of the bed. I went his examined the patient. Patient is cognizant of her surroundings and she promised that she would not get out of bed and call the nurse instead. Patient reports she is feeling better she does not have any new complaints. Review of Systems Constitutional: Reports: see HPI. Objective Last 24 Hrs of Vital Signs/I&O Vital Signs Date Time Temp Pulse Resp B/P Pulse O2 O2 Flow FiO2 Ox Delivery Rate 11/18 0923 96 Nasal 2.0L Cannula 11/18 0850 81 136/60 11/18 0849 81 136/60 11/18 0839 97.4 69 18 140/85 94 Nasal 2.0L Cannula 11/18 0800 Nasal 2.0L Cannula 11/18 0000 95 Nasal 2.0L Cannula 11/17 2315 98.1 70 18 110/60 95 Nasal Cannula 11/17 2132 85 110/60 11/17 1654 98.1 76 18 114/60 94 Room Air 11/17 1643 77 110/62 11/17 1600 Nasal 2.0L Cannula 11/17 1600 95 Nasal 2.0L Cannula Intake & Output 11/18 1600 11/18 0800 11/18 0000 Intake Total 100 530 Output Total 350 Balance 100 180 Intake, Oral 100 530 Number 1 Bowel Movements Output, Urine 350 Physical Exam General Appearance: Alert, Oriented X3, Cooperative, No Acute Distress Skin: No Rashes, No Breakdown HEENT: Atraumatic Neck: Supple Cardiovascular: Normal S1, Normal S2 Lungs: Clear to Auscultation, Normal Air Movement Abdomen: Soft, No Tenderness Neurological: Normal Speech Extremities: No Edema Current Medications: Current Medications Sig/Liz Start time Last Medication Dose Route Stop Time Status Admin Acetaminophen 650 MG Q6P PRN 11/095 AC 11/14 PO 1948 Albuterol Sulfate 3 ML EVERY 4 HRS/AWAKE 11/10 1200 AC 11/18 INH 1252 Aspirin 81 MG DAILY 11/12 1000 AC 11/18 PO 0846 Atorvastatin Calcium 40 MG 1700 11/12 0945 AC 11/17 PO 1643 Cefuroxime Sodium 500 MG Q12 11/11 2200 DC 11/17 PO 11/18 1001 2132 Cinacalcet 30 MG DAILY 11/10 1000 AC 11/18 PO 0852 Enoxaparin Sodium 40 MG DAILY 11/15 1000 AC 11/18 SC 0853 Fenofibrate 145 MG DAILY 11/10 1000 AC 11/18 PO 0851 Folic Acid 1 MG DAILY 11/17 1000 AC 11/18 PO 0846 Furosemide 20 MG Q48 11/18 1145 AC 11/18 PO 1232 Insulin Aspart 0 AT BEDTIME 11/14 2200 AC 11/17 SC 2131 Insulin Aspart 0 TIDAC 11/14 0800 AC 11/18 SC 1232 Ipratropium [place] 2.5 ML EVERY 4 HRS/AWAKE 11/10 2000 AC 11/18 INH 1251 Levothyroxine Sodium 0.05 MG MoTuWeThFr@0700 11/10 0700 AC 11/18 PO 0834 Levothyroxine Sodium 0.075 MG SuSa@0700 11/09 2145 AC 11/16 PO 0530 Lisinopril 2.5 MG DAILY 11/17 1448 AC 11/18 PO 0850 Lorazepam 0.5 MG BID 11/18 1000 AC 11/18 PO 11/25 0959 1232 Lorazepam 0.5 MG ONCE 11/18 0000 CAN PO 11/18 0001 Lorazepam 0.5 MG TID 11/17 1600 DC 11/17 PO 11/18 0000 2132 Lorazepam 0.5 MG Q6H 11/17 0000 DC 11/17 PO 11/17 1801 1223 Lorazepam 0 Q1P PRN 11/09 2115 AC 11/18 IV 0828 Metoprolol Tartrate 12.5 MG BID 11/15 2200 AC 11/18 PO 0849 Mirtazapine 7.5 MG AT BEDTIME 11/09 2200 AC 11/17 PO 2132 Multivitamins 1 TAB DAILY 11/13 1000 AC 11/18 PO 0851 Omeprazole 40 MG DAILY AC 11/10 0700 AC 11/18 PO 0834 Patient Medication 1 ED .STK-MED ONE 11/18 1353 DC Teaching ED 11/18 1354 Phosphate 250 MG PC AND AT BEDTIME 11/16 0900 AC 11/18 PO 1233 Prednisone 10 MG DAILY 11/22 1000 AC PO 11/24 1001 Prednisone 20 MG DAILY 11/18 1000 AC 11/18 PO 11/21 1001 0850 Prednisone 30 MG DAILY 11/17 1000 DC 11/17 PO 0917 Senna 187 MG AT BEDTIME 11/16 0115 AC 11/17 PO 2131 Thiamine HCl 50 MG DAILY 11/17 1000 AC 11/18 PO 0851 Assessment/Plan Assessment: Presentation Patient is 71-year-old female, active smoker with past medical history of COPD on 2.5 L nocturnal O2, alcohol dependence with h/o DT's, alcoholic cardiomyopathy and pancreatitis, HTN, hypercalcemia on cinacalcet, hypothyroidism, B12 deficiency with peripheral neuropathy, presented with chief complaint of gradual worsening of dyspnea on exertion with increasing use of inhalers and daytime use of oxygen. Patient also reported cough associated with chest tightness and wheezing. Patient did not report of any sick contacts at home. She was last admitted to [facility] for COPD exacerbation in September 2015. Patient drinks alcohol every day 2-3 glass, her last drink was yesterday 1 PM. Hospital course in ICU Patient was transferred to ICU on 11/12/16 after she was noted to be extremely agitated requiring increased amounts of Ativan. She was also pale, diaphoretic and minimally responsive to sternal rubs. She was tachycardic to a heart rate of 140 and her oxygen saturations were dropping to 80s. Chest x-ray remonstrated cardiogenic pulmonary edema, for which she was given Lasix and IV fluids which were previously given for pancreatitis were discontinued. During this time her troponins also peaked to 0.80. Cardiology consult service was on board and it was thought that she likely has demand ischemia secondary to tachycardia and hypotension. Active issues: COPD exacerbation Pneumonia Positive troponin, NSTEMI vs demand ischemia Flash pulmonary edema, hx of alcoholic cardiomyopathy Hypotension Sinus tachycardia Alcohol withdrawal Pancreatitis Alcohol detox Patient has been drinking 2-3 glasses of alcohol every day prior to her admission, now her several scores are 0. She is on Ativan taper by mouth. Patient is switched to by mouth multivitamins, folic acid and thiamine. Patient continues to be on Ativan taper. Will continue to monitor her. Acute on chronic hypoxic respiratory failure Patient came in with COPD exacerbation with a questionable right middle lobe pneumonia. While she was getting IV fluids for pancreatitis she went into pulmonary edema. In ICU she has been given Lasix based on daily assessments. She is getting Lasix 20 mg by mouth every other day. Pulmonary embolism was ruled out by CTA Her blood cultures remain negative however she was started on antibiotics and she will complete Ceftin for a total of 7 days. Pulmonary consult service was on board. IV steroids are switched to by mouth prednisone on 11/11/16- patient is on a prednisone taper over 7 days. Smoking cessation Patient is counseled over smoking cessation [facility] nebs as needed Demand ischemia Patient reported of chest tightness on admission, her troponins were negative initially however the peaked to 0.80 on 11/12. Cardiology consult service was on board she likely had the mild ischemia. Patient was initially started on heparin drip for 24/48 hours. And also started on metoprolol 25 twice a day which was later decreased to 12.5 twice a day. Cardiac catheterization was not considered at that point due to her multiple medical comorbidities. Patient will likely be a candidate for further ischemic evaluation with nuclear stress test in the future. Lisinopril 2.5 mg daily is added. Pancreatitis CT scan done on 11/09/16 suggestive of acute pancreatitis in the setting of alcohol use Lipase and amylase elevated to 4525 and 744 respectively Patient was kept nothing by mouth and started on Ringer's lactate. However the fluids were stopped as patient went into pulmonary edema. She does not report of any abdominal pain for now. She was on morphine for her pain control. Hypomagnesemia Probably second to alcohol use, Magnesium was repleted aggressively, we'll continue to monitor Hypercalcemia Will continue her Cinacalcet. She follows Dr. culp as her recreation specialist Hyperglycemia. Patient is kept on fingersticks, this morning her blood sugar was 280+ Her HbA1c was 5.6 however she is on steroids which could be the cause of her hyperglycemia She is on a NovoLog sliding scale we'll continue to monitor her fingersticks. Elevated total bilirubin and AST will continue to monitor DVT ppx Lovenox Full code. Problem List: 1. Acute hypoxemic respiratory failure Pain Ratin Pain Location: Not applicable Pain Goal: Pain 4 or less Pain Plan: Tylenol when necessary for pain Tomorrow's Labs & Rationales: None DENICE BERUMEN 11/18/16 1130: Attending MD Review Statement Attending Statement Attending MD Statement: examined this patient, discuss w/resident/PA/SKEIN WINDER, agreed w/resident/PA/SKEIN WINDER, discussed with family, reviewed EMR data (avail), discussed with nursing, discussed with case mgmt, reviewed images Attending Assessment/Plan: This is a 71-year-old lady with history of significant smoking, severe COPD with asthmatic component, recurrent respiratory failure with COPD exacerbation, more than [id number] smoking history, FEV1 of 0.8 L on 2-3 L nasal cannula at home usually, still ongoing smoking, previous history of significant alcoholism now has been drinking, depression, hypothyroidism on adequate supplementation, hypertension, previous liver failure with alcoholic hepatitis which seems to have resolved, Now with abd pain and wheezing. * Resolved Acute hypoxic resp failure with resolving Acute pulm edema in a lady with high risk for ihd with previous non obs coronary disease, after fluid resusitation for pancreatitis, Acute coronary syndrome could still be a posibility but likely etoh cardiomyopathy * Significant acute pancreatitis with alcohol abuse * Severe COPD with acute exacerbation of COPD * watch for alcohol withdrawal * Resolving hypercalcemia most likely related to multiple issues patient has been on cinacalcet * Hypothyroidism on appropriate supplementation * Hyperlipidemia * Previous history of liver failure / Immunosuppressed state due to alcoholism / Significant fatty liver / Glucose intolerance and B12 deficiency / Peripheral neuropathy. / Previous nonischemic heart disease with previous coronary angiogram which was unremarkable but patient does have cardiomyopathy probably related to previous alcoholism which is mild. PLAN * Lasix every other day, Prednisone taper * ASa statin, ECHO EF 30-35%. alcohol related cardiomyopathy vs ischemic, cardiology recommend stress test as outpatient. * Ativan prn, pancreatitis improved clinically. likely alcohol related. * complete Ceftin 500 twice a day (total 7 days) * PO thiamine, folic acid and b12 daily, resume home meds.
[2016-11-18] MEDS ORDERED: ASPIRIN81 M4 PO (07:53)
[2016-11-18] MEDS ORDERED: ATORVASTATIN CA40 M1 PO (07:53)
[2016-11-18] MEDS ORDERED: METOPROLOL TART25 M1 PO (07:53)
[2016-11-18] MEDS ORDERED: PREDNISONE10 M2 PO (07:53)
[2016-11-18] MEDS ORDERED: LISINOPRIL2.5 M1 PO (07:53)
[2016-11-18] MEDS ORDERED: LASIX20 M1 PO (07:53)
--- NOTE | 2016-11-18 07:55 | Patient Discharge Instructions ---
See Addendum Discharge Instructions General Discharge Information Special Instructions: Please follow up with PCP, commercial sales specialist Dr. Sullivan, Cardiology Dr. Altaf Corrigan Acute Coronary Syndrome Inclusion Criteria At DC or during hospital stay patient has or had the following: ACS DIAGNOSIS No Discharge Core Measures Meds if any: Prescribed or Continued at Discharge Meds if any: NOT Prescribed or Continued at Discharge Congestive Heart Failure Inclusion Criteria At DC or during hospital stay patient has or had the following: CHF DIAGNOSIS No Discharge Core Measures Meds if any: Prescribed or Continued at Discharge Meds if any: NOT Prescribed or Continued at Discharge Cerebrovascular accident Inclusion Criteria At DC or during hospital stay patient has or had the following: CVA/TIA Diagnosis No Discharge Core Measures Meds if any: Prescribed or Continued at Discharge Meds if any: NOT Prescribed or Continued at Discharge Venous thromboembolism Inclusion Criteria VTE Diagnosis No VTE Type NONE VTE Confirmed by (Test) NONE Discharge Core Measures - Per Current guidelines, there needs to be overlap - treatment for the first 5 days of Warfarin therapy. - If discharged on Warfarin prior to 5 days of - overlap therapy, the patient will need to be - assessed for post discharge needs including - *Post discharge parental anticoagulation - *Warfarin and/or parental anticoagulation education - *Follow up date to check INR post discharge At least 5 days overlap therapy as Inpatient No Meds if any: Prescribed or Continued at Discharge Note: Overlap Therapy is Warfarin and Anticoagulant Meds if any: NOT Prescribed or Continued at Discharge
[2016-11-18 08:39] VITALS: BP 140/85
--- NOTE | 2016-11-18 08:57 | PN- Pulmonary ---
Subjective HPI/Critical Care Issues: Did have mild confusion last night Much improved this morning Afebrile Does not complain of any chest pain Oxygen saturation is improving Blood pressures stable All the data reviewed blood work from this morning pending Objective Current Medications: Current Medications Sig/Liz Start time Last Medication Dose Route Stop Time Status Admin Acetaminophen 650 MG Q6P PRN 11/09 2215 AC 11/14 PO 1948 Albuterol Sulfate 3 ML EVERY 4 HRS/AWAKE 11/10 1200 AC 11/17 INH 2100 Aspirin 81 MG DAILY 11/12 1000 AC 11/18 PO 0846 Atorvastatin Calcium 40 MG 1700 11/12 0945 AC 11/17 PO 1643 Cefuroxime Sodium 500 MG Q12 11/11 2200 DC 11/17 PO 11/18 1001 2132 Cinacalcet 30 MG DAILY 11/10 1000 AC 11/18 PO 0852 Enoxaparin Sodium 40 MG DAILY 11/15 1000 AC 11/18 SC 0853 Fenofibrate 145 MG DAILY 11/10 1000 AC 11/18 PO 0851 Folic Acid 1 MG DAILY 11/17 1000 AC 11/18 PO 0846 Insulin Aspart 0 AT BEDTIME 11/14 2200 AC 11/17 SC 2131 Insulin Aspart 0 TIDAC 11/14 0800 AC 11/18 SC 0846 Ipratropium [place] 2.5 ML EVERY 4 HRS/AWAKE 11/10 2000 AC 11/17 INH 2100 Levothyroxine Sodium 0.05 MG MoTuWeThFr@0700 11/10 0700 AC 11/18 PO 0834 Levothyroxine Sodium 0.075 MG SuSa@0700 11/09 2145 AC 11/16 PO 0530 Lisinopril 2.5 MG DAILY 11/17 1448 AC 11/18 PO 0850 Lorazepam 0.5 MG BID 11/18 1000 AC PO 11/25 0959 Lorazepam 0.5 MG ONCE 11/18 0000 CAN PO 11/18 0001 Lorazepam 0.5 MG TID 11/17 1600 DC 11/17 PO 11/18 0000 2132 Lorazepam 0.5 MG Q6H 11/17 0000 DC 11/17 PO 11/17 1801 1223 Lorazepam 0 Q1P PRN 11/09 2115 AC 11/18 IV 0828 Magnesium Oxide 400 MG ONE ONE 11/17 1130 DC 11/17 PO 11/17 1131 1223 Metoprolol Tartrate 12.5 MG BID 11/15 2200 AC 11/18 PO 0849 Mirtazapine 7.5 MG AT BEDTIME 11/09 2200 AC 11/17 PO 2132 Multivitamins 1 TAB DAILY 11/13 1000 AC 11/18 PO 0851 Omeprazole 40 MG DAILY AC 11/10 0700 AC 11/18 PO 0834 Patient Medication 1 ED .STK-MED ONE 11/17 1349 DC Teaching ED 11/17 1350 Phosphate 250 MG PC AND AT BEDTIME 11/16 0900 AC 11/18 PO 0833 Prednisone 10 MG DAILY 11/22 1000 AC PO 11/24 1001 Prednisone 20 MG DAILY 11/18 1000 AC 11/18 PO 11/21 1001 0850 Prednisone 30 MG DAILY 11/17 1000 DC 11/17 PO 0917 Senna 187 MG AT BEDTIME 11/16 0115 AC 11/17 PO 2131 Thiamine HCl 50 MG DAILY 11/17 1000 AC 11/18 PO 0851 Vital Signs & I&O Last 24 Hrs of Vitals and I&O: Vital Signs Date Time Temp Pulse Resp B/P Pulse O2 O2 Flow FiO2 Ox Delivery Rate 11/18 0850 81 136/60 11/18 0849 81 136/60 11/18 0839 97.4 69 18 140/85 94 Nasal 2.0L Cannula 11/18 0000 95 Nasal 2.0L Cannula 11/17 2315 98.1 70 18 110/60 95 Nasal Cannula 11/17 2132 85 110/60 11/17 1654 98.1 76 18 114/60 94 Room Air 11/17 1643 77 110/62 11/17 1600 Nasal 2.0L Cannula 11/17 1600 95 Nasal 2.0L Cannula 11/17 0917 73 135/69 Intake & Output 11/18 1600 11/18 0800 11/18 0000 Intake Total 100 530 Output Total 350 Balance 100 180 Intake, Oral 100 530 Number 1 Bowel Movements Output, Urine 350 Impression/Plan Impression/Plan Impression/Plan: Physical Exam General Appearance Alert, Oriented X2, Cooperative, Moderate Distress dyspnea Skin No Rashes, No Significant Lesion HEENT Atraumatic, PERRLA, EOMI, Mucous Membr. moist/pink Neck Supple, +2 Carotid Pulse wo Bruit Lymphatic Cervical nl Cardiovascular Tachycarid with normal S1/S2 Lungs Diffuse wheezing in all lung bridges with decreased air entry bilaterally. Decreased basal breath sounds. with crackles Abdomen Normal Bowel Sounds, Soft, Petechia noted on abdomen., tenderness to palpation of epigastric region Neurological Normal Speech, Normal Tone Extremities No Clubbing, No Cyanosis, No Edema, Normal Pulses, No Tenderness/ Swelling Vascular Pulses Symmetrical This is a 71-year-old lady with history of significant smoking, severe COPD with asthmatic component, recurrent respiratory failure with COPD exacerbation, more than [id number] smoking history, FEV1 of 0.8 L on 2-3 L nasal cannula at home usually, still ongoing smoking, previous history of significant alcoholism now has been drinking, depression, hypothyroidism on adequate supplementation, hypertension, previous liver failure with alcoholic hepatitis which seems to have resolved, Now with abd pain and wheezing * Resolved Acute hypoxic resp failure with resolving Acute pulm edema in a lady with high risk for ihd with previous non obs coronary disease, after fluid resusitation for pancreatitis, Acute coronary syndrome could still be a posibility but likely etoh cardiomyopathy * Improving acute pancreatitis with ongoing drinking, slowly improving * Severe COPD with resolving acute exacerbation of COPD * Cardiomyopathy with newly reduced ejection fraction probably alcohol induced rule out acute coronary syndrome with EF now of 35% differential diagnoses include stress-induced cardiomyopathy versus alcoholic cardiomyopathy versus coronary artery disease, cardiology following * Right middle lobe infiltrate probably aspiration pneumonia upon admission resolved * Significant alcoholism with active withdrawal, slowly improving, mild confusion last may be related to tapering of benzos * Sinus tachycardia, improving * Resolving hypercalcemia most likely related to multiple issues patient has been on cinacalcet * Ongoing nicotine use, patient counseled * Hypothyroidism on appropriate supplementation * Hyperlipidemia * Previous history of liver failure / Immunosuppressed state due to alcoholism / Significant fatty liver / Glucose intolerance and B12 deficiency / Peripheral neuropathy. / Previous nonischemic heart disease with previous coronary angiogram which was unremarkable but patient does have cardiomyopathy probably related to previous alcoholism which is mild, watch for chf RECOMMENDATION * May need daily low-dose Ativan for few more days * Lasix 20 mg every other day * ASa statin, * Continue nebulizer therapy with ipratropium and albuterol every 8 hours * Sugar control * Taper prednisone in the next 4 days * Continue her Levoxyl * Keep the head of bed elevated * PO folic acid and b12 daily * Cardiology to perform outpatient stress test Patient to be transferred to hospitalist service will follow as needed pulmonary benson
--- NOTE | 2016-11-18 10:14 | PN- Cardiology ---
Subjective Subjective: Patient remains confused but without specific complaints. Review of Systems: Unobtainable Objective Vital Signs and I&Os Vital Signs Date Time Temp Pulse Resp B/P Pulse O2 O2 Flow FiO2 Ox Delivery Rate 11/18 0923 96 Nasal 2.0L Cannula 11/18 0850 81 136/60 11/18 0849 81 136/60 11/18 0839 97.4 69 18 140/85 94 Nasal 2.0L Cannula 11/18 0000 95 Nasal 2.0L Cannula 11/17 2315 98.1 70 18 110/60 95 Nasal Cannula 11/17 2132 85 110/60 11/17 1654 98.1 76 18 114/60 94 Room Air 11/17 1643 77 110/62 11/17 1600 Nasal 2.0L Cannula 11/17 1600 95 Nasal 2.0L Cannula Intake & Output 11/18 1600 11/18 0800 11/18 0000 11/17 1600 11/17 0800 11/17 0000 Intake Total 100 530 480 100 600 Output Total 350 400 550 Balance 100 180 480 -300 50 Intake, Oral 100 530 480 100 600 Number 1 Bowel Movements Output, Urine 350 400 550 Physical Exam: Patient is a well-developed well-nourished female appearing in no acute distress HEENT is unremarkable Neck is supple there is no JVD Lungs wheezes bilaterally Heart regular rhythm S1 and S2 are normal no murmurs gallops or rubs Abdomen bowel sounds positive Extremities without edema Current Medications: Current Medications Sig/Liz Start time Last Medication Dose Route Stop Time Status Admin Acetaminophen 650 MG Q6P PRN 11/09 2215 AC 11/14 PO 1948 Albuterol Sulfate 3 ML EVERY 4 HRS/AWAKE 11/10 1200 AC 11/18 INH 0920 Aspirin 81 MG DAILY 11/12 1000 AC 11/18 PO 0846 Atorvastatin Calcium 40 MG 1700 11/12 0945 AC 11/17 PO 1643 Cefuroxime Sodium 500 MG Q12 11/11 2200 DC 11/17 PO 11/18 1001 2132 Cinacalcet 30 MG DAILY 11/10 1000 AC 11/18 PO 0852 Enoxaparin Sodium 40 MG DAILY 11/15 1000 AC 11/18 SC 0853 Fenofibrate 145 MG DAILY 11/10 1000 AC 11/18 PO 0851 Folic Acid 1 MG DAILY 11/17 1000 AC 11/18 PO 0846 Insulin Aspart 0 AT BEDTIME 03/24 2200 AC 11/17 SC 2131 Insulin Aspart 0 TIDAC 11/14 0800 AC 11/18 SC 0846 Ipratropium [place] 2.5 ML EVERY 4 HRS/AWAKE 11/10 2000 AC 11/18 INH 0920 Levothyroxine Sodium 0.05 MG MoTuWeThFr@0700 11/10 0700 AC 11/18 PO 0834 Levothyroxine Sodium 0.075 MG SuSa@0700 11/09 2145 AC 11/16 PO 0530 Lisinopril 2.5 MG DAILY 11/17 1448 AC 11/18 PO 0850 Lorazepam 0.5 MG BID 11/18 1000 AC PO 11/25 0959 Lorazepam 0.5 MG ONCE 11/18 0000 CAN PO 11/18 0001 Lorazepam 0.5 MG TID 11/17 1600 DC 11/17 PO 11/18 0000 2132 Lorazepam 0.5 MG Q6H 11/17 0000 DC 11/17 PO 11/17 1801 1223 Lorazepam 0 Q1P PRN 11/09 2115 AC 11/18 IV 0828 Magnesium Oxide 400 MG ONE ONE 11/17 1130 DC 11/17 PO 11/17 1131 1223 Metoprolol Tartrate 12.5 MG BID 11/15 2200 AC 11/18 PO 0849 Mirtazapine 7.5 MG AT BEDTIME 11/09 2200 AC 11/17 PO 2132 Multivitamins 1 TAB DAILY 11/13 1000 AC 11/18 PO 0851 Omeprazole 40 MG DAILY AC 11/10 0700 AC 11/18 PO 0834 Patient Medication 1 ED .STK-MED ONE 11/17 1349 DC Teaching ED 11/17 1350 Phosphate 250 MG PC AND AT BEDTIME 11/16 0900 AC 11/18 PO 0833 Prednisone 10 MG DAILY 11/22 1000 AC PO 11/24 1001 Prednisone 20 MG DAILY 11/18 1000 AC 11/18 PO 11/21 1001 0850 Prednisone 30 MG DAILY 11/17 1000 DC 11/17 PO 0917 Senna 187 MG AT BEDTIME 11/16 0115 AC 11/17 PO 2131 Thiamine HCl 50 MG DAILY 11/17 1000 AC 11/18 PO 0851 Results Last 48 Hrs of Labs/Mics: Laboratory Tests 11/17/16 0640: Anion Gap 3 L, Estimated GFR > 60, BUN/Creatinine Ratio 25.7 H, Phosphorus 4.0 , Magnesium 1.6, CBC w Diff NO MAN DIFF REQ, RBC 3.53 L, MCV 105.8 H, MCH 35.2 H, RDW 13.8, MPV 9.6, Gran % 68.2, Lymphocytes % 25.1, Monocytes % 5.6, Eosinophils % 0.8, Basophils % 0.3, Absolute Granulocytes 7.5 H, Absolute Lymphocytes 2.8, Absolute Monocytes 0.6, Absolute Eosinophils 0.1, Absolute Basophils 0, PUBS MCHC 33.3 Telemetry personally reviewed sinus rhythm Assessment/Plan Assessment/Plan 1. EtOH pancreatitis 2. Possible pneumonia 3. New cardiomyopathy of unclear etiology, differential includes EtOH cardiomyopathy, stress-induced cardiomyopathy, or ischemic cardiomyopathy 4. Chronic alcohol abuse 5. Elevated troponins possibly due to demand ischemia versus NSTEMI 6. COPD 7. Hypomagnesemia Recommendations 1. Continue current medications 2. Maintain telemetry 3. Stress refraining from alcohol 4. Patient will require an ischemic evaluation as an outpatient. Continue telemetry? Yes
[2016-11-18 15:51] VITALS: BP 108/60
[2016-11-18 23:15] VITALS: BP 100/62
--- NOTE | 2016-11-18 23:43 | NUR ---
late entry: since 1900, pt becoming increasingly confused and difficult to reorient, becoming more agitated and aggressive towards staff calling out "they're all assholes". attempting to leave, looking for her jacket and shoes to just "walk out". not staying in bed or in room, bed alarm going off. pt very impulsive and turns off alarm herself. pt wandering into the other pt rooms and very paranoid about any noise she hears. at 2100, head of sales promotion was placed to avoid pt wandering and falling. pt refusing all po meds including the ativan tape and ativan ciwa protocol. refusing assessment and this rn coming near her. head of sales promotion in place. will ctm.
[2016-11-19 08:00] VITALS: BP 130/50
--- NOTE | 2016-11-19 09:02 | PN- Housestaff ---
JORDAN HOFFMANN,TONE 11/19/16 0902: Subjective Follow-up For: Alcohol detox Acute hypoxic respiratory failure secondary to COPD exacerbation/pneumonia Pancreatitis Subjective: Patient feeling well today. Oriented 3. Stable and calm this morning. Able to maintain conversation appropriately and very pleasant. Overnight was a concern that patient is delirious and agitated. But she did not receive any Ativan except for the scheduled by mouth medications. She was reoriented to which she responded well. Denies chest pain, shortness of breath on ambulation. Currently on oxygen 2 L nasal cannula. Patient is on oxygen at home at night and as needed during the day based on her activity level. Review of Systems Constitutional: Reports: see HPI. Objective Last 24 Hrs of Vital Signs/I&O Vital Signs Date Time Temp Pulse Resp B/P Pulse O2 O2 Flow FiO2 Ox Delivery Rate 11/19 0937 88 142/82 11/19 0906 98.8 94 20 140/72 95 Nasal 2.0L Cannula 11/19 0835 95 Nasal 2.0L Cannula 11/19 0800 Nasal 2.0L Cannula 11/19 0600 75 11/19 0400 72 11/19 0200 78 11/19 0000 85 11/18 2315 98.2 76 18 100/62 97 Nasal 2.0L Cannula 11/18 2200 78 11/18 2050 95 Nasal 2.0L Cannula 11/18 2000 80 11/18 1634 96 Nasal 2.0L Cannula 11/18 1551 97.6 69 20 108/60 97 Nasal 2.0L Cannula Intake & Output 11/19 1600 11/19 0800 11/19 0000 Intake Total 480 200 Output Total Balance 480 200 Intake, Oral 480 200 Physical Exam General Appearance: Alert, Oriented X3, Cooperative Skin: No Rashes Cardiovascular: Regular Rate, Normal S1, Normal S2, No Murmurs Lungs: bilateral breath sounds clear, no crackles present Abdomen: Normal Bowel Sounds, Soft, No Tenderness Neurological: Normal Speech Extremities: No Clubbing, No Cyanosis, No Edema Current Medications: Current Medications Sig/Liz Start time Last Medication Dose Route Stop Time Status Admin Acetaminophen 650 MG Q6P PRN 11/09 2215 AC 11/14 PO 1948 Albuterol Sulfate 3 ML EVERY 4 HRS/AWAKE 11/10 1200 AC 11/19 INH 1145 Aspirin 81 MG DAILY 11/12 1000 AC 11/19 PO 0935 Atorvastatin Calcium 40 MG 1700 11/12 0945 AC 11/18 PO 1813 Cinacalcet 30 MG DAILY 11/10 1000 AC 11/19 PO 0937 Enoxaparin Sodium 40 MG DAILY 11/15 1000 AC 11/19 SC 0937 Fenofibrate 145 MG DAILY 11/10 1000 AC 11/19 PO 0937 Folic Acid 1 MG DAILY 11/17 1000 AC 11/19 PO 0936 Furosemide 20 MG Q48 11/18 1145 AC 11/18 PO 1232 Insulin Aspart 0 AT BEDTIME 11/14 2200 AC 11/17 SC 2131 Insulin Aspart 0 TIDAC 11/14 0800 AC 11/19 SC 0826 Ipratropium [place] 2.5 ML EVERY 4 HRS/AWAKE 11/10 2000 AC 11/19 INH 1145 Levothyroxine Sodium 0.05 MG MoTuWeThFr@0700 11/10 0700 AC 11/19 PO 0824 Levothyroxine Sodium 0.075 MG SuSa@0700 11/09 2145 AC 11/16 PO 0530 Lisinopril 2.5 MG DAILY 11/17 1448 AC 11/19 PO 0937 Lorazepam 0.5 MG BID 11/18 1000 AC 11/19 PO 11/25 0959 0935 Lorazepam 0 Q1P PRN 11/09 2115 AC 11/18 IV 0828 Metoprolol Tartrate 12.5 MG BID 11/15 2200 AC 11/19 PO 0936 Mirtazapine 7.5 MG AT BEDTIME 11/09 2200 AC 11/17 PO 2132 Multivitamins 1 TAB DAILY 11/13 1000 AC 11/19 PO 0937 Omeprazole 40 MG DAILY AC 11/10 0700 AC 11/19 PO 0824 Patient Medication 1 ED .STK-MED ONE 11/18 1353 DC Teaching ED 11/18 1354 Phosphate 250 MG PC AND AT BEDTIME 11/16 0900 AC 11/19 PO 0824 Prednisone 10 MG DAILY 11/22 1000 AC PO 11/24 1001 Prednisone 20 MG DAILY 11/18 1000 AC 11/19 PO 11/21 1001 0936 Senna 187 MG AT BEDTIME 11/16 0115 AC 11/17 PO 2131 Thiamine HCl 50 MG DAILY 11/17 1000 AC 11/19 PO 0937 Last 24 Hrs of Lab/Pablo Results Last 24 Hrs of Labs/Mics: No labs ordered Assessment/Plan Assessment: Presentation Patient is 71-year-old female, active smoker with past medical history of COPD on 2.5 L nocturnal O2, alcohol dependence with h/o DT's, alcoholic cardiomyopathy and pancreatitis, HTN, hypercalcemia on cinacalcet, hypothyroidism, B12 deficiency with peripheral neuropathy, presented with chief complaint of gradual worsening of dyspnea on exertion with increasing use of inhalers and daytime use of oxygen. Patient also reported cough associated with chest tightness and wheezing. Patient did not report of any sick contacts at home. She was last admitted to [facility] for COPD exacerbation in September 2015. Patient drinks alcohol every day 2-3 glass, her last drink was yesterday 1 PM. Hospital course in ICU Patient was transferred to ICU on 11/12/16 after she was noted to be extremely agitated requiring increased amounts of Ativan. She was also pale, diaphoretic and minimally responsive to sternal rubs. She was tachycardic to a heart rate of 140 and her oxygen saturations were dropping to 80s. Chest x-ray remonstrated cardiogenic pulmonary edema, for which she was given Lasix and IV fluids which were previously given for pancreatitis were discontinued. During this time her troponins also peaked to 0.80. Cardiology consult service was on board and it was thought that she likely has demand ischemia secondary to tachycardia and hypotension. Active issues: COPD exacerbation Pneumonia Positive troponin, NSTEMI vs demand ischemia Flash pulmonary edema, hx of alcoholic cardiomyopathy Hypotension Sinus tachycardia Alcohol withdrawal Pancreatitis Alcohol detox - Patient has been drinking 2-3 glasses of alcohol every day prior to her admission - Her CIWA overnight was high. There was a concern for potential hallucinations. This is most likely not alcohol withdrawal. As her CIWA has been consistently better over the previous couple of days. -She did not receive any IV when necessary Ativan. She was reoriented - She is at her last dose of Ativan today. - loft worker head consult was recommended while she was in the hospital. She consistently refused as she has been off drinking while she is in the hospital and she can probably stop drinking after going home. - Patient's family was updated by me this morning. We'll continue the niece and give an update about patient's conditions and she can be discharged. Niece was concerned about her alcohol and cigarette smoking. Unfortunately patient is aware of the risks and does not want any further help in this issue. Acute on chronic hypoxic respiratory failure Patient came in with COPD exacerbation with a questionable right middle lobe pneumonia. While she was getting IV fluids for pancreatitis she went into pulmonary edema. In ICU she has been given Lasix based on daily assessments. She is getting Lasix 20 mg by mouth every other day. Pulmonary embolism was ruled out by CTA Her blood cultures remain negative however she was started on antibiotics and she will complete Ceftin for a total of 7 days. Pulmonary consult service was on board. IV steroids are switched to by mouth prednisone on 11/11/16- patient is on a prednisone taper over 7 days. Smoking cessation Patient is counseled over smoking cessation [facility] nebs as needed Demand ischemia Patient reported of chest tightness on admission, her troponins were negative initially however the peaked to 0.80 on 11/12. Cardiology consult service was on board she likely had the mild ischemia. Patient was initially started on heparin drip for 24/48 hours. And also started on metoprolol 25 twice a day which was later decreased to 12.5 twice a day. Cardiac catheterization was not considered at that point due to her multiple medical comorbidities. Patient will likely be a candidate for further ischemic evaluation with nuclear stress test in the future. Lisinopril 2.5 mg daily is added. Pancreatitis CT scan done on 11/09/16 suggestive of acute pancreatitis in the setting of alcohol use Lipase and amylase elevated to 4525 and 744 respectively Patient was kept nothing by mouth and started on Ringer's lactate. However the fluids were stopped as patient went into pulmonary edema. She does not report of any abdominal pain for now. She was on morphine for her pain control. Hypomagnesemia Probably second to alcohol use, Magnesium was repleted aggressively, we'll continue to monitor Hypercalcemia Will continue her Cinacalcet. She follows Dr. culp as her financial specialist Hyperglycemia. Patient is kept on fingersticks, this morning her blood sugar was 280+ Her HbA1c was 5.6 however she is on steroids which could be the cause of her hyperglycemia She is on a NovoLog sliding scale we'll continue to monitor her fingersticks. Elevated total bilirubin and AST will continue to monitor DVT ppx Lovenox Full code. Problem List: 1. Alcohol dependence 2. COPD EXACERBATION 3. Smoker 4. Bronchitis 5. COPD (chronic obstructive pulmonary disease) Pain Ratin Pain Location: none Pain Goal: Remain pain free Pain Plan: as mentioned Tomorrow's Labs & Rationales: pt to be discharged DENICE BERUMEN 11/19/16 1037: Attending MD Review Statement Attending Statement Attending MD Statement: examined this patient, discuss w/resident/PA/WEIGHER AND GRADER, agreed w/resident/PA/WEIGHER AND GRADER, discussed with family, reviewed EMR data (avail), discussed with nursing, discussed with case mgmt, reviewed images Attending Assessment/Plan: This is a 71-year-old lady with history of significant smoking, severe COPD with asthmatic component, recurrent respiratory failure with COPD exacerbation, more than [id number] smoking history, FEV1 of 0.8 L on 2-3 L nasal cannula at home usually, still ongoing smoking, previous history of significant alcoholism now has been drinking, depression, hypothyroidism on adequate supplementation, hypertension, previous liver failure with alcoholic hepatitis which seems to have resolved, Now with abd pain and wheezing. * Resolved Acute hypoxic resp failure with resolving Acute pulm edema in a lady with high risk for ihd with previous non obs coronary disease, after fluid resusitation for pancreatitis, Acute coronary syndrome could still be a posibility but likely etoh cardiomyopathy * Significant acute pancreatitis with alcohol abuse * Severe COPD with acute exacerbation of COPD * watch for alcohol withdrawal * Resolving hypercalcemia most likely related to multiple issues patient has been on cinacalcet * Hypothyroidism on appropriate supplementation * Hyperlipidemia * Previous history of liver failure / Immunosuppressed state due to alcoholism / Significant fatty liver / Glucose intolerance and B12 deficiency / Peripheral neuropathy. / Previous nonischemic heart disease with previous coronary angiogram which was unremarkable but patient does have cardiomyopathy probably related to previous alcoholism which is mild. PLAN * Lasix every other day, Prednisone taper short course at d/c. * ASa statin, ECHO EF 30-35%. alcohol related cardiomyopathy vs ischemic, cardiology recommend stress test as outpatient. * Ativan prn, pancreatitis improved clinically. likely alcohol related. * completed Ceftin 500 twice a day (total 7 days) * PO thiamine, folic acid and b12 daily, resume home meds., d/c today, f/u PCP and cardiology as o/p within a week of d.c
[2016-11-19 09:06] VITALS: BP 140/72
[2016-11-19 09:37] VITALS: BP 142/82
--- NOTE | 2016-11-19 14:12 | PN- Pulmonary ---
Subjective HPI/Critical Care Issues: Patient feeling well today. Oriented 3. Stable and calm this morning. Able to maintain conversation appropriately and very pleasant. Overnight was a concern that patient is delirious and agitated. But she did not receive any Ativan except for the scheduled by mouth medications. She was reoriented to which she responded well. Denies chest pain, shortness of breath on ambulation. Currently on oxygen 2 L nasal cannula. Patient is on oxygen at home at night and as needed during the day based on her activity level. Review of Systems Constitutional: Reports: see HPI. Objective Current Medications: Current Medications Sig/Liz Start time Last Medication Dose Route Stop Time Status Admin Acetaminophen 650 MG Q6P PRN 11/09 2215 AC 11/14 PO 1948 Albuterol Sulfate 3 ML EVERY 4 HRS/AWAKE 11/10 1200 AC 11/19 INH 1145 Aspirin 81 MG DAILY 11/12 1000 AC 11/19 PO 0935 Atorvastatin Calcium 40 MG 1700 11/12 0945 AC 11/18 PO 1813 Cinacalcet 30 MG DAILY 11/10 1000 AC 11/19 PO 0937 Enoxaparin Sodium 40 MG DAILY 11/15 1000 AC 11/19 SC 0937 Fenofibrate 145 MG DAILY 11/10 1000 AC 11/19 PO 0937 Folic Acid 1 MG DAILY 11/17 1000 AC 11/19 PO 0936 Furosemide 20 MG Q48 11/18 1145 AC 11/18 PO 1232 Insulin Aspart 0 AT BEDTIME 11/14 2200 AC 11/17 SC 2131 Insulin Aspart 0 TIDAC 11/14 0800 AC 11/19 SC 1244 Ipratropium [place] 2.5 ML EVERY 4 HRS/AWAKE 11/10 2000 AC 11/19 INH 1145 Levothyroxine Sodium 0.05 MG MoTuWeThFr@00 11/10 0700 AC 11/19 PO 0824 Levothyroxine Sodium 0.075 MG SuSa@0700 11/09 2145 AC 11/16 PO 0530 Lisinopril 2.5 MG DAILY 11/17 1448 AC 11/19 PO 0937 Lorazepam 0.5 MG BID 11/18 1000 AC 11/19 PO 04/ 0959 0935 Lorazepam 0 Q1P PRN 11/09 2115 AC 11/18 IV 0828 Metoprolol Tartrate 12.5 MG BID 11/15 2200 AC 11/19 PO 0936 Mirtazapine 7.5 MG AT BEDTIME 11/09 2200 AC 11/17 PO 2132 Multivitamins 1 TAB DAILY 11/13 1000 AC 11/19 PO 0937 Omeprazole 40 MG DAILY AC 11/10 0700 AC 11/19 PO 0824 Phosphate 250 MG PC AND AT BEDTIME 11/16 0900 AC 11/19 PO 1244 Prednisone 10 MG DAILY 11/22 1000 AC PO 11/24 1001 Prednisone 20 MG DAILY 11/18 1000 AC 11/19 PO 11/21 1001 0936 Senna 187 MG AT BEDTIME 11/16 0115 AC 11/17 PO 2131 Thiamine HCl 50 MG DAILY 11/17 1000 AC 11/19 PO 0937 Vital Signs & I&O Last 24 Hrs of Vitals and I&O: Vital Signs Date Time Temp Pulse Resp B/P Pulse O2 O2 Flow FiO2 Ox Delivery Rate 11/19 0937 88 142/82 11/19 0906 98.8 94 20 140/72 95 Nasal 2.0L Cannula 11/19 0835 95 Nasal 2.0L Cannula 11/19 0800 Nasal 2.0L Cannula 11/19 0600 75 11/19 0400 72 11/19 0200 78 11/19 0000 85 11/18 2315 98.2 76 18 100/62 97 Nasal 2.0L Cannula 11/18 2200 78 11/18 2050 95 Nasal 2.0L Cannula 11/18 2000 80 11/18 1634 96 Nasal 2.0L Cannula 11/18 1551 97.6 69 20 108/60 97 Nasal 2.0L Cannula Intake & Output 11/19 1600 11/19 0800 11/19 0000 Intake Total 480 200 Output Total Balance 480 200 Intake, Oral 480 200 Impression/Plan Impression/Plan Impression/Plan: Physical Exam General Appearance Alert, Oriented X2, Cooperative, Moderate Distress dyspnea Skin No Rashes, No Significant Lesion HEENT Atraumatic, PERRLA, EOMI, Mucous Membr. moist/pink Neck Supple, +2 Carotid Pulse wo Bruit Lymphatic Cervical nl Cardiovascular Tachycarid with normal S1/S2 Lungs Diffuse wheezing in all lung bridges with decreased air entry bilaterally. Decreased basal breath sounds. with crackles Abdomen Normal Bowel Sounds, Soft, Petechia noted on abdomen., tenderness to palpation of epigastric region Neurological Normal Speech, Normal Tone Extremities No Clubbing, No Cyanosis, No Edema, Normal Pulses, No Tenderness/ Swelling Vascular Pulses Symmetrical This is a 71-year-old lady with history of significant smoking, severe COPD with asthmatic component, recurrent respiratory failure with COPD exacerbation, more than [id number] smoking history, FEV1 of 0.8 L on 2-3 L nasal cannula at home usually, still ongoing smoking, previous history of significant alcoholism now has been drinking, depression, hypothyroidism on adequate supplementation, hypertension, previous liver failure with alcoholic hepatitis which seems to have resolved, Now with abd pain and wheezing * Resolved Acute hypoxic resp failure with resolving Acute pulm edema in a lady with high risk for ihd with previous non obs coronary disease, after fluid resusitation for pancreatitis, Acute coronary syndrome could still be a posibility but likely etoh cardiomyopathy * Resolved acute pancreatitis with ongoing drinking, slowly improving * Severe COPD with resolving acute exacerbation of COPD * Cardiomyopathy with newly reduced ejection fraction probably alcohol induced rule out acute coronary syndrome with EF now of 35% differential diagnoses include stress-induced cardiomyopathy versus alcoholic cardiomyopathy versus coronary artery disease, cardiology following * Right middle lobe infiltrate probably aspiration pneumonia upon admission resolved * Significant alcoholism with active withdrawal, slowly improving, mild confusion last may be related to tapering of benzos * Sinus tachycardia, improving * Resolving hypercalcemia most likely related to multiple issues patient has been on cinacalcet * Ongoing nicotine use, patient counseled * Hypothyroidism on appropriate supplementation * Hyperlipidemia * Previous history of liver failure / Immunosuppressed state due to alcoholism / Significant fatty liver / Glucose intolerance and B12 deficiency / Peripheral neuropathy. / Previous nonischemic heart disease with previous coronary angiogram which was unremarkable but patient does have cardiomyopathy probably related to previous alcoholism which is mild, watch for chf RECOMMENDATION Stable cont all meds To be dcd soon will follow as out pt
--- NOTE | 2016-11-19 15:08 | Discharge Summary ---
Visit Information Visit Dates Admission Date: 11/09/16 Discharge Date: 11/19/16 Hospital Course Course [facility]ending Phys[facility] Primary Care Physician: SANAM HOFFMANN,[facility] Hospital Course: Patient is 71-year-old female, active smoker with past medical history of COPD on 2.5 L nocturnal O2, alcohol dependence with h/o DT's, alcoholic cardiomyopathy and pancreatitis, HTN, hypercalcemia on cinacalcet, hypothyroidism, B12 deficiency with peripheral neuropathy, presented with chief complaint of gradual worsening of dyspnea on exertion with increasing use of inhalers and daytime use of oxygen. Patient also reported cough associated with chest tightness and wheezing. Patient did not report of any sick contacts at home. She was last admitted to [facility] for COPD exacerbation in September 2015. Patient drinks alcohol every day 2-3 glass, her last drink was yesterday 1 PM. Hospital course in ICU Patient was transferred to ICU on 11/12/16 after she was noted to be extremely agitated requiring increased amounts of Ativan. She was also pale, diaphoretic and minimally responsive to sternal rubs. She was tachycardic to a heart rate of 140 and her oxygen saturations were dropping to 80s. Chest x-ray remonstrated cardiogenic pulmonary edema, for which she was given Lasix and IV fluids which were previously given for pancreatitis were discontinued. During this time her troponins also peaked to 0.80. Cardiology consult service was on board and it was thought that she likely has demand ischemia secondary to tachycardia and hypotension. Active issues: COPD exacerbation Pneumonia Positive troponin, NSTEMI vs demand ischemia Flash pulmonary edema, hx of alcoholic cardiomyopathy Hypotension Sinus tachycardia Alcohol withdrawal Pancreatitis Alcohol detox Patient has been drinking 2-3 glasses of alcohol every day prior to her admission, now her several scores are 0. She is on Ativan taper by mouth. Patient is switched to by mouth multivitamins, folic acid and thiamine. Patient had a prolonged ativan taper while in patient. Acute on chronic hypoxic respiratory failure Patient came in with COPD exacerbation with a questionable right middle lobe pneumonia. While she was getting IV fluids for pancreatitis she went into pulmonary edema. In ICU she has been given Lasix based on daily assessments. She is getting Lasix 20 mg by mouth every other day. Pulmonary embolism was ruled out by CTA. Her blood cultures remained negative however she was started on antibiotics and she will complete Ceftin for a total of 7 days. Pulmonary consult service was on board patient will follow up with Dr. Sullivan upon discharge. IV steroids were switched to by mouth prednisone on 11/11/16- patient is on a prednisone taper over 7 days. Smoking cessation Patient was extensively counseled over smoking cessation. Demand ischemia Patient reported of chest tightness on admission, her troponins were negative initially however the peaked to 0.80 on 11/12. Cardiology consult service was on board she likely had the mild ischemia. Patient was initially started on heparin drip for 24/48 hours. And also started on metoprolol 25 twice a day which was later decreased to 12.5 twice a day. Cardiac catheterization was not considered at that point due to her multiple medical comorbidities. Patient will likely be a candidate for further ischemic evaluation with nuclear stress test in the future. Lisinopril 2.5 mg daily was added. Pancreatitis CT scan done on 11/09/16 suggestive of acute pancreatitis in the setting of alcohol use Lipase and amylase elevated to 4525 and 744 respectively. Patient was kept nothing by mouth and started on Ringer's lactate. However the fluids were stopped as patient went into pulmonary edema. She does not report of any abdominal pain for now. She was on morphine for her pain control. Hypomagnesemia Probably second to alcohol use, Magnesium was repleted aggressively. Hypercalcemia Continued her Cinacalcet. 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 Patient was kept on fingersticks. Her HbA1c was 5.6 however she was on steroids which could be the cause of her hyperglycemia. She was on a NovoLog sliding scale Allergies: Coded Allergies: NO KNOWN ALLERGIES (06/08/12) Disposition Summary Disposition Principal Diagnosis: Etoh detox Additional Diagnosis: acute hypoxic respiratory failure Discharge Disposition: home or self care Discharge Instructions General Discharge Information Code Status: Full Code Patient's Diet: heart healthy Patient's Activity: as tolerated Follow-Up Instructions/Appts: Please follow up with PCP upon discharge. Medications at Discharge Discharge Medications: Stop taking the following medications: Furosemide (Lasix) 20 MG TABLET ORAL DAILY Continue taking these medications: Levothyroxine Sodium (Levothyroxine Sodium) 50 MCG TABLET 1 Tablet ORAL M,T,W,TH,FR Qty = 90 Comments: Last Taken: 11/19/16 Time: 8:30 AM Levothyroxine Sodium (Levoxyl) 75 MCG TABLET 1 Tablet ORAL SA,BAEZA Comments: NOT GIVEN IN HOSPITAL Potassium Chloride (Potassium Chloride) 20 MEQ TAB.ER.PRT 1 Tablet ORAL DAILY Qty = 90 Comments: NOT GIVEN IN HOSPITAL Loratadine (Claritin) (Unknown Strength) TABLET 10 Milligram ORAL DAILY Days = 30 Comments: NOT GIVEN IN HOSPITAL Cholecalciferol (Vitamin D3) (Vitamin D) 2,000 UNIT CAPSULE 1 Capsule ORAL DAILY Comments: NOT GIVEN IN HOSPITAL Vitamin E Mixed (Vitamin E) 400 UNIT CAPSULE 1 Capsule ORAL DAILY Comments: NOT GIVEN IN HOSPITAL Tiotropium [place] (Spiriva) 18 MCG CAP.W.DEV 1 Capsule Inhale through mouth DAILY Comments: NOT GIVEN IN HOSPITAL Fluticasone/Salmeterol (Advair 250-50 Diskus) 250 MCG-50 MCG/DOSE BLST.W.DEV 1 Puff Inhale through mouth TWICE DAILY Comments: NOT GIVEN IN HOSPITAL Albuterol Sulfate (Albuterol Sulfate) 2.5 MG/3 ML (0.083 %) VIAL.NEB 1 Vial Inhale Solution TWICE DAILY Comments: Last Taken: 11/19/16 Time: 12:00 PM Cinacalcet HCl (Sensipar) 30 MG TABLET 1 Tablet ORAL DAILY Qty = 25 Comments: Last Taken: 11/19/16 Time: 9:30 AM Omeprazole (Omeprazole) 40 MG CAPSULE.DR 1 Capsule ORAL DAILY Qty = 90 Comments: Last Taken: 11/19/16 Time: 8:30 AM Multivitamin,Ther and Minerals (Multivitamins With Minerals Hp) 1 EACH CAPSULE 1 Capsule ORAL DAILY Comments: Last Taken: 11/19/16 Time: 9:30 AM Vitamin B Complex (B Complete) 1 EACH TABLET 1 Tablet ORAL DAILY Comments: VITAMIN B1 Last Taken: 11/19/16 Time: 9:30 AM Cyanocobalamin (Vitamin B-12) 1,000 MCG TABLET 1 Tablet ORAL DAILY Instructions: NOT GIVEN IN HOSPITAL Mirtazapine (Remeron) 15 MG TAB.RAPDIS 0.5 Tablet ORAL TAKE AT BEDTIME Comments: Last Taken: 11/17/16 Time: 9:30 PM Fenofibrate (Fenofibrate) 160 MG TABLET 1 Tablet ORAL Every night Comments: Last Taken: 11/19/16 Time: 9:30 AM Albuterol Sulfate (Proair Hfa) 90 MCG HFA.AER.AD 2 Puff Inhale through mouth as needed for RESPIRATORY Comments: NOT GIVEN IN HOSPITAL Start taking the following new medications: Aspirin (Aspirin*) 81 MG TAB.CHEW 1 Tablet ORAL DAILY Days = 30 No Refills Atorvastatin Calcium (Atorvastatin Calcium) 40 MG TABLET 40 Milligram ORAL 5 PM Qty = 60 No Refills Lisinopril (Lisinopril) 2.5 MG TABLET 1 Tablet ORAL DAILY Qty = 30 No Refills Metoprolol Tartrate (Metoprolol Tartrate) 25 MG TABLET 0.5 Tablet ORAL TWICE DAILY Qty = 60 No Refills Furosemide (Lasix) 20 MG TABLET 1 Tablet ORAL EVERY 48 HOURS (Every 2 days) Qty = 30 No Refills Instructions: every other day Prednisone (Prednisone) 10 MG TABLET 1 Tablet ORAL DAILY Qty = 5 No Refills Instructions: TAKE 2 TABS ON 11/19/16 - 11/20/16 TAKE 1 TAB FROM 11/21/16- 11/22/16 Copies To: [place] HOFFMANN,DENICE; JAVAN HOFFMANN,PAMELLA Gordon; SANAM HOFFMANN,EUNICE
== END 2016-11-19 14:32 | disposition home health service (06) | DRG 193 ==
LOC: ENRESERVTM → ENRESERVDT → ERH 16:49 → 1NO 19:11 → ENPENDDIS 19:11 → ERHI 19:11 → 1NO 19:11 → CRI 11-12 03:06 → 1NO 11-16 13:44
PROVIDERS: Internal Medicine; Internal Medicine Pulmonary Disease; Physician Assistant; Radiology Diagnostic Radiology; Student in an Organized Health Care Education/Training Program; ADMIT Student in an Organized Health Care Education/Training Program
DX: J18.9 Pneumonia, unspecified organism (principal); J96.21 Acute and chronic respiratory failure with hypoxia; J81.0 Acute pulmonary edema; J44.1 Chronic obstructive pulmonary disease with (acute) exacerbation; K85.20 Alcohol induced acute pancreatitis without necrosis or infection; I42.6 Alcoholic cardiomyopathy; I24.8 Other forms of acute ischemic heart disease; E83.42 Hypomagnesemia; F10.239 Alcohol dependence with withdrawal, unspecified; Z99.81 Dependence on supplemental oxygen; E83.52 Hypercalcemia; G62.1 Alcoholic polyneuropathy; G62.9 Polyneuropathy, unspecified; Z87.891 Personal history of nicotine dependence; Y90.0 Blood alcohol level of less than 20 mg/100 ml; I10 Essential (primary) hypertension; E78.5 Hyperlipidemia, unspecified; E03.9 Hypothyroidism, unspecified
CPT/HCPCS: 1NP; 1NSP; CCU; 36415; 81001; 82436; 87040; 87070; 87086; 87449; 87450; 87804; 87804-59; 93005; 93010; 93306; 96365; 96366; 96375; 96376; 97116-GO; 97162-GP; 99291; G0480; J0456; J0696; J1644; J1650; J1815; J1940; J2930; J3490; J7040; J7060; J7120; J7512; Q9957